=== PATIENT | male | born 1980 | race Caucasian/White ===

== ENCOUNTER 2016-03-21 15:28 | Observation (INO) | payer MEDICAID ==
[~2016-03-21] VITALS: Ht 182.9 cm; Wt 106.0 kg
[2016-03-21 15:28] VITALS: BP 119/70; PULSE 96; RESP 18; TEMP 98; O2SAT 97
--- NOTE | 2016-03-21 15:49 | PD ---
HPI Chief Complaint: Psychiatric Symptoms Time Seen by Provider: 15:30 Travel History International Travel<30 days: No Contact w/Intl Traveler<30days: No Traveled to known affect area: No History of Present Illness HPI 36-year-old male brought in by ambulance after being brought first to [facility] under Diaz act by PD for intentional overdose, here for medical clearance. The patient admits to taking ten 300 mg Seroquel, one 25 mg Vistaril, one 40 mg Prozac, and two 100 mg gabapentin earlier today. The patient admits to doing this in an attempt to kill himself. He drank alcohol yesterday, but denies alcohol or illicit drugs today. He states he feels a little bit dizzy. No other physical complaints. [facility] Social History Tobacco Use: Yes Allergies-Medications (Allergen,Severity, Reaction): Coded Allergies: No Known Allergies (Unverified , 03/21/16) Reported Meds & Prescriptions Reported Meds & Active Scripts Active Reported Seroquel (Quetiapine Fumarate) 100 Mg Tab 100 Mg PO TID Gabapentin 600 Mg Tab 600 Mg PO BID Xanax (Alprazolam) 2 Mg Tab 2 Mg PO DAILY PRN Prozac (Fluoxetine HCl) 40 Mg Cap 40 Mg PO DAILY Vistaril (Hydroxyzine Pamoate) 50 Mg Cap 50 Mg PO DAILY Gabapentin 300 Mg Cap 300 Mg PO BID Review of Systems Except as stated in HPI: all other systems reviewed are Neg Physical Exam Narrative GENERAL: Well-developed, well-nourished, awake, alert, no acute distress. SKIN: Warm and dry. HEAD: Atraumatic. Normocephalic. EYES: Pupils equal and round. No scleral icterus. No injection or drainage. ENT: No nasal bleeding or discharge. Mucous membranes pink and moist. NECK: Trachea midline. No JVD. CARDIOVASCULAR: Regular rate and rhythm. No murmur appreciated. RESPIRATORY: No accessory muscle use. Clear to auscultation. Breath sounds equal bilaterally. GASTROINTESTINAL: Abdomen soft, non-tender, nondistended. MUSCULOSKELETAL: No obvious deformities. No clubbing. No cyanosis. No edema. NEUROLOGICAL: Awake and alert. No obvious cranial nerve deficits. Motor grossly within normal limits. Normal speech. PSYCHIATRIC: Flat affect. Poor eye contact. Data Data Last Documented VS Vital Signs Date Time Temp Pulse Resp B/P Pulse Ox O2 Delivery O2 Flow Rate FiO2 03/21/16 17:10 82 18 115/79 100 Nasal Cannula 2 03/21/16 15:28 98.0 Orders Electrocardiogram (03/21/16 ) Complete Blood Count With Diff (03/21/16 15:30) Comprehensive Metabolic Panel (03/21/16 15:30) Drug Screen, Random Urine (03/21/16 15:30) Alcohol (Ethanol) (03/21/16 15:30) Salicylates (Aspirin) (03/21/16 15:30) Tylenol (Acetaminophen) (03/21/16 15:30) Psych Screen (03/21/16 15:30) Arterial Blood Gas (Abg) (03/21/16 ) Sodium Chlor 0.9% 1000 Ml Inj (Ns 1000 M (03/21/16 16:30) Admit Order (Ed Use Only) (03/21/16 17:24) Place In Observation (03/21/16 ) Labs Laboratory Tests Test 03/21/16 03/21/16 15:40 16:25 White Blood Count 9.1 TH/MM3 Red Blood Count 3.84 MIL/MM3 Hemoglobin 11.5 GM/DL Hematocrit 34.2 % Mean Corpuscular Volume 89.1 FL Mean Corpuscular Hemoglobin 30.0 PG Mean Corpuscular Hemoglobin 33.7 % Concent Red Cell Distribution Width 14.4 % Platelet Count 260 TH/MM3 Mean Platelet Volume 7.6 FL Neutrophils (%) (Auto) 65.2 % Lymphocytes (%) (Auto) 25.0 % Monocytes (%) (Auto) 6.1 % Eosinophils (%) (Auto) 3.5 % Basophils (%) (Auto) 0.2 % Neutrophils # (Auto) 5.9 TH/MM3 Lymphocytes # (Auto) 2.3 TH/MM3 Monocytes # (Auto) 0.6 TH/MM3 Eosinophils # (Auto) 0.3 TH/MM3 Basophils # (Auto) 0.0 TH/MM3 CBC Comment DIFF FINAL Differential Comment Blood Gas Puncture Site RT RADIAL Blood Gas Patient Temperature 98.6 Blood Gas HCO3 28 mmol/L Blood Gas Base Excess 3.6 mmol/L Blood Gas Oxygen Saturation 88 % Arterial Blood pH 7.42 Arterial Blood Partial 44 mmHg Pressure CO2 Arterial Blood Partial 68 mmHG Pressure O2 Arterial Blood Oxygen Content 15.0 Vol % Arterial Blood 3.3 % Carboxyhemoglobin Arterial Blood Methemoglobin 2.1 % Blood Gas Hemoglobin 12.1 G/DL Blood Gas Inspired Oxygen 21 % Sodium Level 142 MEQ/L Potassium Level 4.2 MEQ/L Chloride Level 106 MEQ/L Carbon Dioxide Level 31.7 MEQ/L Anion Gap 4 MEQ/L Blood Urea Nitrogen 8 MG/DL Creatinine 0.95 MG/DL Estimat Glomerular Filtration 89 ML/MIN Rate Random Glucose 115 MG/DL Calcium Level 8.2 MG/DL Total Bilirubin 0.3 MG/DL Aspartate Amino Transf 38 U/L (AST/SGOT) Alanine Aminotransferase 24 U/L (ALT/SGPT) Alkaline Phosphatase 70 U/L Total Protein 6.4 GM/DL Albumin 3.2 GM/DL Salicylates Level LESS THAN 1.7 MG/DL Acetaminophen Level LESS THAN 2.0 MCG/ML Ethyl Alcohol Level LESS THAN 3 MG/DL Urine Opiates Screen NEG Urine Barbiturates Screen NEG Urine Amphetamines Screen NEG Urine Benzodiazepines Screen POS Urine Cocaine Screen NEG Urine Cannabinoids Screen NEG MDM Medical Decision Making Medical Screen Exam Complete: Yes Emergency Medical Condition: Yes Differential Diagnosis Antipsychotic overdose, coingestion, depression, suicidal ideation Narrative Course Poison control contacted shortly after the patient arrived to the emergency department and they recommend supportive care along with basic overdose workup. Vital signs reviewed. CBC shows WBCs 9.1, hemoglobin 11.5, hematocrit 34.2, platelets 260. CMP is unremarkable. Tylenol, salicylate, and alcohol levels are negative. Patient remains drowsy but easily arousable. His QRS is slightly prolonged at 118. His QTc interval was 423. I again discussed the case with poison control who states that the patient should be admitted for telemetry monitoring and can be cleared for psychiatric evaluation tomorrow morning. Case discussed with hospitalist Dr. Fernandez who will admit the patient to her service. Diagnosis Primary Impression: Antipsychotic overdose Qualified Code: T43.502A - Antipsychotic overdose, intentional self-harm, initial encounter Additional Impression: Suicidal ideation Admitting Information Admitting Physician Requests: Observation Richar Sanchez MD Mar 21, 2016 15:49
[2016-03-21 15:51] LABS: BLOOD GAS BASE EXCESS 3.6 mmol/L (-2-2); BLOOD GAS CARBOXYHEMOGLOBIN 3.3 % (0-4); BLOOD GAS HCO3 28 mmol/L (22-26); BLOOD GAS METHEMOGLOBIN 2.1 % (0-2); BLOOD GAS O2 HGB SATURATION 88 % (90-100); BLOOD GAS PCO2 44 mmHg (38-42); BLOOD GAS PO2 68 mmHG (61-120); BLOOD GAS TOTAL HGB 12.1 G/DL (12.0-16.0); CRITICAL VALUE YES; DRAW SITE RT RADIAL; FIO2 21 %; NUMBER OF ARTERIAL PUNCTURES 1; STAT YES; TEMP CORR TO 98.6; ULNAR PULSE PRESENT
[2016-03-21 16:26] VITALS: BP 110/69; PULSE 88; RESP 18; O2SAT 100
[2016-03-21 16:29] LABS: AUTOMATED NEUTROPHIL # 5.9 TH/MM3 (1.8-7.7); BASOPHIL % 0.2 % (0.0-2.0); EOSINOPHIL # 0.3 TH/MM3 (0-0.4); EOSINOPHIL % 3.5 % (0.0-4.0); HEMATOCRIT 34.2 % (39.0-51.0); HEMO FLAGS DIFF FINAL; LYMPHOCYTE # 2.3 TH/MM3 (1.0-4.8); MEAN CELL VOLUME 89.1 FL (80.0-100.0); MEAN CORPUSCULAR HGB CONC 33.7 % (32.0-36.0); MONO % 6.1 % (0.0-8.0); NEUT % 65.2 % (16.0-70.0); PLATELET COUNT 260 TH/MM3 (150-450); RED BLOOD COUNT 3.84 MIL/MM3 (4.50-5.90); RED CELL DISTRIBUTION WIDTH 14.4 % (11.6-17.2); WHITE BLOOD COUNT 9.1 TH/MM3 (4.0-11.0)
[2016-03-21] MEDS ORDERED: SODIUM CHLOR 0.9% 1000 ML INJ 1,000 ML IV ONE (16:30)
[2016-03-21 16:50] LABS: ACETAMINOPHEN LESS THAN 2.0 MCG/ML (10.0-30.0); ALKALINE PHOSPHATASE 70 U/L (45-117); TOTAL BILIRUBIN ADULT 0.3 MG/DL (0.2-1.0)
[2016-03-21 16:58] LABS: ALT (GPT) 24 U/L (12-78); ANION GAP 4 MEQ/L (5-15); AST (GOT) 38 U/L (15-37); BICARBONATE 31.7 MEQ/L (21.0-32.0); BLOOD UREA NITROGEN 8 MG/DL (7-18); CHLORIDE 106 MEQ/L (98-107); GLOMERULAR FILTRATION RATE 89 ML/MIN (>89); POTASSIUM 4.2 MEQ/L (3.5-5.1); SODIUM (NA) 142 MEQ/L (136-145)
[2016-03-21 17:10] VITALS: BP 115/79; PULSE 82; RESP 18; O2SAT 100
[2016-03-21] MEDS: DEXT 5%-NACL 0.9% 1000 ML INJ 1,000 ML IV SCH (17:38)
[2016-03-21] MEDS ORDERED: XANA2TAB2 PO (17:41)
[2016-03-21] MEDS ORDERED: GABA600T PO (17:41)
[2016-03-21] MEDS ORDERED: GABA300C5 PO (17:41)
[2016-03-21] MEDS ORDERED: AMIT100T2 PO (17:41)
[2016-03-21] MEDS ORDERED: PROZ40CA PO (17:41)
[2016-03-21] MEDS ORDERED: VIST50CA PO (17:41)
[2016-03-21] MEDS ORDERED: SERO100T PO (17:42)
--- NOTE | 2016-03-21 18:03 | HHI.HP ---
[facility] Unknown Admission Diagnosis Seroquel overdose, suicidal ideation Diagnoses: Chief Complaint: " I don't want to live anymore" Travel History International Travel<30 Days: No Contact w/Intl Traveler <30 Da: No Traveled to Known Affected Are: No History of Present Illness There 36-year-old male who was sent here from [facility] [place] for out medical clearance. Patient apparently tried to came to kill himself by taking 10 tablets of Seroquel 300 mg. He states that this is the fifth time he tried to kill himself within the past 6 months. Just about 2 weeks ago he/his wrist. And about 2 months ago he took 100 tablets of Benadryl per patient. Patient now complains of pain chronic pain, and asking for pain medications. He denies any headache fever chills chest pain or shortness of breath. With history of hypertension and takes lisinopril. And for pain he takes tramadol 100 mg 4 times a day, Imuran Neurontin 1200 mg 3 times a day. Review of Systems Constitutional: DENIES: Diaphoretic episodes, Fatigue, Fever, Weight gain, Weight loss, Chills, Dizziness, Change in appetite, Night Sweats Endocrine: DENIES: Heat/cold intolerance, Polydipsia, Polyuria, Polyphagia Eyes: DENIES: Blurred vision, Diplopia, Eye inflammation, Eye pain, Vision loss , Photosensitivity, Double Vision Ears, nose, mouth, throat: DENIES: Tinnitus, Hearing loss, Vertigo, Nasal discharge, Oral lesions, Throat pain, Hoarseness, Ear Pain, Running Nose, Epistaxis, Sinus Pain, Toothache, Odynophagia Respiratory: DENIES: Apneas, Cough, Snoring, Wheezing, Hemoptysis, Sputum production, Shortness of breath Cardiovascular: DENIES: Chest pain, Palpitations, Syncope, Dyspnea on Exertion , PND, Lower Extremity Edema, Orthopnea, Claudication Gastrointestinal: DENIES: Abdominal pain, Black stools, Bloody stools, Constipation, Diarrhea, Nausea, Vomiting, Difficulty Swallowing, Anorexia Genitourinary: DENIES: Sexual dysfunction, Urinary frequency, Urinary incontinence, Urgency, Hematuria, Dysuria, Nocturia, Penile Discharge, Testicular Pain, Testicular Swelling Musculoskeletal: DENIES: Joint pain, Muscle aches, Stiffness, Joint Swelling, Back pain, Neck pain Integumentary: DENIES: Abnormal pigmentation, Nail changes, Pruritus, Rash Hematologic/lymphatic: DENIES: Bruising, Lymphadenopathy Immunologic/allergic: DENIES: Eczema, Urticaria Neurologic: DENIES: Abnormal gait, Headache, Localized weakness, Paresthesias, Seizures, Speech Problems, Tremor, Poor Balance Psychiatric: COMPLAINS OF: Depression Past Family Social History Past Medical History Depression Hypertension Neuropathy/chronic pain Past Surgical History States he had right leg surgery skin graft secondary to beltran Reported Medications Reportedly lisinopril 5 mg daily, tramadol 50 mg 4 times a day, Seroquel, Prozac , Vistaril, Advil Allergies: Coded Allergies: No Known Allergies (Unverified , 03/21/16) Family History Noncontributory Social History Smokes occasionally in History of alcoholism and has been sober for 2-1/2 years but started drinking again 2-3 weeks ago Denies substance abuse Physical Exam Vital Signs Vital Signs Date Time Temp Pulse Resp B/P Pulse Ox O2 Delivery O2 Flow Rate FiO2 03/21/16 17:10 82 18 115/79 100 Nasal Cannula 2 03/21/16 16:26 88 18 110/69 100 Nasal Cannula 2 03/21/16 15:30 98 18 03/21/16 15:28 98.0 96 18 119/70 97 Physical Exam GENERAL: Appears depressed, angry SKIN: No rashes, ecchymoses or lesions. Cool and dry. HEAD: Atraumatic. Normocephalic. No temporal or scalp tenderness. EYES: Pupils equal round and reactive. Extraocular motions intact. No scleral icterus. No injection or drainage. ENT: Nose without bleeding, purulent drainage or septal hematoma. Throat without erythema, tonsillar hypertrophy or exudate. Uvula midline. Airway patent. NECK: Trachea midline. No JVD or lymphadenopathy. Supple, nontender, no meningeal signs. CARDIOVASCULAR: Regular rate and rhythm without murmurs, gallops, or rubs. RESPIRATORY: Clear to auscultation. Breath sounds equal bilaterally. No wheezes , rales, or rhonchi. GASTROINTESTINAL: Abdomen soft, non-tender, nondistended. No hepato-splenomegaly , or palpable masses. No guarding. MUSCULOSKELETAL: Extremities without clubbing, cyanosis, or edema. No joint tenderness, effusion, or edema noted. No calf tenderness. Negative Homans sign bilaterally. NEUROLOGICAL: Awake and alert. Cranial nerves II through XII intact. Motor and sensory grossly within normal limits. Five out of 5 muscle strength in all muscle groups. Normal speech. Laboratory Laboratory Tests Test 03/21/16 15:40 White Blood Count 9.1 Red Blood Count 3.84 Hemoglobin 11.5 Hematocrit 34.2 Mean Corpuscular Volume 89.1 Mean Corpuscular Hemoglobin 30.0 Mean Corpuscular Hemoglobin 33.7 Concent Red Cell Distribution Width 14.4 Platelet Count 260 Mean Platelet Volume 7.6 Neutrophils (%) (Auto) 65.2 Lymphocytes (%) (Auto) 25.0 Monocytes (%) (Auto) 6.1 Eosinophils (%) (Auto) 3.5 Basophils (%) (Auto) 0.2 Neutrophils # (Auto) 5.9 Lymphocytes # (Auto) 2.3 Monocytes # (Auto) 0.6 Eosinophils # (Auto) 0.3 Basophils # (Auto) 0.0 CBC Comment DIFF FINAL Differential Comment Blood Gas Puncture Site RT RADIAL Blood Gas Patient Temperature 98.6 Blood Gas HCO3 28 Blood Gas Base Excess 3.6 Blood Gas Oxygen Saturation 88 Arterial Blood pH 7.42 Arterial Blood Partial 44 Pressure CO2 Arterial Blood Partial 68 Pressure O2 Arterial Blood Oxygen Content 15.0 Arterial Blood 3.3 Carboxyhemoglobin Arterial Blood Methemoglobin 2.1 Blood Gas Hemoglobin 12.1 Blood Gas Inspired Oxygen 21 Sodium Level 142 Potassium Level 4.2 Chloride Level 106 Carbon Dioxide Level 31.7 Anion Gap 4 Blood Urea Nitrogen 8 Creatinine 0.95 Estimat Glomerular Filtration 89 Rate Random Glucose 115 Calcium Level 8.2 Total Bilirubin 0.3 Aspartate Amino Transf 38 (AST/SGOT) Alanine Aminotransferase 24 (ALT/SGPT) Alkaline Phosphatase 70 Total Protein 6.4 Albumin 3.2 Salicylates Level LESS THAN 1.7 Acetaminophen Level LESS THAN 2.0 Ethyl Alcohol Level LESS THAN 3 Result Diagram: 03/21/16 1540 03/21/16 1540 Assessment and Plan Assessment and Plan 36-year-old male with Depression with suicidal ideations.. History of multiple attempts in the past Consult psychiatry service definitely will need inpatient psychiatry for further management. Acute Respiratory failure with hypoxemia 02 NC . should improve when Seroquel effect wears off History of chronic pain/neuropathy Continue on Neurontin. We'll start patient on Tylenol with codeine every 6 hours when necessary for pain History of Hypertension - on Lisinopril as OP MOnitor and restart in am HIstory of Alcohol Abuse sober but started drinking 2-3 weeks ago Libirum low dose. Monitor for DTs Increase activity- encourage ambulation Discussed Condition With patient Brii Fernandez MD Mar 21, 2016 18:03
[2016-03-21 18:09] LABS: AMPHETAMINE, URINE NEG (NEG); BARBITURATES, URINE NEG (NEG); COCAINE, URINE NEG (NEG)
[2016-03-21 18:32] VITALS: BP 143/81; PULSE 89; RESP 17; TEMP 97.8; O2SAT 100
[2016-03-21 19:01] VITALS: BP 118/82; PULSE 83; RESP 18; TEMP 98; O2SAT 99
[2016-03-21] MEDS: ACETAMINOPHEN/CODEINE 300 MG/30 MG TAB PO PRN (19:07)
[2016-03-21] MEDS: GABAPENTIN 300 MG CAP PO SCH ×3 (21:00→21:12)
[2016-03-21] MEDS: AMITRIPTYLINE HCL 100 MG TAB PO SCH (21:12)
[2016-03-21] MEDS ORDERED: ALPRAZolam 0.25 MG TAB PO ONE (23:30)
[2016-03-22] VITALS (8 sets, daily range): BP systolic 116–134; BP diastolic 75–90; PULSE 66–97; RESP 18–20; TEMP 97–98.6; O2SAT 94–100
[2016-03-22] MEDS: DEXT 5%-NACL 0.9% 1000 ML INJ 1,000 ML IV SCH (05:48)
--- NOTE | 2016-03-22 08:00 | HHI.PR ---
Subjective Remarks affect blunt- denies any pain still having suicidal ideations but no specific plans appears depressed voiding well, no headache, nausea or vomiting now states he is on several medications- dosages varying and inconsistent when I ask him and when staff tries to confirm it Objective Vitals Vital Signs Date Time Temp Pulse Resp B/P Pulse Ox O2 Delivery O2 Flow Rate FiO2 03/22/16 07:46 97.0 82 18 134/80 96 03/22/16 00:00 98.1 74 18 116/84 100 03/21/16 20:07 16 03/21/16 19:01 98.0 83 18 118/82 99 Nasal Cannula 2 03/21/16 19:01 83 18 03/21/16 18:32 97.8 89 17 143/81 100 Nasal Cannula 2 03/21/16 17:10 82 18 115/79 100 Nasal Cannula 2 03/21/16 16:26 88 18 110/69 100 Nasal Cannula 2 03/21/16 15:30 98 18 03/21/16 15:28 98.0 96 18 119/70 97 I/O 03/21/16 03/21/16 03/21/16 03/22/16 03/22/16 03/22/16 07:00 15:00 23:00 07:00 15:00 23:00 Intake Total 200 ml Output Total 500 ml Balance -300 ml Intake Oral 200 ml Output Urine Total 500 ml # Voids 1 # Bowel Movements 0 Result Diagram: 03/21/16 1540 03/21/16 1540 Objective Remarks blunt affect anicteric neck supple lungs no rales or wheezes regular rhythm abdomen soft, nontender extremities no edema neuro exam unremarkable, A/P Assessment and Plan 36-year-old male with Depression with suicidal ideations.. History of multiple attempts in the past Psychiatry service consulted-- candidate for inpatient admission- she will benefit from our inpatient unit continue current regimen- he is giving us different dosages- we will try to call Brittany in [place] to confirm continue Diaz act/sitter Acute Respiratory failure with hypoxemia- resolved get Sats at room air- 96% - awake and alert History of chronic pain/neuropathy Continue on Neurontin- will confirm dose We'll start patient on Tylenol with codeine every 6 hours when necessary for pain History of Hypertension - on Lisinopril as OP restart this am History of alcohol abuse no DTs. monitor Increase activity- encourage ambulation Transfer to Psychiatry unit if accepted by service after evaluation Brii Fernandez MD Mar 22, 2016 08:00
[2016-03-22] MEDS ORDERED: LISI-519 PO (08:45)
[2016-03-22] MEDS: GABAPENTIN 300 MG CAP PO SCH ×4 (08:54→20:32)
[2016-03-22] MEDS: FLUoxetine HCL 20 MG CAP PO SCH (08:55)
[2016-03-22] MEDS ORDERED: ALPR1TAB3 PO (09:22)
[2016-03-22] MEDS ORDERED: QUET1TAB10 PO (09:22)
[2016-03-22] MEDS ORDERED: AMIT100T2 PO (09:22)
[2016-03-22] MEDS ORDERED: QUET1TAB9 PO (09:22)
[2016-03-22] MEDS ORDERED: GABA600T PO (09:22)
[2016-03-22] MEDS ORDERED: PILL SPLITTER OTHER PRN (09:30)
[2016-03-22] MEDS: LISINOPRIL 5 MG TAB PO SCH (09:51)
[2016-03-22] MEDS: ACETAMINOPHEN/CODEINE 300 MG/30 MG TAB PO PRN ×2 (11:47→18:04)
[2016-03-22] MEDS: ALPRAZolam 1 MG TAB PO SCH ×2 (11:47→20:32)
--- NOTE | 2016-03-22 13:10 | PD.CONS ---
Provisional Diagnosis Admission Date Mar 21, 2016 at 17:25 Portal I. Major depressive disorder, recurrent, severe, without psychosis Portal II. Deferred Portal III. HTN Portal IV. Poor social and family support Portal V. 45 History of Present Illness Service Psychiatry Consult Requested By Primary Care Physician Unknown HPI The patient is a 36-year-old man, domicile with his mother, unemployed , on SSI process, with psychiatric history of depression and anxiety, about 4 previous psychiatric hospitalizations, last one was 3 weeks ago in [place], previous suicidal attempts, history of self cutting behavior, he is in outpatient psychiatric care in [facility], he is on Xanax 2 mg twice a day, amitriptyline 50 mg, Seroquel 300 mg, gabapentin 200 mg 3 times a day, medical history of hypertension, who was sent here from [facility] for out medical clearance. Patient apparently tried to kill himself by taking 10 tablets of Seroquel 300 mg. He states that this is the fifth time he tried to kill himself within the past 6 months. Just about 2 weeks ago he/his wrist. And about 2 months ago he took 100 tablets of Benadryl per patient. On psychiatric evaluation today patient was at the beginning guarded, a little bit oppositional, but later on with redirection he opened up. Patient states that at this moment he feels extremely depressed and also anxious, he says that since he is in the ER he hasn't have his Ativan, benzodiazepines or medications for pain. Patient says that for the last 3 months he has been very depressed, he has attempted to commit suicide about 5 or 6 times unsuccessfully. Last night, without any reason, he doesn't identify any acute stressor, he felt very depressed and tried to commit suicide by overdosing with 10 pills of Seroquel 300 mg. Patient says that he is in the process of divorce, is unemployed, awaiting for SSI, with a lot of economical stressors, and he feels that he doesn 't have any reason to live. The last 3 weeks he has been feeling hopeless, helpless, worthless, he hasn't been sleeping well, he has been having intrusive thoughts of committing suicide, she says that he was to commit suicide by overdose. He denies visual and auditory hallucinations. Patient is oriented 3 , confusion, no attention deficit, no fluctuation of consciousness observed. As the patient was talking about his depression he broke into tears. Also during the evaluation patient asked for Ativan, xanax and opiates were present in several occasions. He denies the use of illicit drugs, he denies the use of alcohol. Review of Systems Constitutional: DENIES: Diaphoretic episodes, Fatigue, Fever, Weight gain, Weight loss, Chills, Dizziness, Change in appetite, Night Sweats Endocrine: DENIES: Heat/cold intolerance, Polydipsia, Polyuria, Polyphagia Eyes: DENIES: Blurred vision, Diplopia, Eye inflammation, Eye pain, Vision loss , Photosensitivity, Double Vision Ears, nose, mouth, throat: DENIES: Tinnitus, Hearing loss, Vertigo, Nasal discharge, Oral lesions, Throat pain, Hoarseness, Ear Pain, Running Nose, Epistaxis, Sinus Pain, Toothache, Odynophagia Cardiovascular: DENIES: Chest pain, Palpitations, Syncope, Dyspnea on Exertion , PND, Lower Extremity Edema, Orthopnea, Claudication Gastrointestinal: DENIES: Abdominal pain, Black stools, Bloody stools, Constipation, Diarrhea, Nausea, Vomiting, Difficulty Swallowing, Anorexia Genitourinary: DENIES: Sexual dysfunction, Urinary frequency, Urinary incontinence, Urgency, Hematuria, Dysuria, Nocturia, Penile Discharge, Testicular Pain, Testicular Swelling Musculoskeletal: DENIES: Joint pain, Muscle aches, Stiffness, Joint Swelling, Back pain, Neck pain Integumentary: DENIES: Abnormal pigmentation, Nail changes, Pruritus, Rash Hematologic/lymphatic: DENIES: Bruising, Lymphadenopathy Immunologic/allergic: DENIES: Eczema, Urticaria Psychiatric: COMPLAINS OF: Anxiety, Depression, Suicidal Ideation Past Family Social History Coded Allergies: No Known Allergies (Unverified , 03/21/16) Reported Medications Quetiapine 300 Mg [id number] Mg PO HS #30 TAB Ref 0 03/22/16 Quetiapine 200 Mg [id number] Mg PO BID #60 TAB Ref 0 03/22/16 Amitriptyline 100 Mg [id number] Mg PO DAILY 03/22/16 Gabapentin 600 Mg [id number] Mg PO TID #90 TAB Ref 0 03/22/16 Alprazolam 1 Mg Tab1 Mg PO Q6H PRN (ANXIETY) Ref 0 03/22/16 Lisinopril 5 Mg Tab5 Mg PO DAILY Ref 0 03/22/16 Fluoxetine (Prozac)40 Mg Cap40 Mg PO DAILY #30 CAP Ref 0 03/21/16 Hydroxyzine Pamoate (Vistaril)50 Mg Cap50 Mg PO DAILY Ref 0 03/21/16 Discontinued Reported Medications Amitriptyline 100 Mg [id number] Mg PO HS #30 TAB Ref 0 03/21/16 Current Medications Medications (Trade) Dose Ordered Sig/Brenda Route Start Time Stop Time Status Last Admin (Elavil) 100 mg HS PO 03/21/16 21:00 03/21/16 21:12 (PROzac) 40 mg DAILY PO 03/22/16 09:00 03/22/16 08:55 (Neurontin) 300 mg BID PO 03/21/16 21:00 03/22/16 08:54 (Neurontin) 600 mg BID PO 03/21/16 21:00 03/22/16 08:54 (Vistaril) 50 mg DAILY PO 03/22/16 09:00 03/22/16 08:55 (Tylenol-Codeine #3) 1 tab Q6H PRN PO 03/21/16 18:15 03/22/16 11:47 (Prinivil) 2.5 mg DAILY PO 03/22/16 09:15 03/22/16 09:51 (Pill Splitter) 1 ea UNSCH PRN OTHER 03/22/16 09:30 (Xanax) 1 mg Q8H PO 03/22/16 12:00 03/22/16 11:47 Family History He denies Social History He was born and raised in [place], he lives with his mother, he is but , now in the process of , he has 2 kids, is unemployed, in the process of SSI, his highest level of education is high school. Physical Exam Vital Signs Vital Signs Date Time Temp Pulse Resp B/P Pulse Ox O2 Delivery O2 Flow Rate FiO2 03/22/16 11:57 18 128/90 94 03/22/16 09:34 97 03/22/16 07:46 97.0 03/21/16 19:01 Nasal Cannula 2 I/O 03/21/16 03/21/16 03/22/16 08:00 16:00 00:00 Intake Total 200 ml Output Total 500 ml Balance -300 ml Mental Status Examination Appearance man, age appearing, good hygiene, [facility], cooperative, but irritable and tearful Speech: Unremarkable Orientation: x3 Memory: Unremarkable Thought Process: Logical Thought Content: Unremarkable Hallucination Type: None Attention and Concentration: Good Suicidal Ideation: Yes Previous Suicide Attempts: Yes Homicidal Ideation: No Previous Homicide Attempts: No Insight: Poor Judgement: Poor Affect: Irritable Mood: Sad Motor Activity: Normal gait Assessment & Plan Problem List: (1) Major depression, recurrent Assessment & Plan: The patient is a 36-year-old man, domicile with his mother, unemployed, on SSI process, with psychiatric history of depression and anxiety, about 4 previous psychiatric hospitalizations, last one was 3 weeks ago in [place], previous suicidal attempts, history of self cutting behavior, he is in outpatient psychiatric care in [facility], he is on Xanax 2 mg twice a day, amitriptyline 50 mg, Seroquel 300 mg, gabapentin 300 mg 3 times a day, medical history of hypertension, who was sent here from [facility] for out medical clearance after he tried to kill himself by taking 10 tablets of Seroquel 300 mg. Psychiatric evaluation the patient reports about 3 months of active depression In the context of identified acute stressor, depression has exacerbated in the last 3 weeks, patient cannot identify a reason. He reports trying to commit suicide about 5 times in the last 3 weeks. He reports hopelessness, helplessness, continuous sadness, anhedonia, low energy, poor sleep, suicidal ideation with a plan of overdosing, he denies homicidal ideation, he denies perceptual disturbances.. Due to the severity of the depression and suicidal ideation with a recent suicidal attempt patient represents at elevated risk for suicidality and needs psychiatric admission for hospitalization. Please transfer to psychiatric [facility] once patient is medically clear. [facility] drug-seeking behavior, potential benzodiazepines withdrawal. Restart Xanax 1 mg 3 times a day, amitriptyline 50 mg, Seroquel 200 mg at bedtime, gabapentin 300 mg 3 times a day, Support, motivation, psycho education provided ICD Code: F33.9 Assessment & Plan Estimated LOS: days Problem Qualifiers (1) Major depression, recurrent: Jorge Terry MD Mar 22, 2016 13:10
--- NOTE | 2016-03-22 13:34 | EKG ---
Date Performed: 03/21/2016 Time Performed: 15:35:05 PTAGE: 36 years EKG: Sinus rhythm MODERATE INTRAVENTRICULAR CONDUCTION DELAY BORDERLINE ECG NO PREVIOUS TRACING DOCTOR: Hilda Hanna Interpretating Date/Time 03/22/2016 13:30:40
[2016-03-22] MEDS: AMITRIPTYLINE HCL 100 MG TAB PO SCH (20:32)
[2016-03-23 03:48] VITALS: BP 117/76; PULSE 71; RESP 18; TEMP 98.6; O2SAT 95
[2016-03-23] MEDS: ALPRAZolam 1 MG TAB PO SCH ×2 (04:14→12:06)
--- NOTE | 2016-03-23 07:29 | HHI.PR ---
Subjective Remarks patient overnight states slept well, says "I don't want to live" no complains of dizziness of chest pain complains of leg pain- chronic Objective Vitals Vital Signs Date Time Temp Pulse Resp B/P Pulse Ox O2 Delivery O2 Flow Rate FiO2 03/23/16 03:48 98.6 71 18 117/76 95 03/22/16 23:35 98.6 72 18 124/75 96 03/22/16 20:03 84 03/22/16 18:22 77 20 129/80 95 03/22/16 16:18 66 18 118/83 95 03/22/16 11:57 18 128/90 94 03/22/16 09:34 97 03/22/16 07:46 97.0 82 18 134/80 96 I/O 03/22/16 03/22/16 03/22/16 03/23/16 03/23/16 03/23/16 06:59 14:59 22:59 06:59 14:59 22:59 Intake Total 700 ml Balance 700 ml Intake Oral 600 ml IV Total 100 ml # Voids 3 Result Diagram: 03/21/16 1540 03/21/16 1540 Objective Remarks blunt affect but more interactive anicteric neck supple lungs no rales or wheezes regular rhythm abdomen soft, nontender extremities no edema, good peripheral pulses neuro exam unremarkable, A/P Assessment and Plan 36-year-old male with Depression with suicidal ideations.. History of multiple attempts in the past Psychiatry service consulted-- candidate for inpatient admission- he will benefit from our inpatient unit continue Diaz act/sitter seen by Dr. Terry- transfer to psychiatry inpatient unit Acute Respiratory failure with hypoxemia- resolved History of chronic pain/neuropathy Continue on Neurontin- increase dose to 900 mg po tid Restart his Tramadol 50 mg po tid DC tylenol #3 History of Hypertension - on Lisinopril History of alcohol abuse no DTs. monitor Increase activity- encourage ambulation Medically stable for DC today Transfer to Psychiatry unit Diet- heart healthy Activity- as tolerated Meds as above Transfer to psychiatry unit for further management Brii Fernandez MD Mar 23, 2016 07:29
[2016-03-23] MEDS ORDERED: LISI-519 PO (07:42)
[2016-03-23] MEDS ORDERED: ULTR50TA5 PO (07:42)
[2016-03-23] MEDS ORDERED: NEUR300C PO (07:42)
[2016-03-23] MEDS ORDERED: FLUO20CA4 PO (07:44)
[2016-03-23] MEDS ORDERED: XANA1TAB2 PO (07:44)
[2016-03-23] MEDS ORDERED: traMADol HCL 50 MG TAB PO PRN (07:45)
[2016-03-23] MEDS: FLUoxetine HCL 20 MG CAP PO SCH (08:17)
[2016-03-23] MEDS: LISINOPRIL 5 MG TAB PO SCH (08:17)
[2016-03-23] MEDS: GABAPENTIN 300 MG CAP PO SCH ×2 (08:19→12:06)
[2016-03-23 08:39] VITALS: BP 160/96; PULSE 81; RESP 18; TEMP 98.3; O2SAT 96
[2016-03-23 09:42] VITALS: RESP 18
== END 2016-03-23 15:07 ==
LOC: NEPC 15:28 → NEDA 17:25 → NEPHCDU 21:23
PROVIDERS: ADMIT Internal Medicine; ATTEND Internal Medicine
DX: T43.592A Poisoning by other antipsychotics and neuroleptics, intentional self-harm, initial encounter (principal); T43.222A Poisoning by selective serotonin reuptake inhibitors, intentional self-harm, initial encounter; Z79.899 Other long term (current) drug therapy; I10 Essential (primary) hypertension; G89.29 Other chronic pain; F33.9 Major depressive disorder, recurrent, unspecified; J96.01 Acute respiratory failure with hypoxia; F10.10 Alcohol abuse, uncomplicated
CPT/HCPCS: 36600; 80053; 80307; 80320; 80329; 82805; 85025; 93005; 96360; G0378; G0480; J7030; J7042

== ENCOUNTER 2016-03-23 11:00 | Inpatient (IN) | payer MEDICAID ==
[~2016-03-23 11:00] MED LIST: ALPR1TAB3 PO; AMIT100T2 PO; FLUO20CA4 PO; GABA600T PO; LISI-519 PO; NEUR300C PO; PROZ40CA PO; QUET1TAB10 PO; QUET1TAB9 PO; ULTR50TA5 PO; VIST50CA PO; XANA1TAB2 PO
[2016-03-23 15:26] VITALS: BP 134/87; PULSE 99; RESP 20; TEMP 98.7; O2SAT 95
[2016-03-23] MEDS ORDERED: LORazepam 1 MG TAB PO PRN (15:45)
[2016-03-23] MEDS ORDERED: ALUMINUM/MAGNESIUM/SIMETH 30 ML CUP PO PRN (15:45)
[2016-03-23] MEDS ORDERED: MAGNESIUM HYDROXIDE SUSP 30 ML CUP PO PRN (15:45)
[2016-03-23] MEDS ORDERED: LORazepam 2 MG/ML VIAL IM PRN (15:45)
[2016-03-23] MEDS ORDERED: PILL SPLITTER OTHER PRN (16:45)
[2016-03-23] MEDS: GABAPENTIN 300 MG CAP PO SCH (17:51)
[2016-03-23] MEDS: REMOVE OLD NICOTINE PATCH T-DERMAL SCH (21:00)
[2016-03-23] MEDS: ALPRAZolam 1 MG TAB PO SCH (21:24)
[2016-03-23] MEDS: AMITRIPTYLINE HCL 100 MG TAB PO SCH (21:24)
[2016-03-23 21:49] VITALS: BP 127/68; PULSE 90; RESP 18; TEMP 97.1; O2SAT 96
[2016-03-23] MEDS: traMADol HCL 50 MG TAB PO PRN (22:42)
[2016-03-24] MEDS: ALPRAZolam 1 MG TAB PO SCH ×2 (04:00→12:25)
[2016-03-24 05:47] VITALS: BP 149/81; PULSE 104; RESP 18; TEMP 98.4; O2SAT 96
[2016-03-24] MEDS: traMADol HCL 50 MG TAB PO PRN ×2 (06:49→20:07)
[2016-03-24] MEDS: ACETAMINOPHEN 325 MG TAB PO PRN (06:50)
[2016-03-24 08:00] LABS: ANION GAP 5 MEQ/L (5-15); BLOOD UREA NITROGEN 17 MG/DL (7-18); CHLORIDE 102 MEQ/L (98-107); GLOMERULAR FILTRATION RATE 89 ML/MIN (>89); POTASSIUM 4.2 MEQ/L (3.5-5.1); SODIUM (NA) 137 MEQ/L (136-145)
[2016-03-24] MEDS ORDERED: cloNIDine HCL 0.1 MG TAB PO PRN (08:00)
[2016-03-24 08:03] LABS: HDL CHOLESTEROL 63.9 MG/DL (40.0-60.0); LDL CHOLESTEROL 70 MG/DL (0-99)
[2016-03-24 08:50] LABS: FERRITIN 21 NG/ML (26-388); TRANSFERRIN IRON PROFILE 235 MG/DL (200-360)
[2016-03-24] MEDS: FLUoxetine HCL 20 MG CAP PO SCH (08:57)
[2016-03-24] MEDS: NICOTINE 21 MG/24 HR PATCH T-DERMAL SCH (08:57)
[2016-03-24] MEDS: GABAPENTIN 300 MG CAP PO SCH ×3 (08:57→18:13)
[2016-03-24] MEDS: LISINOPRIL 5 MG TAB PO SCH (08:58)
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
[2016-03-24] MEDS ORDERED: LORazepam 2 MG/ML VIAL IM PRN ×4 (14:00)
[2016-03-24] MEDS ORDERED: LORazepam 2 MG TAB PO PRN (14:00)
[2016-03-24] MEDS ORDERED: FLUMAZENIL 0.5 MG/5 ML VIAL IV PUSH PRN (14:00)
[2016-03-24] MEDS ORDERED: LORazepam 1 MG TAB PO PRN (14:00)
[2016-03-24] MEDS ORDERED: HALOPERIDOL LACTATE 5 MG/ML AMP IM ONE (14:30)
[2016-03-24] MEDS ORDERED: diphenhydrAMINE HCL 50 MG/ML VIAL IM ONE (14:30)
[2016-03-24 15:58] LABS: HEMOGLOBIN A1a 1.1 %; HEMOGLOBIN A1b 0.7 %; HEMOGLOBIN Ao 85.1 %; HEMOGLOBIN F 1.5 %; HEMOGLOBIN LA1C 1.9 %; HEMOGLOBIN P3 3.6 %
[2016-03-24] MEDS: QUEtiapine FUMARATE 100 MG TAB PO SCH (16:35)
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
[2016-03-24] MEDS ORDERED: DOCUSATE SODIUM 50 MG/SENNA 8.6 MG TAB PO PRN (17:00)
[2016-03-24 18:20] VITALS: BP 101/57; PULSE 70; RESP 16; TEMP 98.7; O2SAT 97
[2016-03-24] MEDS: DOCUSATE SODIUM 100 MG CAP PO SCH (20:07)
[2016-03-24] MEDS: QUEtiapine FUMARATE 300 MG TAB PO SCH (20:07)
[2016-03-24] MEDS: AMITRIPTYLINE HCL 100 MG TAB PO SCH (20:07)
[2016-03-24] MEDS: REMOVE OLD NICOTINE PATCH T-DERMAL SCH (21:00)
[2016-03-24] MEDS: hydrOXYzine PAMOATE 25 MG CAP PO PRN (22:14)
[2016-03-25 06:14] VITALS: BP 114/77; PULSE 99; RESP 18; TEMP 98.4
[2016-03-25] MEDS: NICOTINE 21 MG/24 HR PATCH T-DERMAL SCH (09:00)
[2016-03-25] MEDS: POLYETHYLENE GLYCOL 17 GM PKG PO SCH (09:00)
[2016-03-25] MEDS: DOCUSATE SODIUM 100 MG CAP PO SCH ×2 (09:29→20:06)
[2016-03-25] MEDS: FLUoxetine HCL 20 MG CAP PO SCH (09:29)
[2016-03-25] MEDS: GABAPENTIN 300 MG CAP PO SCH ×3 (09:29→17:40)
[2016-03-25] MEDS: LISINOPRIL 5 MG TAB PO SCH (09:30)
[2016-03-25] MEDS: QUEtiapine FUMARATE 100 MG TAB PO SCH ×3 (09:30→17:39)
[2016-03-25] MEDS: hydrOXYzine PAMOATE 25 MG CAP PO PRN ×2 (09:33→12:59)
[2016-03-25] MEDS: traMADol HCL 50 MG TAB PO PRN ×2 (09:34→20:07)
--- NOTE | 2016-03-25 11:59 | HHI.PYPN ---
Subjective Remarks Patient seen and examined with nursing staff. Chart reviewed. No records from outside hospitalizations on paper chart. Case discussed with nursing staff who reports patient apologized for his behavior yesterday remains fairly needy and dramatic. On my examination today, the patient reports that his leg pain is somewhat improved now that he is back on his reported full dose of gabapentin. His mood remains fairly depressed and he says that he is still having thoughts of self-harm although he does not report any desire to hurt himself on the inpatient psychiatric unit. We discuss risk for serotonin syndrome given that he is on multiple agents affecting the serotonin system, but the patient feels that he is in need of additional antidepressant effect, and we discussed the risks and benefits of a titration of his amitriptyline to target mood and also chronic pain symptoms. Patient denies side effects from current medications. Requests Lidoderm patch for his leg. Review of Systems Other Pain in leg is improved somewhat today. No other somatic complaints. Objective Alert: Yes [place]: Person (O x 3) Mood: Depressed Affect: Restricted (dysphoric) Memory Intact: Comment (Intact on clinical exam) Hallucinations: Other (no AVH) Delusions: No Delusion Type: Other (no delusions) Suicidal: Ideation (ongoing suicidal ideation) Homicidal: Ideation (No HI) Insight/Judgement Fair Remarks No motoric abnormalities noted. Thought process linear. Speech within normal limits for rate, tone and volume. There does appear to be some skin on the leg that is not scarred to which we might affix a Lidoderm patch. Labs Labs reviewed. No new labs. Vitals/IOs Vital Signs Date Time Temp Pulse Resp B/P Pulse Ox O2 Delivery O2 Flow Rate FiO2 03/25/16 06:14 98.4 99 18 114/77 03/24/16 18:20 97 Assessment & Plan Problem List: (1) Major depressive disorder, recurrent severe without psychotic features Assessment & Plan: Rule out component of medication seeking and personality disorder. ICD Code: F33.2 (2) Chronic pain disorder ICD Code: G89.4 Assessment & Plan Patient's medication seeking behavior and antisocial personality traits seem somewhat reduced today. Depressive symptoms do persist, and I will adjust the diagnosis accordingly. Titrate amitriptyline over the weekend to target mood and chronic neuropathic pain. I have discussed the risks and benefits of this change with the patient in detail. Lidoderm patch to the leg. Continue other psychotropics as ordered. Continue other medications and care as ordered. Appreciate hospitalist category consultant input. Justification for Cont. Inpt. Ongoing impairments in safety. Complicating conditions (chronic pain). High risk for decompensation. Discharge Planning Pending psychiatric stabilization Request HC Surrog/Guard Advoc?: No Bj Romero MD Mar 25, 2016 11:59
[2016-03-25] MEDS: LIDOCAINE HCL 5% PATCH TD SCH (15:00)
[2016-03-25] MEDS ORDERED: diphenhydrAMINE HCL 50 MG/ML VIAL IM STA (15:36)
[2016-03-25] MEDS ORDERED: HALOPERIDOL LACTATE 5 MG/ML AMP IM STA (15:36)
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
[2016-03-25 19:40] VITALS: BP 150/75; PULSE 83; RESP 18; TEMP 98.5; O2SAT 97
[2016-03-25] MEDS: QUEtiapine FUMARATE 300 MG TAB PO SCH (20:06)
[2016-03-25] MEDS: AMITRIPTYLINE HCL 50 MG TAB PO SCH (20:07)
[2016-03-25] MEDS: REMOVE OLD PATCH T-DERMAL SCH (21:00)
[2016-03-25] MEDS: REMOVE OLD NICOTINE PATCH T-DERMAL SCH (21:00)
[2016-03-25 22:46] LABS: BLOOD, URINE NEG (NEG); COMMENT (UR) CULT NOT INDICATED; CULTURE IF INDICATED CULT NOT INDICATED; GLUCOSE,URINE NEG (NEG); KETONE, URINE NEG (NEG); NITRITE,URINE NEG (NEG); PH, URINE 6.5 (5.0-8.5); SQUAMOUS EPITHELIAL CELL URINE <1 /hpf (0-5); URINE COLOR LIGHT-YELLOW (YELLW/STRAW)
[2016-03-26] MEDS: hydrOXYzine PAMOATE 25 MG CAP PO PRN ×4 (05:01→21:16)
[2016-03-26 05:25] VITALS: BP 130/82; PULSE 79; RESP 18; TEMP 98; O2SAT 97
[2016-03-26] MEDS: NICOTINE 21 MG/24 HR PATCH T-DERMAL SCH (09:00)
[2016-03-26] MEDS: QUEtiapine FUMARATE 100 MG TAB PO SCH ×3 (09:00→16:40)
[2016-03-26] MEDS: LIDOCAINE HCL 5% PATCH TD SCH (09:00)
[2016-03-26] MEDS: POLYETHYLENE GLYCOL 17 GM PKG PO SCH (09:00)
[2016-03-26] MEDS: FLUoxetine HCL 20 MG CAP PO SCH (09:22)
[2016-03-26] MEDS: GABAPENTIN 300 MG CAP PO SCH ×4 (09:23→18:04)
[2016-03-26] MEDS: LISINOPRIL 5 MG TAB PO SCH (09:23)
[2016-03-26] MEDS: traMADol HCL 50 MG TAB PO PRN (09:23)
[2016-03-26] MEDS: DOCUSATE SODIUM 100 MG CAP PO SCH ×2 (09:25→21:15)
[2016-03-26 09:26] LABS: BASOPHIL % 0.4 % (0.0-2.0); EOSINOPHIL # 0.3 TH/MM3 (0-0.4); EOSINOPHIL % 4.2 % (0.0-4.0); HEMATOCRIT 38.2 % (39.0-51.0); HEMO FLAGS DIFF FINAL; LYMPH % 29.3 % (9.0-44.0); LYMPHOCYTE # 2.1 TH/MM3 (1.0-4.8); MEAN CORPUSCULAR HEMOGLOBIN 31.1 PG (27.0-34.0); MEAN CORPUSCULAR HGB CONC 35.3 % (32.0-36.0); MONO % 8.5 % (0.0-8.0); NEUT % 57.6 % (16.0-70.0); PLATELET COUNT 220 TH/MM3 (150-450); RED BLOOD COUNT 4.34 MIL/MM3 (4.50-5.90); RED CELL DISTRIBUTION WIDTH 14.2 % (11.6-17.2)
[2016-03-26 09:38] LABS: ALKALINE PHOSPHATASE 67 U/L (45-117); ALT (GPT) 31 U/L (12-78); ANION GAP 8 MEQ/L (5-15); BICARBONATE 23.1 MEQ/L (21.0-32.0); CHLORIDE 103 MEQ/L (98-107); GLOMERULAR FILTRATION RATE 88 ML/MIN (>89); SODIUM (NA) 134 MEQ/L (136-145); TOTAL BILIRUBIN ADULT 0.4 MG/DL (0.2-1.0)
[2016-03-26 09:40] LABS: AST (GOT) 51 U/L (15-37); BLOOD UREA NITROGEN 14 MG/DL (7-18); POTASSIUM 5.7 MEQ/L (3.5-5.1)
--- NOTE | 2016-03-26 12:24 | HHI.PYPN ---
Subjective Remarks Pt seen and discussed with staff. Pt reports that he remains depressed but mood is improving. He ranks mood 5/10. He denies SI/HI. Staff report that pt has been isolative with poor motivation. Review of Systems [facility]iatric: COMPLAINS OF: Depression Objective Alert: Yes [place]: Person, Place, Date, Situation Mood: Depressed Affect: Restricted (dysphoric) Memory Intact: Comment (Intact on clinical exam) Hallucinations: Other (no AVH) Delusions: No Delusion Type: Other (no delusions) Suicidal: Ideation (denies today) Homicidal: Ideation (No HI) Insight/Judgement poor Labs Test 03/25/16 03/26/16 21:50 08:47 Urine Color LIGHT-YELLOW Urine Turbidity CLEAR Urine pH 6.5 Urine Specific [place] 1.011 Urine Protein NEG mg/dL Urine Glucose (UA) NEG mg/dL Urine Ketones NEG mg/dL Urine Occult Blood NEG Urine Nitrite NEG Urine Bilirubin NEG Urine Urobilinogen LESS THAN 2.0 MG/DL Urine Leukocyte Esterase NEG Urine WBC 1 /hpf Urine Squamous Epithelial <1 /hpf Cells Urine Amorphous Sediment RARE Microscopic Urinalysis Comment CULT NOT INDICATED White Blood Count 7.0 TH/MM3 Red Blood Count 4.34 MIL/MM3 Hemoglobin 13.5 GM/DL Hematocrit 38.2 % Mean Corpuscular Volume 88.0 FL Mean Corpuscular Hemoglobin 31.1 PG Mean Corpuscular Hemoglobin 35.3 % Concent Red Cell Distribution Width 14.2 % Platelet Count 220 TH/MM3 Mean Platelet Volume 8.3 FL Neutrophils (%) (Auto) 57.6 % Lymphocytes (%) (Auto) 29.3 % Monocytes (%) (Auto) 8.5 % Eosinophils (%) (Auto) 4.2 % Basophils (%) (Auto) 0.4 % Neutrophils # (Auto) 4.0 TH/MM3 Lymphocytes # (Auto) 2.1 TH/MM3 Monocytes # (Auto) 0.6 TH/MM3 Eosinophils # (Auto) 0.3 TH/MM3 Basophils # (Auto) 0.0 TH/MM3 CBC Comment DIFF FINAL Differential Comment Sodium Level 134 MEQ/L Potassium Level 5.7 MEQ/L Chloride Level 103 MEQ/L Carbon Dioxide Level 23.1 MEQ/L Anion Gap 8 MEQ/L Blood Urea Nitrogen 14 MG/DL Creatinine 0.96 MG/DL Estimat Glomerular Filtration 88 ML/MIN Rate Random Glucose 102 MG/DL Calcium Level 8.5 MG/DL Total Bilirubin 0.4 MG/DL Aspartate Amino Transf 51 U/L (AST/SGOT) Alanine Aminotransferase 31 U/L (ALT/SGPT) Alkaline Phosphatase 67 U/L Total Protein 7.5 GM/DL Albumin 3.3 GM/DL Vitals/IOs Vital Signs Date Time Temp Pulse Resp B/P Pulse Ox O2 Delivery O2 Flow Rate FiO2 03/26/16 05:25 98.0 79 18 130/82 97 Assessment & Plan Problem List: (1) Major depressive disorder, recurrent severe without psychotic features ICD Code: F33.2 (2) Chronic pain disorder ICD Code: G89.4 Assessment & Plan Continue current tx plan. Estimated LOS: days Justification for Cont. Inpt. impairments in safety Request HC Surrog/Guard Advoc?: Diane Cortez MD Mar 26, 2016 12:23
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
[2016-03-26] MEDS ORDERED: SODIUM POLYSTYRENE SULFONATE SUSP 15 GM/60 ML CUP PO ONE ×2 (16:00→18:00)
[2016-03-26 19:42] VITALS: BP 135/84; PULSE 92; RESP 18; TEMP 96.8; O2SAT 98
[2016-03-26] MEDS: REMOVE OLD NICOTINE PATCH T-DERMAL SCH (21:00)
[2016-03-26] MEDS: REMOVE OLD PATCH T-DERMAL SCH (21:00)
[2016-03-26] MEDS: AMITRIPTYLINE HCL 50 MG TAB PO SCH (21:16)
[2016-03-26] MEDS: QUEtiapine FUMARATE 300 MG TAB PO SCH (21:16)
[2016-03-27 05:20] VITALS: BP 138/81; PULSE 82; RESP 18; TEMP 96.9
[2016-03-27] MEDS: QUEtiapine FUMARATE 100 MG TAB PO SCH ×3 (09:00→17:08)
[2016-03-27] MEDS: FLUoxetine HCL 20 MG CAP PO SCH (09:00)
[2016-03-27] MEDS: POLYETHYLENE GLYCOL 17 GM PKG PO SCH (09:00)
[2016-03-27] MEDS: NICOTINE 21 MG/24 HR PATCH T-DERMAL SCH (09:00)
[2016-03-27] MEDS: LIDOCAINE HCL 5% PATCH TD SCH (09:00)
[2016-03-27] MEDS: LISINOPRIL 5 MG TAB PO SCH (09:00)
[2016-03-27] MEDS: DOCUSATE SODIUM 100 MG CAP PO SCH ×2 (09:00→21:24)
[2016-03-27] MEDS: hydrOXYzine PAMOATE 25 MG CAP PO PRN ×4 (09:15→20:05)
[2016-03-27] MEDS: traMADol HCL 50 MG TAB PO PRN (09:30)
[2016-03-27 09:43] VITALS: BP 138/81; PULSE 82; RESP 18; TEMP 96.9; O2SAT 98
[2016-03-27] MEDS: GABAPENTIN 300 MG CAP PO SCH ×2 (13:14→16:50)
--- NOTE | 2016-03-27 14:18 | HHI.PYPN ---
Subjective Remarks Pt seen and discussed with staff. He c/o of irritability today related to chronic pain and lack of getting opiate medication. No SI/HI. He is compliant with medication. No side effects. Objective Alert: Yes [place]: Person, Place, Date, Situation Mood: Depressed Affect: Restricted (dysphoric) Memory Intact: Comment (Intact on clinical exam) Hallucinations: Other (no AVH) Delusions: No Delusion Type: Other (no delusions) Suicidal: Ideation (denies today) Homicidal: Ideation (No HI) Insight/Judgement poor Vitals/IOs Vital Signs Date Time Temp Pulse Resp B/P Pulse Ox O2 Delivery O2 Flow Rate FiO2 03/27/16 09:43 96.9 82 18 138/81 98 Assessment & Plan Problem List: (1) Major depressive disorder, recurrent severe without psychotic features ICD Code: F33.2 (2) Chronic pain disorder ICD Code: G89.4 Assessment & Plan Continue current tx plan. Estimated LOS: days Justification for Cont. Inpt. safety Request HC Surrog/Guard Advoc?: No Diane Cade MD Mar 27, 2016 14:18
[2016-03-27] MEDS: ACETAMINOPHEN 325 MG TAB PO PRN (14:36)
[2016-03-27 15:45] LABS: BICARBONATE 31.5 MEQ/L (21.0-32.0); POTASSIUM 4.4 MEQ/L (3.5-5.1)
[2016-03-27 19:20] VITALS: BP 115/71; PULSE 99; RESP 18; TEMP 98.2; O2SAT 97
[2016-03-27] MEDS: REMOVE OLD PATCH T-DERMAL SCH (21:00)
[2016-03-27] MEDS: REMOVE OLD NICOTINE PATCH T-DERMAL SCH (21:00)
[2016-03-27] MEDS: AMITRIPTYLINE HCL 50 MG TAB PO SCH (21:23)
[2016-03-27] MEDS: QUEtiapine FUMARATE 300 MG TAB PO SCH (21:24)
[2016-03-28 06:02] VITALS: BP 125/69; PULSE 103; RESP 18; TEMP 98.3; O2SAT 99
[2016-03-28] MEDS: LISINOPRIL 5 MG TAB PO SCH (08:45)
[2016-03-28] MEDS: hydrOXYzine PAMOATE 25 MG CAP PO PRN ×3 (08:45→22:00)
[2016-03-28] MEDS: GABAPENTIN 300 MG CAP PO SCH ×3 (08:45→17:24)
[2016-03-28] MEDS: traMADol HCL 50 MG TAB PO PRN ×2 (08:46→20:05)
[2016-03-28] MEDS: FLUoxetine HCL 20 MG CAP PO SCH (08:46)
[2016-03-28] MEDS: DOCUSATE SODIUM 100 MG CAP PO SCH ×2 (08:46→20:04)
[2016-03-28] MEDS: LIDOCAINE HCL 5% PATCH TD SCH (09:00)
[2016-03-28] MEDS: NICOTINE 21 MG/24 HR PATCH T-DERMAL SCH (09:00)
[2016-03-28] MEDS: POLYETHYLENE GLYCOL 17 GM PKG PO SCH (09:00)
[2016-03-28] MEDS: QUEtiapine FUMARATE 100 MG TAB PO SCH ×2 (09:32→13:56)
--- NOTE | 2016-03-28 12:05 | HHI.PYPN ---
Subjective Remarks Patient seen and examined with counselor. Chart reviewed. Case discussed with nursing staff who reports patient is medication compliant but is still pain medication seeking. He has not had any temper tantrums over the weekend. On my examination today, patient complains of feeling "depressed. I just don't want to be here on earth. I'm constantly depressed. All I think about is wanting to kill myself." He does not describe any active urge to kill himself on the unit. 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 It's also worth noting that he does not appear particularly depressed when surreptitiously observed prior to interview. He also spends some time fixating on [id number] issues, hoping to prolong his stay. Denies side effects from medications. Reports he has a good prior response to Zyprexa. Review of Systems Other Chronic pain issues continue, although the patient does not spontaneously complain of these. No other physical complaints. Objective Alert: Yes [place]: Person, Place, Date Mood: Other (dysphoric) Affect: Restricted Memory Intact: Comment (intact) Hallucinations: Other (none) Delusions: No Delusion Type: Other (no delusions) Suicidal: Ideation (reports suicidal ideation without specific plan) Homicidal: Ideation (No HI) Insight/Judgement Fair at best Remarks Thought process linear. Speech within normal limits for rate, tone and volume. No motoric abnormalities noted. No signs of Serotonin syndrome. Labs Test 03/27/16 14:59 Sodium Level 137 MEQ/L Potassium Level 4.4 MEQ/L Chloride Level 101 MEQ/L Carbon Dioxide Level 31.5 MEQ/L Anion Gap 5 MEQ/L Blood Urea Nitrogen 15 MG/DL Creatinine 1.01 MG/DL Estimat Glomerular Filtration 83 ML/MIN Rate Random Glucose 115 MG/DL Calcium Level 9.2 MG/DL Labs reviewed. Vitals/IOs Vital Signs Date Time Temp Pulse Resp B/P Pulse Ox O2 Delivery O2 Flow Rate FiO2 03/28/16 06:02 98.3 103 18 125/69 99 Assessment & Plan Problem List: (1) Major depressive disorder, recurrent severe without psychotic features ICD Code: F33.2 (2) Chronic pain disorder ICD Code: G89.4 Assessment & Plan Continue to suspect degree of symptom exaggeration as patient's reported ongoing depressive symptoms seem intimately linked to his desire for disability. Zyprexa likely not the best option at this point despite reported good response as hospitalist notes mild transaminitis and recommends avoiding hepatotoxins and Zyprexa has been associated with hepatic dysfunction in cases. Also loath to titrate serotonergic antidepressant given risk for SS. I will gently titrate his Seroquel instead. Continue other medications and care as ordered. Justification for Cont. Inpt. Monitor for impairments in safety. Discharge Planning Pending psychiatric stabilization Request HC Surrog/Guard Advoc?: No Bj Romero MD Mar 28, 2016 12:05
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
[2016-03-28] MEDS: QUEtiapine FUMARATE 25 MG TAB PO SCH (17:24)
[2016-03-28] MEDS: QUEtiapine FUMARATE 300 MG TAB PO SCH (20:04)
[2016-03-28] MEDS: AMITRIPTYLINE HCL 50 MG TAB PO SCH (20:05)
[2016-03-28] MEDS: REMOVE OLD PATCH T-DERMAL SCH (20:05)
[2016-03-28] MEDS: REMOVE OLD NICOTINE PATCH T-DERMAL SCH (20:06)
[2016-03-28 21:55] VITALS: BP 130/76; PULSE 105; RESP 18; TEMP 98.5; O2SAT 96
[2016-03-29 05:11] VITALS: BP 106/55; PULSE 75; RESP 18; TEMP 97.5; O2SAT 96
[2016-03-29] MEDS: hydrOXYzine PAMOATE 25 MG CAP PO PRN ×3 (07:44→16:45)
[2016-03-29] MEDS: NICOTINE 21 MG/24 HR PATCH T-DERMAL SCH (09:00)
[2016-03-29] MEDS: POLYETHYLENE GLYCOL 17 GM PKG PO SCH (09:00)
[2016-03-29] MEDS: QUEtiapine FUMARATE 25 MG TAB PO SCH ×3 (09:00→16:45)
[2016-03-29] MEDS: LISINOPRIL 5 MG TAB PO SCH (09:43)
[2016-03-29] MEDS: GABAPENTIN 300 MG CAP PO SCH ×3 (09:44→18:00)
[2016-03-29] MEDS: FLUoxetine HCL 20 MG CAP PO SCH (09:44)
[2016-03-29] MEDS: DOCUSATE SODIUM 100 MG CAP PO SCH (09:44)
[2016-03-29] MEDS: LIDOCAINE HCL 5% PATCH TD SCH (09:45)
[2016-03-29] MEDS: traMADol HCL 50 MG TAB PO PRN (12:01)
[2016-03-29] MEDS ORDERED: Amitriptyline PO (12:17)
[2016-03-29] MEDS ORDERED: HYDR50CA PO (12:17)
[2016-03-29] MEDS ORDERED: QUET1TAB7 PO (12:17)
[2016-03-29] MEDS ORDERED: HYDR1CAP30 PO (12:17)
[2016-03-29] MEDS ORDERED: QUET1TAB10 PO (12:17)
[2016-03-29] MEDS ORDERED: DOCU1CAP39 PO (12:17)
[2016-03-29] MEDS ORDERED: LIDO5DIS35 TD (12:17)
[2016-03-29] MEDS ORDERED: NEUR300C PO (12:17)
[2016-03-29] MEDS ORDERED: FLUO20CA4 PO (12:17)
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
[2016-03-29] MEDS ORDERED: LISI-519 PO (15:35)
== END 2016-03-29 18:30 | disposition home or self-care (01) | DRG 885 ==
LOC: H260 11:00 → H270 16:53
PROVIDERS: ADMIT Psychiatry & Neurology Psychiatry; ATTEND Psychiatry & Neurology Psychiatry
DX: F33.2 Major depressive disorder, recurrent severe without psychotic features (principal); K50.90 Crohn's disease, unspecified, without complications; R45.851 Suicidal ideations; I10 Essential (primary) hypertension; G62.9 Polyneuropathy, unspecified; E87.5 Hyperkalemia; F60.2 Antisocial personality disorder; Z76.5 Malingerer [conscious simulation]; L90.5 Scar conditions and fibrosis of skin; G89.4 Chronic pain syndrome; R10.30 Lower abdominal pain, unspecified; K59.00 Constipation, unspecified; F41.9 Anxiety disorder, unspecified; F60.89 Other specific personality disorders; T43.591A Poisoning by other antipsychotics and neuroleptics, accidental (unintentional), initial encounter
CPT/HCPCS: 36600; 80048; 80053; 80061; 80307; 80320; 80329; 81001; 82728; 82805; 83036; 83540; 83550; 85025; 93005; 96360; G0378; G0480; J1200; J1630; J7030; J7042; Q0177

== ENCOUNTER 2016-05-07 00:27 | Inpatient (IN) | payer MEDICAID ==
[2016-05-07] VITALS (15 sets, daily range): BP systolic 77–153; BP diastolic 44–94; PULSE 79–104; RESP 14–25; TEMP 97.6–98.7; O2SAT 96–100
[~2016-05-07] VITALS: Ht 177.8 cm; Wt 108.3 kg
[~2016-05-07 00:27] MED LIST changes: -ALPR1TAB3 PO; -AMIT100T2 PO; +Amitriptyline PO; +DOCU1CAP39 PO; -GABA600T PO; +HYDR1CAP30 PO; +HYDR50CA PO; +LIDO5DIS35 TD; -PROZ40CA PO; +QUET1TAB7 PO; -QUET1TAB9 PO; -ULTR50TA5 PO; -VIST50CA PO; -XANA1TAB2 PO
[2016-05-07] MEDS ORDERED: SODIUM CHLOR 0.9% 1000 ML INJ 1,000 ML IV ONE ×2 (00:34)
[2016-05-07] MEDS ORDERED: SERO100T PO (00:44)
[2016-05-07] MEDS ORDERED: ACTIVATED CHARCOAL LIQUID 25 GM/120 ML BTL PO/NG ONE (01:00)
[2016-05-07 01:14] LABS: AUTOMATED NEUTROPHIL # 5.8 TH/MM3 (1.8-7.7); BASOPHIL % 0.4 % (0.0-2.0); EOSINOPHIL # 0.1 TH/MM3 (0-0.4); EOSINOPHIL % 0.6 % (0.0-4.0); HEMATOCRIT 35.9 % (39.0-51.0); HEMO FLAGS DIFF FINAL; LYMPH % 24.3 % (9.0-44.0); LYMPHOCYTE # 2.2 TH/MM3 (1.0-4.8); MEAN CELL VOLUME 89.3 FL (80.0-100.0); MEAN CORPUSCULAR HEMOGLOBIN 29.6 PG (27.0-34.0); MEAN CORPUSCULAR HGB CONC 33.2 % (32.0-36.0); MONO % 9.7 % (0.0-8.0); PLATELET COUNT 254 TH/MM3 (150-450); RED BLOOD COUNT 4.02 MIL/MM3 (4.50-5.90); RED CELL DISTRIBUTION WIDTH 14.8 % (11.6-17.2); WHITE BLOOD COUNT 8.9 TH/MM3 (4.0-11.0)
[2016-05-07] MEDS ORDERED: SODIUM BICARBONATE 8.4% INJ 50 MEQ/50 ML SYR IV PUSH ONE (01:15)
[2016-05-07 01:27] LABS: APTT (PATIENT) 24.5 SEC (24.3-30.1); PROTHROMBIN TIME - PATIENT 10.9 SEC (9.8-11.6)
[2016-05-07] MEDS: SODIUM BICARBONATE 8.4% INJ 150 MEQ in DEXTROSE 5% IN WATE 1000ML INJ 1,000 ML IV SCH ×4 (01:40→10:47)
[2016-05-07 01:44] LABS: ALKALINE PHOSPHATASE 68 U/L (45-117); ALT (GPT) 26 U/L (12-78); ANION GAP 11 MEQ/L (5-15); AST (GOT) 43 U/L (15-37); BICARBONATE 27.1 MEQ/L (21.0-32.0); BLOOD UREA NITROGEN 15 MG/DL (7-18); CHLORIDE 99 MEQ/L (98-107); CREATINE KINASE 270 U/L (39-308); GLOMERULAR FILTRATION RATE 37 ML/MIN (>89); MAGNESIUM 2.1 MG/DL (1.5-2.5); SODIUM (NA) 137 MEQ/L (136-145); TOTAL BILIRUBIN ADULT 0.4 MG/DL (0.2-1.0)
[2016-05-07 01:57] LABS: BLOOD GAS BASE EXCESS -1.2 mmol/L (-2-2); BLOOD GAS CARBOXYHEMOGLOBIN 1.9 % (0-4); BLOOD GAS HCO3 23 mmol/L (22-26); BLOOD GAS METHEMOGLOBIN 0.5 % (0-2); BLOOD GAS O2 HGB SATURATION 78 % (90-100); BLOOD GAS OXYGEN CONTENT 10.6 Vol % (12.0-20.0); BLOOD GAS PCO2 39 mmHg (38-42); BLOOD GAS TOTAL HGB 9.6 G/DL (12.0-16.0); CRITICAL VALUE YES; DRAW SITE RT RADIAL; FIO2 21 %; NUMBER OF ARTERIAL PUNCTURES 2; OXYGEN DEVICE RA; TEMP CORR TO 98.6
[2016-05-07 01:58] LABS: ULNAR PULSE PRESENT
[2016-05-07 01:59] LABS: BLOOD GAS PO2 47 mmHG (61-120)
[2016-05-07 02:00] LABS: STAT YES
--- NOTE | 2016-05-07 02:10 | RADRPT ---
EXAM DATE/TIME: 05/07/2016 00:50 [facility] COMPARISON: No previous studies available for comparison. INDICATIONS : Fever. MEDICAL HISTORY : None. SURGICAL HISTORY : None. ENCOUNTER: Initial ACUITY: 1 day PAIN SCORE: 0/10 LOCATION: Bilateral chest FINDINGS: A single view of the chest demonstrates the lungs to be symmetrically aerated without evidence of mas s, infiltrate or effusion. Minimal basilar atelectasis. The cardiomediastinal contours are unremarka ble. Osseous structures are intact. CONCLUSION: 1. Minimal basilar atelectasis. No focal consolidation or effusion. Agusto Cox MD on May 07, 2016 at 2:07 Board Certified Radiologist. This report was verified electronically.
[2016-05-07 02:28] LABS: POTASSIUM 4.9 MEQ/L (3.5-5.1)
[2016-05-07 02:51] LABS: LACTIC ACID GHOST NOT REPORTABLE
[2016-05-07 03:05] LABS: CKMB 1.1 NG/ML (0.5-3.6)
[2016-05-07 03:07] LABS: ACETAMINOPHEN LESS THAN 2.0 MCG/ML (10.0-30.0)
[2016-05-07 03:19] LABS: BLOOD, URINE NEG (NEG); COMMENT (UR) CATH-CULT NOT IND; CULTURE IF INDICATED CATH CULTURE NOT IND; GLUCOSE,URINE NEG (NEG); HYALINE CAST, URINE 4 /lpf (RARE); KETONE, URINE NEG (NEG); MUCUS URINE FEW /lpf (OCC); NITRITE,URINE NEG (NEG); PH, URINE 6.5 (5.0-8.5); URINE COLOR LIGHT-YELLOW (YELLW/STRAW)
[2016-05-07 03:24] LABS: AMPHETAMINE, URINE NEG (NEG); BARBITURATES, URINE NEG (NEG); COCAINE, URINE NEG (NEG)
[2016-05-07 03:43] LABS: BLOOD GAS CARBOXYHEMOGLOBIN 1.6 % (0-4); BLOOD GAS HCO3 28 mmol/L (22-26); BLOOD GAS METHEMOGLOBIN 0.8 % (0-2); BLOOD GAS O2 HGB SATURATION 97 % (90-100); BLOOD GAS OXYGEN CONTENT 14.5 Vol % (12.0-20.0); BLOOD GAS PCO2 46 mmHg (38-42); BLOOD GAS PO2 137 mmHG (61-120); BLOOD GAS TOTAL HGB 10.5 G/DL (12.0-16.0); TEMP CORR TO 98.6
[2016-05-07 03:44] LABS: CRITICAL VALUE NO; DRAW SITE RT RADIAL; LITER FLOW 3 L/M; NUMBER OF ARTERIAL PUNCTURES 1; OXYGEN DEVICE NASAL CANNULA; STAT NO; ULNAR PULSE PRESENT
--- NOTE | 2016-05-07 04:28 | PD ---
HPI Chief Complaint: Suicide Ideation/Attempt Time Seen by Provider: 00:34 Travel History International Travel<30 days: No Contact w/Intl Traveler<30days: No Traveled to known affect area: No History of Present Illness HPI 36-year-old male arrives from [facility] where was going to be admitted for suicidal statements. There he was hypotensive and therefore brought here. Here he denies intentional overdose however reports taking 600 mg Seroquel. EMS administered 1 L normal saline and the blood pressure improved to about 100 systolic and then decreased to the 70s again. The patient was DC'd from [facility] earlier today following admission for SI. No fever. No vomiting. No diarrhea. No chest pain shortness of breath. Pt arrives as BA 2/2 suicidal ideations d/w PD. PFSH Past Medical History Asthma: No Bipolar Disorder: Yes Anxiety: Yes Depression: Yes COPD: No Diminished Hearing: No Genitourinary: No Hypertension: Yes Musculoskeletal: Yes Psychiatric: Yes Reproductive: No Immunizations Current: Yes Past Surgical History Appendectomy: Yes Other Surgery: Yes (R LEG SX, APPY,) Social History Alcohol Use: Yes (OCASIONALLY) Tobacco Use: Yes Substance Use: No (denies) Allergies-Medications (Allergen,Severity, Reaction): Coded Allergies: No Known Allergies (Unverified , 03/21/16) Reported Meds & Prescriptions Reported Meds & Active Scripts Active Quetiapine (Quetiapine Fumarate) 25 Mg Tab 125 Mg PO DAILY@09,13,17 15 Days Quetiapine (Quetiapine Fumarate) 300 Mg Tab 600 Mg PO HS 15 Days Hydroxyzine Pamoate 25 Mg Cap 25 Mg PO Q4H PRN 15 Days Hydroxyzine Pamoate 50 Mg Cap 50 Mg PO HS 15 Days Neurontin (Gabapentin) 300 Mg Cap 1,200 Mg PO TID 15 Days [Amitriptyline] 50 MG Tab 150 Mg PO HS 15 Days Fluoxetine (Fluoxetine HCl) 20 Mg Cap 40 Mg PO DAILY 15 Days Lisinopril 5 Mg Tab 2.5 Mg PO DAILY 30 Days Reported Seroquel (Quetiapine Fumarate) 100 Mg Tab 100 Mg PO DAILY Review of Systems Except as stated in HPI: all other systems reviewed are Neg General / Constitutional: No: Fever, Chills Gastrointestinal: Positive: Abdominal Pain Psychiatric: Positive: Suicidal Ideations Physical Exam Narrative GENERAL: 36-year-old male mild distress secondary to pain and/or anxiety SKIN: Warm and dry. HEAD: Atraumatic. Normocephalic. EYES: Pupils equal and round. No scleral icterus. No injection or drainage. ENT: No nasal bleeding or discharge. Mucous membranes pink and moist. NECK: Trachea midline. No JVD. CARDIOVASCULAR: Regular rate and rhythm. No murmur appreciated. RESPIRATORY: No accessory muscle use. Clear to auscultation. Breath sounds equal bilaterally. GASTROINTESTINAL: Soft. Minimal generalized tenderness. MUSCULOSKELETAL: No obvious deformities. No clubbing. No cyanosis. No edema. NEUROLOGICAL: Awake and alert. No obvious cranial nerve deficits. Motor grossly within normal limits. Normal speech. PSYCHIATRIC: Appropriate mood and affect; insight and judgment normal. Data Data Last Documented VS Vital Signs Date Time Temp Pulse Resp B/P Pulse Ox O2 Delivery O2 Flow Rate FiO2 05/07/16 04:00 98 16 123/73 99 Nasal Cannula 2 05/07/16 00:32 98.7 Orders Electrocardiogram (05/07/16 00:34) Complete Blood Count With Diff (05/07/16 00:34) Comprehensive Metabolic Panel (05/07/16 00:34) Prothrombin Time / Inr (Pt) (05/07/16 00:34) Act Partial Throm Time (Ptt) (05/07/16 00:34) Lactic Acid Sepsis Protocol (05/07/16 00:34) Magnesium (Mg) (05/07/16 00:34) Lipase (05/07/16 00:34) Ckmb (Isoenzyme) Profile (05/07/16 00:34) Troponin I (05/07/16 00:34) Urinalysis - C+S If Indicated (05/07/16 00:34) Ua Includes Microscopic (05/07/16 00:34) Blood Culture (05/07/16 00:34) Chest, Single Ap (05/07/16 00:34) Arterial Blood Gas (Abg) (05/07/16 00:34) Blood Glucose (05/07/16 00:34) Ecg Monitoring (05/07/16 00:34) Iv Access Insert/Monitor (05/07/16 00:34) Oximetry (05/07/16 00:34) Oxygen Administration (05/07/16 00:34) Sodium Chlor 0.9% 1000 Ml Inj (Ns 1000 M (05/07/16 00:34) Sodium Chlor 0.9% 1000 Ml Inj (Ns 1000 M (05/07/16 00:34) Charcoal Activated Liq (Actidose-Aqua Li (05/07/16 01:00) Sodium Bicarbonate 8.4% Inj (Sodium Bica (05/07/16 01:15) Dextrose 5% In Wate... W/Sodium Bicarbon (05/07/16 01:15) Drug Screen, Random Urine (05/07/16 01:43) Alcohol (Ethanol) (05/07/16 01:43) Salicylates (Aspirin) (05/07/16 01:43) Tylenol (Acetaminophen) (05/07/16 01:43) CKMB (05/07/16 00:43) CKMB% (05/07/16 00:43) Ct Abd/Pel W/O Iv Contrast (05/07/16 00:34) Arterial Blood Gas (Abg) (05/07/16 ) Electrocardiogram (05/07/16 ) Ceftriaxone Inj (Rocephin Inj) (05/07/16 04:45) Azithromycin Inj (Zithromax Inj) (05/07/16 04:45) Admit Order (Ed Use Only) (05/07/16 05:34) Ceftriaxone Inj (Rocephin Inj) (05/08/16 06:00) Azithromycin Inj (Zithromax Inj) (05/08/16 06:00) Albuterol-Ipratropium Neb (Duoneb Neb) (05/07/16 05:45) Consult Psychiatry (05/07/16 ) Lactic Acid (05/07/16 09:00) ^ Initiate Protocol (05/07/16 05:34) ^ Instruction (05/07/16 05:34) [facility] Nursing Information (05/07/16 05:45) Chlorhexidine 2% Cloth (Chlorhexidine 2% (05/08/16 04:00) Chlorhexidine 2% Cloth (Chlorhexidine 2% (05/07/16 05:45) Mrsa Pcr Surveillance (05/07/16 05:34) Admit To Inpatient (05/07/16 ) Vital Signs (Adult) Q4H (05/07/16 05:34) Activity Oob With Assistance (05/07/16 05:34) Home Hospice Rn / Telemetry .CONTINUOUS (05/07/16 05:34) Intake + Output MARGAUX.QSHIFT (05/07/16 05:34) Diet Regular Basic (05/07/16 Breakfast) Sodium Chlor 0.9% 1000 Ml Inj (Ns 1000 M (05/07/16 05:34) Sodium Chloride 0.9% Flush (Ns Flush) (05/07/16 05:45) Sodium Chloride 0.9% Flush (Ns Flush) (05/07/16 09:00) Bisacodyl Supp (Dulcolax Supp) (05/07/16 05:45) Comprehensive Metabolic Panel (05/08/16 06:00) Complete Blood Count With Diff (05/08/16 06:00) Scd Bilateral/Knee High MARGAUX.BID (05/07/16 05:34) Don Bilateral/Knee High MARGAUX.QSHIFT (05/07/16 05:34) Inpatient Certification (05/07/16 ) Labs Laboratory Tests Test 05/07/16 05/07/16 05/07/16 05/07/16 00:43 01:14 01:45 02:55 White Blood Count 8.9 TH/MM3 Red Blood Count 4.02 MIL/MM3 Hemoglobin 11.9 GM/DL Hematocrit 35.9 % Mean Corpuscular Volume 89.3 FL Mean Corpuscular Hemoglobin 29.6 PG Mean Corpuscular Hemoglobin 33.2 % Concent Red Cell Distribution Width 14.8 % Platelet Count 254 TH/MM3 Mean Platelet Volume 7.6 FL Neutrophils (%) (Auto) 65.0 % Lymphocytes (%) (Auto) 24.3 % Monocytes (%) (Auto) 9.7 % Eosinophils (%) (Auto) 0.6 % Basophils (%) (Auto) 0.4 % Neutrophils # (Auto) 5.8 TH/MM3 Lymphocytes # (Auto) 2.2 TH/MM3 Monocytes # (Auto) 0.9 TH/MM3 Eosinophils # (Auto) 0.1 TH/MM3 Basophils # (Auto) 0.0 TH/MM3 CBC Comment DIFF FINAL Differential Comment Prothrombin Time 10.9 SEC Prothromb Time International 1.0 RATIO Ratio Activated Partial 24.5 SEC Thromboplast Time Sodium Level 137 MEQ/L Potassium Level 4.9 MEQ/L Chloride Level 99 MEQ/L Carbon Dioxide Level 27.1 MEQ/L Anion Gap 11 MEQ/L Blood Urea Nitrogen 15 MG/DL Creatinine 2.03 MG/DL Estimat Glomerular Filtration 37 ML/MIN Rate Random Glucose 104 MG/DL Lactic Acid Level 2.5 mmol/L Calcium Level 8.0 MG/DL Magnesium Level 2.1 MG/DL Total Bilirubin 0.4 MG/DL Aspartate Amino Transf 43 U/L (AST/SGOT) Alanine Aminotransferase 26 U/L (ALT/SGPT) Alkaline Phosphatase 68 U/L Total Creatine Kinase 270 U/L Creatine Kinase MB 1.1 NG/ML Troponin I LESS THAN 0.02 NG/ML Total Protein 7.3 GM/DL Albumin 3.5 GM/DL Lipase 82 U/L Acetaminophen Level LESS THAN 2.0 MCG/ML Ethyl Alcohol Level 94 MG/DL Blood Gas Puncture Site RT RADIAL Blood Gas Patient Temperature 98.6 Blood Gas HCO3 23 mmol/L Blood Gas Base Excess -1.2 mmol/L Blood Gas Oxygen Saturation 78 % Arterial Blood pH 7.39 Arterial Blood Partial 39 mmHg Pressure CO2 Arterial Blood Partial 47 mmHG Pressure O2 Arterial Blood Oxygen Content 10.6 Vol % Arterial Blood 1.9 % Carboxyhemoglobin Arterial Blood Methemoglobin 0.5 % Blood Gas Hemoglobin 9.6 G/DL Oxygen Delivery Device RA Blood Gas Inspired Oxygen 21 % Salicylates Level LESS THAN 1.7 MG/DL Urine Color LIGHT-YELLOW Urine Turbidity CLEAR Urine pH 6.5 Urine Specific [place] 1.010 Urine Protein TRACE mg/dL Urine Glucose (UA) NEG mg/dL Urine Ketones NEG mg/dL Urine Occult Blood NEG Urine Nitrite NEG Urine Bilirubin NEG Urine Urobilinogen LESS THAN 2.0 MG/DL Urine Leukocyte Esterase NEG Urine RBC LESS THAN 1 /hpf Urine WBC 2 /hpf Urine Hyaline Casts 4 /lpf Urine Mucus FEW /lpf Microscopic Urinalysis Comment CATH-CULT NOT IND Urine Opiates Screen NEG Urine Barbiturates Screen NEG Urine Amphetamines Screen NEG Urine Benzodiazepines Screen NEG Urine Cocaine Screen NEG Urine Cannabinoids Screen NEG Test 05/07/16 05/07/16 03:11 03:32 Lactic Acid Level 2.1 mmol/L Blood Gas Puncture Site RT RADIAL Blood Gas Patient Temperature 98.6 Blood Gas HCO3 28 mmol/L Blood Gas Base Excess 4.0 mmol/L Blood Gas Oxygen Saturation 97 % Arterial Blood pH 7.41 Arterial Blood Partial 46 mmHg Pressure CO2 Arterial Blood Partial 137 mmHG Pressure O2 Arterial Blood Oxygen Content 14.5 Vol % Arterial Blood 1.6 % Carboxyhemoglobin Arterial Blood Methemoglobin 0.8 % Blood Gas Hemoglobin 10.5 G/DL Oxygen Delivery Device NASAL CANNULA Blood Gas Liter Flow 3 L/M MDM Medical Decision Making Medical Screen Exam Complete: Yes Emergency Medical Condition: Yes Medical Record Reviewed: Yes Differential Diagnosis Constipation, Gastritis, Acute Cholecystitis, Biliary Colic, Pancreatitis, RAMOS , Hepatitis, Bowel Obstruction, Cystitis, Mesenteric Ischemia, AAA, Appendicitis , Renal Stone/Hydronephrosis, GERD, perforated viscous Narrative Course CBC & BMP Diagram 05/07/16 00:43 Renal function from about 6 weeks ago reveals a creatinine of 1.0. GFR of 83 with a BUN of 15 LFTs normal Lipase 82 Tn < 0.02 EKG: rate 99, QRS 126, normal axis/intervals Lactic acid 2.5 repeat 2.1 Last Impressions Chest X-Ray 05/07/1633 Signed Impressions: Service Date/Time: Saturday, May 07, 2016 00:50 - CONCLUSION: 1. Minimal basilar atelectasis. No focal consolidation or effusion. Agusto Cox MD Abdomen/Pelvis CT 05/07/1633 Signed Impressions: Service Date/Time: Saturday, May 07, 2016 03:53 - CONCLUSION: 1. No acute findings identified within the abdomen and pelvis. Mild right-sided constipation. Basilar and dependent airspace disease in the lungs. Agusto Cox MD Patient will be admitted to the hospitalist service. He is currently on a bicarbonate drip and will require ICU admission. Discussed with the thoracic medicine specialist service as well. His blood pressure has improved gradually and at time of admission is 125/80. Heart rate has been about 90-100 bpm. He has been sleeping throughout much of his ER course. Zosyn started. Blood cultures drawn. Critical Care Narrative Aggregate critical care time was 35 minutes. Time to perform other separately billable procedures was not included in the critical care time. My time did not include minutes spent treating any other patients simultaneously or on activities that did not directly contribute to the patient's treatment. The services I provided to this patient were to treat and/or prevent clinically significant deterioration that could result in: Cardiopulmonary arrest, dysrhythmia I provided critical care services requiring my management, as noted below: Chart data review, documentation time, medication orders and management, vital sign assessments/reviewing monitor data, ordering and reviewing lab tests, ordering and interpreting/reviewing x-rays and diagnostic studies, care of the patient and discussion of the patient with the admitting physicians. Diagnosis Primary Impression: Overdose Qualified Code: T50.904A - Overdose, undetermined intent, initial encounter Additional Impressions: Hypotension Qualified Code: I95.9 - Hypotension, unspecified hypotension type BROOKS (acute kidney injury) Alcohol intoxication Qualified Code: F10.129 - Alcohol intoxication, with unspecified complication Admitting Information Admitting Physician Requests: Admit Finn Monterroso MD May 07, 2016 04:28
--- NOTE | 2016-05-07 04:35 | RADRPT ---
EXAM DATE/TIME: 05/07/2016 03:53 [facility] COMPARISON: No previous studies available for comparison. INDICATIONS : Abdominal pain. ORAL CONTRAST: No oral contrast ingested. RADIATION DOSE: 10.83 CTDIvol (mGy) MEDICAL HISTORY : Hypertension. SURGICAL HISTORY : Appendectomy. ENCOUNTER: Initial ACUITY: 1 day PAIN SCALE: 5/10 LOCATION: abdomen TECHNIQUE: Volumetric scanning of the abdomen and pelvis was performed. Using automated exposure control and ad justment of the mA and/or kV according to patient size, radiation dose was kept as low as reasonably achievable to obtain optimal diagnostic quality images. FINDINGS: There is basilar and dependent atelectasis in the lungs. No acute findings in the liver, spleen, adrenals, kidneys or pancreas. No calcified gallstones or [place] ductal dilatation. No free fluid. No bowel obstruction. No adenopathy. There is some herniation of fat into the inguinal canals bilaterally. CONCLUSION: 1. No acute findings identified within the abdomen and pelvis. Mild right-sided constipation. Basilar and dependent airspace disease in the lungs. Agusto Cox MD on May 07, 2016 at 4:30 Board Certified Radiologist. This report was verified electronically.
[2016-05-07] MEDS ORDERED: cefTRIAXone INJ 1,000 MG in SODIUM CHLORIDE 0.9% INJ 100 ML IV ONE (04:45)
[2016-05-07] MEDS ORDERED: AZITHROMYCIN INJ 500 MG in SODIUM CHLOR 0.9% 250 ML INJ 250 ML IV ONE (04:45)
[2016-05-07] MEDS ORDERED: MISCELLANEOUS NURSING INFORMATION XX SCH (05:45)
[2016-05-07] MEDS ORDERED: RESP: ALBUTEROL 2.5 MG/IPRATROPIUM 0.5 MG NEB (PRN) NEB (05:45)
[2016-05-07] MEDS ORDERED: CHLORHEXIDINE GLUCONATE 2 % 1 PACK (2 CLOTHS) TOP PRN (05:45)
[2016-05-07] MEDS ORDERED: BISACODYL 10 MG SUPP PR PRN (05:45)
[2016-05-07] MEDS ORDERED: SODIUM CHLORIDE 0.9% FLUSH 5 ML FLUSH FLUSH PRN (05:45)
[2016-05-07] MEDS: SODIUM CHLOR 0.9% 1000 ML INJ 1,000 ML IV SCH ×3 (06:51→19:29)
--- NOTE | 2016-05-07 09:26 | EKG ---
Date Performed: 05/07/2016 Time Performed: 01:48:34 PTAGE: 36 years EKG: Sinus rhythm . MODERATE INTRAVENTRICULAR CONDUCTION DELAY NONSPECIFIC T-WAVE ABNORMALITY BORDERLINE ECG Compared to prior electrocardiogram,Limb lead voltage has mildly decreased. PREVIOUS TRACING : 05/06/2016 22.35 DOCTOR: Mychal Mcneill Interpretating Date/Time 05/07/2016 09:26:19
--- NOTE | 2016-05-07 09:31 | EKG ---
Date Performed: 05/06/2016 Time Performed: 22:35:21 PTAGE: 36 years EKG: Sinus rhythm MODERATE INTRAVENTRICULAR CONDUCTION DELAY BORDERLINE ECG No significant change from prior electroca rdiogram. PREVIOUS TRACING : 03/21/2016 15.35 DOCTOR: Mychal Mcneill Interpretating Date/Time 05/07/2016 09:30:34
[2016-05-07] MEDS: SODIUM CHLORIDE 0.9% FLUSH 5 ML FLUSH FLUSH SCH ×2 (10:47→19:29)
[2016-05-07] MEDS ORDERED: LORazepam 2 MG TAB PO PRN (14:00)
[2016-05-07] MEDS ORDERED: LORazepam 1 MG TAB PO PRN (14:00)
[2016-05-07] MEDS: THIAMINE HCL 100 MG TAB PO SCH (14:00)
[2016-05-07] MEDS ORDERED: FLUMAZENIL 0.5 MG/5 ML VIAL IV PUSH PRN (14:00)
[2016-05-07] MEDS ORDERED: LORazepam 2 MG/ML VIAL IV PUSH PRN ×3 (14:00)
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
[2016-05-07] MEDS ORDERED: ACETAMINOPHEN 325 MG TAB PO PRN (14:15)
[2016-05-07] MEDS ORDERED: ENALAPRILAT 1.25 MG/ML VIAL IV PUSH PRN (14:15)
[2016-05-07] MEDS: MULTIVITAMIN TAB PO SCH (15:00)
[2016-05-07] MEDS: SENNOSIDES 8.6 MG TAB PO SCH (15:00)
[2016-05-07] MEDS: FOLIC ACID 1 MG TAB PO SCH (15:01)
--- NOTE | 2016-05-07 15:07 | PD.CONS ---
Provisional Diagnosis Admission Date May 07, 2016 at 05:37 [place]. Adjustment disorder with mixed disturbance of emotion and conduct History of Present Illness Service Psychiatry Consult Requested By Primary Care Physician No Primary Care Physician HPI Released from [facility] [employer] [facility] yesterday. Overdosed on Elavil. Continues to be suicidal. Review of Systems ROS Limitations: Clinical Condition Except as stated in HPI: all other systems reviewed are Neg Past Family Social History Coded Allergies: No Known Allergies (Unverified , 03/21/16) Active Scripts Quetiapine 25 Mg [id number] Mg PO DAILY@,,17 15 Days Ref 1 Prov:Bj Rmoero MD 03/29/16 Quetiapine 300 Mg [id number] Mg PO HS 15 Days Ref 1 Prov:Bj Romero MD 03/29/16 Hydroxyzine Pamoate 25 Mg Cap25 Mg PO Q4H PRN (ANXIETY) 15 Days Ref 1 Prov:Bj Romero MD 03/29/16 Hydroxyzine Pamoate 50 Mg Cap50 Mg PO HS 15 Days Ref 1 Prov:Bj Romero MD 03/29/16 Gabapentin (Neurontin)300 Mg Cap1,200 Mg PO TID 15 Days Ref 1 Prov:Bj Romero MD 03/29/16 [Amitriptyline Hcl] (Elavil)50 MG TAB No Conflict [id number] Mg PO HS 15 Days Ref 1 Prov:Bj Romero MD 03/29/16 Fluoxetine 20 Mg Cap40 Mg PO DAILY 15 Days Ref 1 Prov:Bj Romero MD 03/29/16 Lisinopril 5 Mg Tab2.5 Mg PO DAILY 30 Days Prov:Brii Fernandez MD 03/23/16 Reported Medications Quetiapine (Seroquel)100 Mg [id number] Mg PO DAILY #30 TAB Ref 0 05/07/16 Discontinued Scripts Lisinopril 5 Mg Tab2.5 Mg PO DAILY 30 Days Ref 0 Prov:Gloria Rocha 03/29/16 Lidocaine Patch 12 HR (Lidoderm Patch 12 HR)5% Patch1 Patch TD DAILY 15 Days Ref 1 Apply to intact skin on right leg. Remove daily and do not apply more than 1 patch at a time. Remove and contact your doctor if you have any skin irritation or other side effects. Prov:Bj Romero MD 03/29/16 Docusate Sodium (Dok)100 Mg [id number] Mg PO BID 15 Days Ref 1 Prov:Bj Romero MD 03/29/16 Current Medications Medications (Trade) Dose Ordered Sig/Brenda Route Start Time Stop Time Status Last Admin Miscellaneous Information 1 Q361D XX 05/07/16 05:45 05/07/16 07:30 (Chlorhexidine 2% Cloth) 3 pack Taper DAILY@04 TOP 05/08/16 04:00 05/04/17 03:59 Chlorhexidine Gluconate 3 pack 3 pack UNSCH PRN TOP 05/07/16 05:45 (NS 1000 ml Inj) 1,000 ml @ 100 mls/hr Q10H IV 05/07/16 05:34 05/07/16 06:51 (NS Flush) 2 ml UNSCH PRN FLUSH 05/07/16 05:45 (NS Flush) 2 ml BID FLUSH 05/07/16 09:00 05/07/16 10:47 (Dulcolax Supp) 10 mg DAILY PRN MT 05/07/16 05:45 (Romazicon Inj) 0.2 mg Q1M PRN IV PUSH 05/07/16 14:00 (Ativan) 1 mg Q4H PRN PO 05/07/16 14:00 (Ativan Inj) 1 mg Q4H PRN IV PUSH 05/07/16 14:00 (Ativan) 2 mg Q2H PRN PO 05/07/16 14:00 (Ativan Inj) 2 mg Q2H PRN IV PUSH 05/07/16 14:00 (Ativan Inj) 2 mg Q1H PRN IV PUSH 05/07/16 14:00 (Ativan Inj) 2 mg Q15M PRN IV PUSH 05/07/16 14:00 (Vitamin B1) 100 mg DAILY PO 05/07/16 14:00 05/07/16 14:00 (Theragran) 1 tab DAILY PO 05/07/16 14:00 05/07/16 15:00 (Folate) 1 mg DAILY PO 05/07/16 14:00 05/07/16 15:01 (Vasotec Inj) 1.25 mg Q6H PRN IV PUSH 05/07/16 14:15 (Tylenol) 650 mg Q4H PRN PO 05/07/16 14:15 05/07/16 15:00 (Colace) 100 mg BID PO 05/07/16 21:00 (Senokot) 17.2 mg DAILY PO 05/07/16 14:45 05/07/16 15:00 Family History Denied Social History Alcoholic. Unemployed. Limited support system. Patient's Strengths (min. 2) Verbal and resilient. Physical Exam Deferred to physical medicine. Vital Signs Vital Signs Date Time Temp Pulse Resp B/P Pulse Ox O2 Delivery O2 Flow Rate FiO2 05/07/16 12:00 98.3 79 19 139/87 100 05/07/16 04:00 Nasal Cannula 2 Mental Status Examination Speech: Unremarkable Orientation: x3 Memory: Unremarkable Thought Process: Organized, Goal Directed Thought Content: Unremarkable Hallucination Type: None Attention and Concentration: Good Suicidal Ideation: Yes Previous Suicide Attempts: No Suicidal Plan Remarks Continues to be actively suicidal. Homicidal Ideation: No Previous Homicide Attempts: No Insight: Fair, Poor Judgement: Unrealistic Affect: Sad Mood: Appropriate Motor Activity: Normal gait Assessment & Plan Problem List: (1) Adjustment disorder with mixed disturbance of emotions and conduct ICD Code: F43.25 Assessment & Plan Estimated LOS: days plan to admit to psychiatry. Vasu Dee MD May 07, 2016 15:07
[2016-05-07 17:13] LABS: BICARBONATE 27.4 MEQ/L (21.0-32.0); POTASSIUM 4.1 MEQ/L (3.5-5.1)
[2016-05-07] MEDS: DOCUSATE SODIUM 100 MG CAP PO SCH (19:29)
[2016-05-07] MEDS: LORazepam 2 MG/ML VIAL IV PUSH PRN (19:30)
[2016-05-07] MEDS ORDERED: ACETAMINOPHEN/HYDROcodone 325 MG/5 MG TAB PO ONE (22:15)
[2016-05-08] VITALS (9 sets, daily range): BP systolic 110–134; BP diastolic 73–92; PULSE 74–89; RESP 12–19; TEMP 98.3–98.7; O2SAT 95–97
[2016-05-08] MEDS ORDERED: CHLORHEXIDINE GLUCONATE 2 % 1 PACK (2 CLOTHS) TOP SCH (04:00)
[2016-05-08 05:59] LABS: AUTOMATED NEUTROPHIL # 2.1 TH/MM3 (1.8-7.7); BASOPHIL % 0.5 % (0.0-2.0); EOSINOPHIL # 0.2 TH/MM3 (0-0.4); EOSINOPHIL % 4.8 % (0.0-4.0); HEMATOCRIT 34.4 % (39.0-51.0); HEMO FLAGS DIFF FINAL; LYMPH % 39.9 % (9.0-44.0); LYMPHOCYTE # 1.9 TH/MM3 (1.0-4.8); MEAN CELL VOLUME 89.5 FL (80.0-100.0); MEAN CORPUSCULAR HEMOGLOBIN 29.8 PG (27.0-34.0); MEAN CORPUSCULAR HGB CONC 33.4 % (32.0-36.0); MONO % 11.2 % (0.0-8.0); NEUT % 43.6 % (16.0-70.0); PLATELET COUNT 205 TH/MM3 (150-450); RED BLOOD COUNT 3.85 MIL/MM3 (4.50-5.90); RED CELL DISTRIBUTION WIDTH 14.4 % (11.6-17.2); WHITE BLOOD COUNT 4.7 TH/MM3 (4.0-11.0)
[2016-05-08] MEDS ORDERED: cefTRIAXone INJ 1,000 MG in SODIUM CHLORIDE 0.9% INJ 100 ML IV SCH (06:00)
[2016-05-08] MEDS ORDERED: AZITHROMYCIN INJ 500 MG in SODIUM CHLOR 0.9% 250 ML INJ 250 ML IV SCH (06:00)
[2016-05-08 07:03] LABS: ALKALINE PHOSPHATASE 65 U/L (45-117); ALT (GPT) 17 U/L (12-78); ANION GAP 8 MEQ/L (5-15); AST (GOT) 12 U/L (15-37); BICARBONATE 24.5 MEQ/L (21.0-32.0); BLOOD UREA NITROGEN 6 MG/DL (7-18); CHLORIDE 106 MEQ/L (98-107); GLOMERULAR FILTRATION RATE 115 ML/MIN (>89); POTASSIUM 4.4 MEQ/L (3.5-5.1); SODIUM (NA) 138 MEQ/L (136-145); TOTAL BILIRUBIN ADULT 0.5 MG/DL (0.2-1.0)
[2016-05-08] MEDS: SODIUM CHLORIDE 0.9% FLUSH 5 ML FLUSH FLUSH SCH (09:00)
--- NOTE | 2016-05-08 09:58 | HHI.DCPOC ---
Discharge Care Plan Diagnosis: (1) Adjustment disorder with mixed disturbance of emotions and conduct (2) BROOKS (acute kidney injury) (3) Major depression, recurrent (4) Suicidal ideation (5) Hypotension (6) Alcohol intoxication Goals to Promote Your Health * To prevent worsening of your condition and complications * To maintain your health at the optimal level Directions to Meet Your Goals Take your medications as prescribed Follow your dietary instruction Follow activity as directed Keep your appointments as scheduled Take your immunizations and boosters as scheduled If your symptoms worsen call your PCP, if no PCP go to Urgent Care Center or Emergency Room Smoking is Dangerous to Your Health. Avoid second hand smoke Call the 24-hour hour crisis hotline for domestic abuse at Javier Bustillos DO May 08, 2016 09:58
--- NOTE | 2016-05-08 10:06 | HHI.PR ---
Subjective Remarks The pt was resting in bed comfortably. No acute complaints other than chronic pain. Discussed with nursing. Objective Vitals Vital Signs Date Time Temp Pulse Resp B/P Pulse Ox O2 Delivery O2 Flow Rate FiO2 05/08/16 06:00 76 05/08/16 04:00 98.7 89 19 134/92 96 05/08/16 04:00 89 05/08/16 02:00 83 05/08/16 00:00 84 05/08/16 00:00 98.6 84 16 131/78 97 05/07/16 22:00 97 05/07/16 20:00 84 05/07/16 20:00 98.6 84 23 153/94 100 05/07/16 18:00 84 05/07/16 16:00 85 05/07/16 16:00 98.0 85 25 129/73 100 05/07/16 14:00 95 05/07/16 12:00 98.3 79 19 139/87 100 05/07/16 12:00 79 I/O 05/07/16 05/07/16 05/07/16 05/08/16 05/08/16 05/08/16 07:00 15:00 23:00 07:00 15:00 23:00 Intake Total 2641 ml 780 ml Output Total 1475 ml 2450 ml 2150 ml Balance 1166 ml -1670 ml -2150 ml Intake Oral 180 ml 240 ml IV Total 2461 ml 540 ml Output Urine Total 1475 ml 2450 ml 2150 ml # Voids 2 3 # Bowel Movements 0 0 Result Diagram: 05/08/16 0527 05/08/16526 Imaging Last Impressions Chest X-Ray 05/07/1633 Signed Impressions: Service Date/Time: Saturday, May 07, 2016 00:50 - CONCLUSION: 1. Minimal basilar atelectasis. No focal consolidation or effusion. Agusto Cox MD Abdomen/Pelvis CT 05/07/1633 Signed Impressions: Service Date/Time: Saturday, May 07, 2016 03:53 - CONCLUSION: 1. No acute findings identified within the abdomen and pelvis. Mild right-sided constipation. Basilar and dependent airspace disease in the lungs. Agusto Cox MD Objective Remarks GENERAL: Resting comfortably in bed. SKIN: Warm and dry. HEAD: Atraumatic. Normocephalic. EYES: Pupils equal and round. No scleral icterus. No injection or drainage. ENT: No nasal bleeding or discharge. Mucous membranes pink and moist. NECK: Trachea midline. No JVD. CARDIOVASCULAR: Regular rate and rhythm. No murmur appreciated. RESPIRATORY: No accessory muscle use. Clear to auscultation. Breath sounds equal bilaterally. GASTROINTESTINAL: Soft. Mild generalized tenderness. MUSCULOSKELETAL: No obvious deformities. No clubbing. No cyanosis. Trace edema in the left lower extremity, 1+ edema in the right lower extremity. NEUROLOGICAL: Awake and alert. No obvious cranial nerve deficits. Motor grossly within normal limits. Normal speech. PSYCHIATRIC: Flattened affect. Medications and IVs Current Medications Medications (Trade) Dose Ordered Sig/Brenda Route Start Time Stop Time Status Last Admin Miscellaneous Information 1 Q361D XX 05/07/16 05:45 05/07/16 07:30 (Chlorhexidine 2% Cloth) 3 pack Taper DAILY@04 TOP 05/08/16 04:00 05/04/17 03:59 Chlorhexidine Gluconate 3 pack 3 pack UNSCH PRN TOP 05/07/16 05:45 (NS 1000 ml Inj) 1,000 ml @ 100 mls/hr Q10H IV 05/07/16 05:34 05/07/16 19:29 (NS Flush) 2 ml UNSCH PRN FLUSH 05/07/16 05:45 (NS Flush) 2 ml BID FLUSH 05/07/16 09:00 05/07/16 19:29 (Dulcolax Supp) 10 mg DAILY PRN MT 05/07/16 05:45 (Romazicon Inj) 0.2 mg Q1M PRN IV PUSH 05/07/16 14:00 (Ativan) 1 mg Q4H PRN PO 05/07/16 14:00 (Ativan Inj) 1 mg Q4H PRN IV PUSH 05/07/16 14:00 (Ativan) 2 mg Q2H PRN PO 05/07/16 14:00 05/07/16 23:30 (Ativan Inj) 2 mg Q2H PRN IV PUSH 05/07/16 14:00 05/07/16 19:30 (Ativan Inj) 2 mg Q1H PRN IV PUSH 05/07/16 14:00 (Ativan Inj) 2 mg Q15M PRN IV PUSH 05/07/16 14:00 (Vitamin B1) 100 mg DAILY PO 05/07/16 14:00 05/07/16 14:00 (Theragran) 1 tab DAILY PO 05/07/16 14:00 05/07/16 15:00 (Folate) 1 mg DAILY PO 05/07/16 14:00 05/07/16 15:01 (Vasotec Inj) 1.25 mg Q6H PRN IV PUSH 05/07/16 14:15 (Tylenol) 650 mg Q4H PRN PO 05/07/16 14:15 05/07/16 15:00 (Colace) 100 mg BID PO 05/07/16 21:00 (Senokot) 17.2 mg DAILY PO 05/07/16 14:45 05/07/16 15:00 A/P Problem List: (1) BROOKS (acute kidney injury) ICD Code: N17.9 Status: Acute (2) Hypotension ICD Code: I95.9 Status: Acute (3) Overdose ICD Code: T50.901A Status: Acute (4) Alcohol intoxication ICD Code: F10.129 Status: Acute (5) Abdominal pain ICD Code: R10.9 Status: Chronic (6) Major depression, recurrent ICD Code: F33.9 Status: Acute (7) Suicidal ideation ICD Code: R45.851 Status: Acute Assessment and Plan Hypotension The pt was transferred from [facility] s/t low blood pressure. He has a history of Seroquel overdose and there is concern he did overdose again. Blood pressure improved with fluids. He initially had a lactic acidosis but that resolved. EKG with mild intraventricular conduction delay, which is old. - continue to monitor on telemetry. - continue normal saline. - hold home medications including ACEi and psych meds. - follow blood cultures. NGTD. Suicidal ideation The pt says he has a history of severe depression. He said he tried to throw himself in front of traffic a few days before. He was recently admitted to the psych unit here. Concern for overdose as above. - Transfer to psychiatry. - hold home psych meds for now. Acute renal failure Unsure of etiology, may be s/t hypotension or from overdose. Resolved with fluids. - continue IVFs. - hold home meds including ACEi and Neurontin. Alcohol abuse The pt's alcohol level was elevated. He says he gets drunk whenever he can afford it. - neuro checks, seizure precautions. - CICA protocol. - cessation instruction. Abdominal pain Generalized on exam. LFTs and CT abdomen unremarkable. - bowel regimen. - serial abdominal exams. PPx: SCDs. Discharge Planning Transfer to psychiatry. Problem Qualifiers (1) Hypotension: Qualified Code: I95.9 - Hypotension, unspecified hypotension type (2) Overdose: Qualified Code: T50.904A - Overdose, undetermined intent, initial encounter (3) Alcohol intoxication: Qualified Code: F10.129 - Alcohol intoxication, with unspecified complication Javier Bustillos DO May 08, 2016 10:06
[2016-05-08] MEDS: MULTIVITAMIN TAB PO SCH (10:40)
[2016-05-08] MEDS: DOCUSATE SODIUM 100 MG CAP PO SCH (10:40)
[2016-05-08] MEDS: FOLIC ACID 1 MG TAB PO SCH (10:40)
[2016-05-08] MEDS: THIAMINE HCL 100 MG TAB PO SCH (10:40)
[2016-05-08] MEDS: SENNOSIDES 8.6 MG TAB PO SCH (10:40)
[2016-05-08] MEDS: LORazepam 2 MG/ML VIAL IV PUSH PRN ×2 (10:46→16:18)
[2016-05-08] MEDS: SODIUM CHLOR 0.9% 1000 ML INJ 1,000 ML IV SCH (11:34)
--- NOTE | 2016-05-09 15:03 | EKG ---
Date Performed: 05/08/2016 Time Performed: 13:12:32 PTAGE: 36 years EKG: Sinus rhythm MODERATE INTRAVENTRICULAR CONDUCTION DELAY BORDERLINE ECG PREVIOUS TRACING : 05/07/2016 01.48 Compared to prior tracing no significant change DOCTOR: John Ghosh Interpretating Date/Time 05/09/2016 15:01:11
== END 2016-05-08 17:00 | DRG 918 ==
LOC: NEPC 00:27 → NEDA 05:37 → HIMW 07:25
PROVIDERS: ADMIT Hospitalist; ATTEND Hospitalist
DX: T43.012A Poisoning by tricyclic antidepressants, intentional self-harm, initial encounter (principal); N17.9 Acute kidney failure, unspecified; E87.2 Acidosis; I95.9 Hypotension, unspecified; F31.9 Bipolar disorder, unspecified; F43.25 Adjustment disorder with mixed disturbance of emotions and conduct; R41.82 Altered mental status, unspecified; Y92.9 Unspecified place or not applicable; F41.9 Anxiety disorder, unspecified; I10 Essential (primary) hypertension; F17.210 Nicotine dependence, cigarettes, uncomplicated; F10.129 Alcohol abuse with intoxication, unspecified; Z91.5 Personal history of self-harm; G89.21 Chronic pain due to trauma; M79.604 Pain in right leg; I45.9 Conduction disorder, unspecified; R10.84 Generalized abdominal pain
CPT/HCPCS: 36600; 71010; 74176; 80048; 80053; 80307; 81001; 82550; 82552; 82570; 82805; 83605; 83690; 83735; 84300; 84443; 84484; 85025; 85610; 85730; 87040; 87205; 87641; 93005; 96365; 96376; J0456; J0696; J2060; J7030; J7050; J7070

== ENCOUNTER 2016-05-08 15:40 | Inpatient (IN) | payer MEDICAID ==
[~2016-05-08] VITALS: Ht 188 cm; Wt 108.0 kg
[~2016-05-08 15:40] MED LIST changes: -DOCU1CAP39 PO; -LIDO5DIS35 TD; +SERO100T PO
[2016-05-08 17:15] VITALS: BP 147/99; PULSE 99; RESP 20; TEMP 98.8; O2SAT 99
[2016-05-08] MEDS ORDERED: ACETAMINOPHEN 325 MG TAB PO PRN (18:30)
[2016-05-08] MEDS ORDERED: MAGNESIUM HYDROXIDE SUSP 30 ML CUP PO PRN (18:30)
[2016-05-08] MEDS ORDERED: ALUMINUM/MAGNESIUM/SIMETH 30 ML CUP PO PRN (18:30)
[2016-05-08] MEDS: REMOVE OLD NICOTINE PATCH T-DERMAL SCH (20:20)
[2016-05-09 05:48] VITALS: BP 127/68; PULSE 78; RESP 18; TEMP 98.2; O2SAT 97
[2016-05-09] MEDS: NICOTINE 21 MG/24 HR PATCH T-DERMAL SCH (08:43)
--- NOTE | 2016-05-09 12:12 | HHI.HP ---
Provisional Diagnosis Admission Date May 08, 2016 at 15:40 [place] I. 1. Adjustment disorder with mixed disturbance of emotions and conduct 2. Rule out alcohol use disorder 3. Suspect some degree of symptom exaggeration or perhaps malingering for senior living or to bolster a disability application or for controlled substances such as narcotics. [place] II. 1. Mixed cluster B/C personality disorder, chiefly antisocial/avoidant- dependent [place] V. GAF is unclear at present Certification of Person's Competence To Provide Express and Informed Consent I have personally examined José Manuel Tijerina, III , a person being served at [facility] on, May 09, 2016 12:12. Express and informed consent means consent voluntarily given in writing, by a competent person, after sufficient explanation and disclosure of the subject matter involved to enable the person to make a knowing and willful decision without any element of force, fraud, deceit, duress, or other form of constraint or coercion. This person is 18 years of age or older, is not now known to be incompetent to consent to treatment with a guardian advocate, and does not have a health care surrogate or proxy currently making medical treatment decisions. I have found this person to be one of the following: [x] Competent to provide express and informed consent, as defined above, for voluntary admission to this facility and is competent to provide express and informed consent for treatment. He/she has the consistent capacity to make well reasoned, willful, and knowing decisions concerning his or her medical or mental health treatment. The person fully and consistently understands the purpose of the admission for examination/placement and is fully capable of personally exercising all rights assured [place] Incompetent to provide express and informed consent to voluntary admission, and this is incompetent to provide express and informed consent to treatment. The person must be transferred to involuntary status and a petition for a guardian advocate filed with the Circuit Court. [] Refusing to provide express and informed consent to voluntary admission but is competent to provide express and informed consent for treatment. The person must be discharged or transferred to involuntary status. Form shall be completed within 24 hours of a person's arrival at the receiving facility and filed in the clinical record of each person: 1. Admitted on a voluntary basis 2. Permitted to provide express and informed consent to his/her own treatment 3. Allowed to transfer from involuntary to voluntary status 4. Prior to permitting a person to consent to his or her own treatment after having been previously found incompetent to consent to treatment. History of Present Illness Capacity: Has Capacity HPI Mr. Tijerina is a 36-year-old male with a history of mixed personality disorder and reported history of depression who is presently admitted to the inpatient psychiatric unit after having been transferred from [facility] for hypotension. Patient's blood pressure was 77/44 on arrival here and there was some concern for possible covert overdose, perhaps on tricyclics. Patient was briefly medically admitted, and his blood pressures rapidly rebounded. Once medically cleared, he was transferred to inpatient psychiatry. Reviewing the electronic medical record, I note that the patient was admitted here under my care at the beginning of March of this year. Patient seen and examined with nurse. Chart reviewed. Case discussed with nursing staff. On my examination today, the patient denies making any overdose prior to admission here. He says "I'm just still highly depressed." He does present as extremely antisocial and manipulative. He is fairly sarcastic and abrasive. He admits to ongoing vague suicidal ideation at this time and describes CAH that he purports are telling him to cut himself. He does have some superficial scratches on his R hand. He describes a fair degree of concern about why he was hypotensive at admission, and this seems incongruous with his report of being suicidal and self-injurious. He does not describe any other hallucinatory material. There are no evident delusions. No hypomanic or manic symptoms. Patient is generally a vague and fairly unengaged historian. He is somewhat medication focused, particularly with regards to his narcotics. Interval psychiatric history: Patient reports that he has been following up at [facility]. He maintains that he has been taking his medications as prescribed. He denies any interval psychiatric admissions or suicide attempts since he was last seen here in March. Family history: Unchanged from previous assessment. Chemical dependency history: Patient denies any recent use of drugs or alcohol although I do note that his alcohol level was elevated on presentation here. Social history: Unchanged from previous assessment except that the patient reports that he is now homeless. He apparently voluntarily left his mother's house because "she was accusing me of drinking." The patient denies drinking, although his alcohol level was elevated on presentation here as I said. He continues to try to obtain disability. E-FORCSE report reviewed: Multisourcing noted. Fill Date Qkgonnx-Atu-Jqpi Qty Days Written Prescriber Name 04/22/2016 TRAMADOL HCL 50 MG TABLET 60 30 03/30/2016 JAMES FLOYD C DO 04/18/2016 HYDROCODON-ACETAMINOPHEN 5-325 3 3 04/18/2016 CHANSTEPHGAM MARIEL C DO 04/07/2016 ACETAMINOPHEN-COD #3 TABLET 20 4 04/06/2016 BALLET YASH Richard DDS 04/07/2016 HYDROCODON-ACETAMINOPHEN 5-325 7 7 04/07/2016 JAMES REYESY C DO 03/31/2016 HYDROCODON-ACETAMINOPHEN 5-325 20 5 03/31/2016 SUGEY CAMARENA DMD 03/30/2016 TRAMADOL HCL 50 MG TABLET 30 15 01/06/2016 JAMES FLOYD C DO 03/17/2016 ALPRAZOLAM 1 MG TABLET 30 30 03/17/2016 JAMES FLOYD C DO 03/14/2016 LORAZEPAM 1 MG TABLET 7 7 03/14/2016 JOELLE SUE MD 03/14/2016 HYDROCODON-ACETAMINOPHEN 5-325 10 5 03/09/2016 JEROME Garza MD 02/05/2016 TRAMADOL HCL 50 MG TABLET 120 30 01/27/2016 MARGE DODD MD 01/18/2016 TRAMADOL HCL 50 MG TABLET 60 30 01/06/2016 JAMES FLOYD C DO 12/20/2015 TRAMADOL HCL 50 MG TABLET 60 30 11/19/2015 JAMES FLOYD C DO 11/19/2015 TRAMADOL HCL 50 MG TABLET 60 30 11/19/2015 JAMES FLOYD C DO 11/13/2015 DIAZEPAM 10 MG TABLET 2 2 11/13/2015 ESCOBAR BREWER) 11/12/2015 HYDROCODON-ACETAMINOPHEN 5-325 40 10 11/12/2015 JAMES FLOYD C DO 10/22/2015 HYDROCODON-ACETAMINOPHEN 5-325 40 10 10/22/2015 JAMES Fernández DO Review of Systems ROS Limitations: Poor Historian Other No reported physical complaints today. No reported headache, vision/hearing changes, chest pain, shortness of breath, bowel or bladder issues. Past Psych History Psychological trauma history No reported trauma history to me. Violence risk - others (6 mos) Lower imminent risk. No HI. No evidence of psychosis (besides reported CAH, which are allegedly to hurt self) that might predispose to violence. Alcohol use and antisocial personality style are chronic risk factors. Violence risk - self (6 mos) Chronic risk. Antisocial personality style and substance use represent chronic risk factors for harm. Neither are likely to improve on the general inpatient psychiatric unit. Patient does report to hear voices telling him to hurt himself, although these are quite vague in their description, and the patient does not appear internally stimulated. I will plan to observe the patient briefly for safety, although I fear overall his prognosis is fairly poor unless he attends to the substance use and [place] II issues. Substance Abuse History Drugs/Alcohol past 12 months See above Past Family Social History Coded Allergies: No Known Allergies (Unverified , 03/21/16) Past Medical History See electronic medical record Discontinued Reported Medications Quetiapine (Seroquel)100 Mg Pgp190 Mg PO DAILY #30 TAB Ref 0 05/07/16 Discontinued Scripts Quetiapine 25 Mg [id number] Mg PO DAILY@09,13,17 15 Days Ref 1 Prov:Bj Romero MD 03/29/16 Quetiapine 300 Mg [id number] Mg PO HS 15 Days Ref 1 Prov:Bj Romero MD 03/29/16 Hydroxyzine Pamoate 25 Mg Cap25 Mg PO Q4H PRN (ANXIETY) 15 Days Ref 1 Prov:Bj Romero MD 03/29/16 Hydroxyzine Pamoate 50 Mg Cap50 Mg PO HS 15 Days Ref 1 Prov:Bj Romero MD 03/29/16 Gabapentin (Neurontin)300 Mg Cap1,200 Mg PO TID 15 Days Ref 1 Prov:Bj Romero MD 03/29/16 [Amitriptyline Hcl] (Elavil)50 MG TAB No Conflict [id number] Mg PO HS 15 Days Ref 1 Prov:Bj Romero MD 03/29/16 Fluoxetine 20 Mg Cap40 Mg PO DAILY 15 Days Ref 1 Prov:Bj Romero MD 03/29/16 Lisinopril 5 Mg Tab2.5 Mg PO DAILY 30 Days Prov:Brii Fernandez MD 03/23/16 Lisinopril 5 Mg Tab2.5 Mg PO DAILY 30 Days Ref 0 Prov:Gloria Rocha 03/29/16 Lidocaine Patch 12 HR (Lidoderm Patch 12 HR)5% Patch1 Patch TD DAILY 15 Days Ref 1 Apply to intact skin on right leg. Remove daily and do not apply more than 1 patch at a time. Remove and contact your doctor if you have any skin irritation or other side effects. Prov:Bj Romero MD 03/29/16 Docusate Sodium (Dok)100 Mg Nkr054 Mg PO BID 15 Days Ref 1 Prov:Bj Romero MD 03/29/16 Current Medications Medications (Trade) Dose Ordered Sig/Brenda Route Start Time Stop Time Status Last Admin (Tylenol) 650 mg Q4H PRN PO 05/08/16 18:30 (Milk Of Magnesia Liq) 30 ml DAILY PRN PO 05/08/16 18:30 (Mag-Al Plus Susp Liq) 30 ml Q6H PRN PO 05/08/16 18:30 (Habitrol 21 Mg Patch.24 Hr) 1 patch DAILY T-DERMAL 05/09/16 09:00 Miscellaneous Information 1 HS T-DERMAL 05/08/16 21:00 Family History See above Social History See above Patient's Strengths (min. 2) In a monitored setting. Verbally fluent. Physical Exam Physical examination completed by medical team prior to transfer. On my examination today, patient appears to be in no acute physical distress. I do note some small lacerations, scratches really, on his right hand. No other signs of trauma. No abnormal motor movements noted. Labs and vital signs reviewed: Vital Signs Vital Signs Date Time Temp Pulse Resp B/P Pulse Ox O2 Delivery O2 Flow Rate FiO2 05/09/16 05:48 98.2 78 18 127/68 97 Lab Results Item Value Date Time White Blood Count 4.7 TH/MM3 05/08/16526 Hemoglobin 11.5 GM/DL L 05/08/16526 Platelet Count 205 TH/MM3 05/08/16526 Sodium Level 138 MEQ/L 05/08/16526 Potassium Level 4.4 MEQ/L 05/08/16526 Chloride Level 106 MEQ/L 05/08/16526 Carbon Dioxide Level 24.5 MEQ/L 3/19/17 0527 Blood Urea Nitrogen 6 MG/DL L 05/08/16 0527 Creatinine 0.76 MG/DL 05/08/16 0527 Aspartate Amino Transf (AST/SGOT) 12 U/L L 05/08/16 0527 Alanine Aminotransferase (ALT/SGPT) 17 U/L 05/08/16 05 Alkaline Phosphatase 65 U/L 05/08/16 0527 Thyroid Stimulating Hormone 3rd Gen 0.464 uIU/ML 05/07/16 1613 Ethyl Alcohol Level 94 MG/DL H 05/07/16 0043 Toxicology reviewed. Cultures reviewed. I do note blood culture with one positive bottle for gram-positive cocci. Abdomen/pelvis CT and chest x-ray findings reviewed. Mental Status Examination Patient is casually dressed. He is somewhat disheveled but maintaining basic hygiene. He is awake and alert and oriented to person and hospital at least. No abnormal motor movements noted. Speech is within normal limits for rate, tone and volume. Language and fund of knowledge seem average. Mood is dysphoric and affect is restricted and somewhat sullen. Thought process linear. No loosening of associations. No evident delusions. Articulates command auditory hallucinations to hurt himself only. No other hallucinatory material. Patient does not appear internally stimulated. Vague suicidal ideation. No reported urge to hurt himself on the inpatient psychiatric unit. Homicidal ideation. Insight and judgment are fair to poor, likely chronically so. Previous Suicide Attempts: No Previous Homicide Attempts: No Assessment & Plan Problem List: (1) Adjustment disorder with mixed disturbance of emotions and conduct ICD Code: F43.25 (2) Mixed personality disorder ICD Code: F60.89 Assessment & Plan This is a 36-year-old male with psychiatric history as detailed above who presents under a Diaz act. The patient was initially medically admitted for hypotension and now stabilized has been transferred to the inpatient psychiatric unit. Patient continues to exhibit antisocial and cluster C personality traits. He articulates command auditory hallucinations to self injure, but these seem likely to be malingered and the patient does not appear at all internally stimulated. I do think that the patient is a chronic risk for self-harm related to his personality issues and possibly also to his alcohol use issues, and I fear his overall prognosis is poor. I will admit the patient to the inpatient psychiatric unit to observe for safety and to see if there are any modifiable acute risk factors that we could improve on the unit. Admit inpatient. Voluntary status. Consult of the hospitalist in light of positive blood cultures. I will resume patient's Prozac 40mg/d, gabapentin 1200mg/day and Vistaril 25mg q6h PRN and 50mg scheduled qHS. I will additionally resume patient's Seroquel 100mg TID as patient is now normotensive but will hold off on his 600mg qHS dose of Seroquel. Defer resuming narcotics to the hospitalist. Vitals every shift. Counselor to see. Disposition planning. Estimated length of stay: 5-7 days. Discharge Planning Pending outcome of observation Request HC Surrog/Guard Advoc?: No Bj Romero MD May 09, 2016 12:12
[2016-05-09] MEDS: hydrOXYzine PAMOATE 25 MG CAP PO PRN ×2 (14:27→21:48)
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
[2016-05-09] MEDS ORDERED: LORazepam 2 MG TAB PO PRN (15:00)
[2016-05-09] MEDS ORDERED: HALOPERIDOL LACTATE 5 MG/ML AMP IM PRN (15:00)
[2016-05-09] MEDS ORDERED: LORazepam 1 MG TAB PO PRN (15:00)
[2016-05-09] MEDS ORDERED: LORazepam 2 MG/ML VIAL IV PUSH PRN ×4 (15:00)
[2016-05-09] MEDS ORDERED: FLUMAZENIL 0.5 MG/5 ML VIAL IV PUSH PRN (15:00)
[2016-05-09] MEDS: QUEtiapine FUMARATE 100 MG TAB PO SCH (16:00)
[2016-05-09] MEDS: GABAPENTIN 400 MG CAP PO SCH (16:00)
[2016-05-09 17:46] VITALS: BP 122/87; PULSE 90; RESP 18; TEMP 97.9; O2SAT 98
[2016-05-09] MEDS: REMOVE OLD NICOTINE PATCH T-DERMAL SCH (20:17)
[2016-05-10 05:31] VITALS: BP 114/71; PULSE 75; RESP 17; TEMP 97.9; O2SAT 95
--- NOTE | 2016-05-10 08:21 | HHI.PR ---
Subjective Remarks F/u bacteremia. No new complaints denies fever dw RN Objective Vitals Vital Signs Date Time Temp Pulse Resp B/P Pulse Ox O2 Delivery O2 Flow Rate FiO2 05/10/16 05:31 97.9 75 17 114/71 95 05/09/16 17:46 97.9 90 18 122/87 98 Objective Remarks GENERAL: This is a well-nourished, well-developed patient, in no apparent distress. SKIN: No rashes, ecchymoses or lesions. Cool and dry. HEAD: Atraumatic. Normocephalic. No temporal or scalp tenderness. EYES: Pupils equal round and reactive. Extraocular motions intact. No scleral icterus. No injection or drainage. ENT: Nose without bleeding, purulent drainage or septal hematoma. Throat without erythema, tonsillar hypertrophy or exudate. Uvula midline. Airway patent. NECK: Trachea midline. No JVD or lymphadenopathy. Supple, nontender, no meningeal signs. CARDIOVASCULAR: Regular rate and rhythm without murmurs, gallops, or rubs. RESPIRATORY: Clear to auscultation. Breath sounds equal bilaterally. No wheezes , rales, or rhonchi. GASTROINTESTINAL: Abdomen soft, non-tender, nondistended. Bowel sounds active 4. No guarding MUSCULOSKELETAL: Extremities without clubbing, cyanosis, or edema. Right lower extremity with scarring from previous beltran. NEUROLOGICAL: Awake and alert. Non focal. Motor and sensory grossly within normal limits. Normal speech. A/P Problem List: (1) BROOKS (acute kidney injury) ICD Code: N17.9 Status: Resolved (2) Major depression, recurrent ICD Code: F33.9 Status: Acute (3) Suicidal ideation ICD Code: R45.851 Status: Acute (4) Hypotension ICD Code: I95.9 Status: Resolved (5) Abdominal pain ICD Code: R10.9 Status: Chronic (6) Adjustment disorder with mixed disturbance of emotions and conduct ICD Code: F43.25 Status: Acute Assessment and Plan Patient is a 36-year-old white male with primary medical history of depression, multiple hospitalization for suicide attempts who came into the hospital from [facility] noted to be hypotensive. Questionable overdose of medication Seroquel. Patient has previous history of attempted suicide by overdosing on Seroquel. As per review of record, this is the 6-7 time he tried to kill himself within the past 6 months. GPC in one out of 4 bottles likely pseudobacteremia. Clinically stable. F/u cx will continue to monitor Hypotension The pt was transferred from [facility] s/t low blood pressure. He has a history of Seroquel overdose and there is concern he did overdose again. Blood pressure improved with fluids. He initially had an elevated lactic acid but that resolved. EKG with mild intraventricular conduction delay. - IV fluid hydration was done. BP improved. - Continue to hold lisinopril for now until BP trend continues to be better. Acute renal failure Unsure of etiology, may be s/t hypotension or from overdose. - Improved with IV hydration. Creatinine 0.76 Alcohol abuse The pt's alcohol level was elevated. He says he gets drunk whenever he can afford it. - seizure precautions. Withdrawal precautions - CIWA protocol. - Counseled - Folic acid/Thiamine - improved Abdominal pain - LFTs and CT abdomen unremarkable. - bowel regimen continue - Prior admission showed history of chronic abdominal pain. Patient is due for colonoscopy as an outpatient. Chronic pain syndrome, neuropathic pain - Avoid using opioid narcotic's as patient has history of abuse and overdose - Continue gabapentin 1200 mg 3 times a day. - Patient states he is seeing pain management. Unable to provide name of Pain Management MD. He will notify nurses if he remembers. Depression, suicidal ideation, suicidal attempts- managed by psychiatry team - Right wrist notable superficial wounds from slashing DVT prop patient ambulatory Shakeel Keene MD May 10, 2016 08:21
[2016-05-10] MEDS ORDERED: FLUoxetine HCL 20 MG CAP PO SCH (09:00)
[2016-05-10] MEDS: NICOTINE 21 MG/24 HR PATCH T-DERMAL SCH (09:00)
[2016-05-10] MEDS: THIAMINE HCL 100 MG TAB PO SCH (09:23)
[2016-05-10] MEDS: QUEtiapine FUMARATE 100 MG TAB PO SCH ×3 (09:23→17:26)
[2016-05-10] MEDS: hydrOXYzine PAMOATE 25 MG CAP PO PRN ×3 (09:24→21:34)
[2016-05-10] MEDS: FOLIC ACID 1 MG TAB PO SCH (09:24)
[2016-05-10] MEDS: MULTIVITAMINS/MINERALS THERAPEUTIC TAB PO SCH (09:24)
[2016-05-10] MEDS: GABAPENTIN 400 MG CAP PO SCH ×3 (09:24→17:26)
--- NOTE | 2016-05-10 10:16 | HHI.PYPN ---
Subjective Remarks Patient seen and examined with nurse. Chart reviewed. Case discussed with nursing staff who reports patient described his mood as good today and said that his command auditory hallucinations were decreasing. On my examination today, the patient does seem less acutely dysphoric. He denies any SI or HI. He does report that his command auditory hallucinations are decreasing. Mood is improving. He requests a referral for counseling but notes that he has an existing psychotherapist through his outpatient mental health provider that he has only seen once, although she did reportedly offer weekly sessions. He requests that his nighttime Seroquel be added back. We discuss other medication changes as noted below. Denies side effects from medications. Review of Systems Other No physical complaints today Objective Alert: Yes [place]: Person, Place, Date, Situation Mood: Depressed (improving) Affect: Blunted Memory Intact: Comment (intact) Hallucinations: Auditory (lessening) Delusions: No Delusion Type: Other (no delusions) Suicidal: Ideation (denies SI) Homicidal: Ideation (denies HI) Insight/Judgement Fair Remarks Thought process linear. No abnormal motor movements noted. Speech within normal limits for rate, tone and volume. Grooming and hygiene are at least fair. Labs Date/Time Procedure Status Source Growth 05/10/16 08:53 Aerobic Blood Culture Received Blood Peripheral Pending 05/10/16 08:53 Anaerobic Blood Culture Received Blood Peripheral Pending Labs reviewed. 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 I will add back patient's nighttime dose of Seroquel, 600 mg at bedtime. For the first dose, I will administer this in 2 divided doses of 300 mg each, checking blood pressure before administering second dose to ensure that the patient does not become too hypotensive. Appreciate hospitalist strategic planning consultant input. I will follow repeat blood cultures. Continue to monitor on the inpatient unit. Continue other medications and care as ordered. Justification for Cont. Inpt. Medication changes in process. Complicating conditions, ruling out bacteremia. Monitoring for impairments in safety, so far none noted. Discharge Planning Pending psychiatric stabilization. Request HC Surrog/Guard Advoc?: No Bj Romero MD May 10, 2016 10:16
[2016-05-10 17:44] VITALS: BP 130/80; PULSE 80; RESP 18; TEMP 97.4; O2SAT 98
[2016-05-10] MEDS: REMOVE OLD NICOTINE PATCH T-DERMAL SCH (21:00)
[2016-05-10 21:34] VITALS: BP 123/83; PULSE 97
[2016-05-10] MEDS: QUEtiapine FUMARATE 300 MG TAB PO SCH (21:34)
[2016-05-11 06:07] VITALS: BP 126/75; PULSE 89; RESP 18; TEMP 97.6; O2SAT 98
[2016-05-11 06:17] VITALS: BP 126/75; PULSE 89; RESP 18; TEMP 97.6; O2SAT 98
[2016-05-11] MEDS: FOLIC ACID 1 MG TAB PO SCH (08:44)
[2016-05-11] MEDS: GABAPENTIN 400 MG CAP PO SCH ×3 (08:44→17:07)
[2016-05-11] MEDS: FLUoxetine HCL 10 MG CAP PO SCH (08:44)
[2016-05-11] MEDS: MULTIVITAMINS/MINERALS THERAPEUTIC TAB PO SCH (08:44)
[2016-05-11] MEDS: QUEtiapine FUMARATE 100 MG TAB PO SCH ×3 (08:44→17:07)
[2016-05-11] MEDS: THIAMINE HCL 100 MG TAB PO SCH (08:44)
[2016-05-11] MEDS: FLUoxetine HCL 20 MG CAP PO SCH (08:44)
[2016-05-11] MEDS: NICOTINE 21 MG/24 HR PATCH T-DERMAL SCH (08:46)
--- NOTE | 2016-05-11 09:07 | HHI.PYPN ---
Subjective Remarks Patient seen and examined with counselor. Chart reviewed. Case discussed with nursing staff. It is the sense of the staff that the patient is exaggerating or malingering his symptoms. He is reportedly not attending any groups. On my examination today, social issues seem to predominate. He wonders if we can arrange housing for him, although he has no funds or other means to facilitate this, and counselor explains that his options therefore are quite limited. Mood is reportedly improved. He denies suicidal or homicidal ideation. No AVH. Denies side effects from medications and slept well with resumption of home dose of Seroquel. Review of Systems Other No physical complaints today. Objective Alert: Yes [place]: Person, Place, Date, Situation Mood: Calm Affect: Blunted Memory Intact: Comment (Remains intact) Hallucinations: Other (No AVH) Delusions: No Delusion Type: Other (No delusional material) Suicidal: Ideation (Denies suicidal ideation) Homicidal: Ideation (Denies homicidal ideation) Insight/Judgement Fair. Remarks Thought processes linear. Speech within normal limits for rate, tone and volume. No motor abnormalities noted. Grooming and hygiene at least fair. Labs Date/Time Procedure Status Source Growth 05/10/16 08:53 Aerobic Blood Culture Received Blood Peripheral Pending 05/10/16 08:53 Anaerobic Blood Culture Received Blood Peripheral Pending Labs reviewed. 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 Continue Seroquel and gabapentin as ordered. Patient declines medication adjustment today. Continue to monitor on the inpatient unit. Continue other medications and care as ordered. Justification for Cont. Inpt. Monitoring for impairments in safety, so far none noted. Discharge Planning Anticipate discharge within the next 1-2 days barring some clinical deterioration. Case discussed with counselor. Request HC Surrog/Guard Advoc?: No Bj Romero MD May 11, 2016 09:07
--- NOTE | 2016-05-11 10:01 | HHI.PR ---
Subjective Remarks Follow-up GPC bacteremia. He has no new complaints. No fever or chills. Discussed with RN Objective Vitals Vital Signs Date Time Temp Pulse Resp B/P Pulse Ox O2 Delivery O2 Flow Rate FiO2 05/11/16 06:17 97.6 89 18 126/75 98 05/10/16 21:34 97 123/83 05/10/16 17:44 97.4 80 18 130/80 98 Objective Remarks GENERAL: This is a well-nourished, well-developed patient, in no apparent distress. SKIN: No rashes, ecchymoses or lesions. Cool and dry. HEAD: Atraumatic. Normocephalic. No temporal or scalp tenderness. EYES: Pupils equal round and reactive. Extraocular motions intact. No scleral icterus. No injection or drainage. ENT: Nose without bleeding, purulent drainage or septal hematoma. Throat without erythema, tonsillar hypertrophy or exudate. Uvula midline. Airway patent. NECK: Trachea midline. No JVD or lymphadenopathy. Supple, nontender, no meningeal signs. CARDIOVASCULAR: Regular rate and rhythm without murmurs, gallops, or rubs. RESPIRATORY: Clear to auscultation. Breath sounds equal bilaterally. No wheezes , rales, or rhonchi. GASTROINTESTINAL: Abdomen soft, non-tender, nondistended. Bowel sounds active 4. No guarding MUSCULOSKELETAL: Extremities without clubbing, cyanosis, or edema. Right lower extremity with scarring from previous beltran. NEUROLOGICAL: Awake and alert. Non focal. Motor and sensory grossly within normal limits. Normal speech. Nonfocal A/P Problem List: (1) BROOKS (acute kidney injury) ICD Code: N17.9 Status: Resolved (2) Major depression, recurrent ICD Code: F33.9 Status: Acute (3) Suicidal ideation ICD Code: R45.851 Status: Acute (4) Hypotension ICD Code: I95.9 Status: Resolved (5) Abdominal pain ICD Code: R10.9 Status: Chronic (6) Adjustment disorder with mixed disturbance of emotions and conduct ICD Code: F43.25 Status: Acute Assessment and Plan Patient is a 36-year-old white male with primary medical history of depression, multiple hospitalization for suicide attempts who came into the hospital from [facility] noted to be hypotensive. Questionable overdose of medication Seroquel. Patient has previous history of attempted suicide by overdosing on Seroquel. As per review of record, this is the 6-7 time he tried to kill himself within the past 6 months. GPC in one out of 4 bottles likely pseudobacteremia. Clinically stable. F/u repeat cx negative to date will continue to monitor Hypotension The pt was transferred from [facility] s/t low blood pressure. He has a history of Seroquel overdose and there is concern he did overdose again. Blood pressure improved with fluids. He initially had an elevated lactic acid but that resolved. EKG with mild intraventricular conduction delay. - IV fluid hydration was done. BP improved. - Continue to hold lisinopril for now until BP trend continues to be better. Acute renal failure Unsure of etiology, may be s/t hypotension or from overdose. - Improved with IV hydration. Creatinine 0.76 Alcohol abuse The pt's alcohol level was elevated. He says he gets drunk whenever he can afford it. - seizure precautions. Withdrawal precautions - stable dc CIWA protocol. - Counseled - Folic acid/Thiamine Abdominal pain - LFTs and CT abdomen unremarkable. - bowel regimen continue - Prior admission showed history of chronic abdominal pain. Patient is due for colonoscopy as an outpatient. Chronic pain syndrome, neuropathic pain - Avoid using opioid narcotic's as patient has history of abuse and overdose - Continue gabapentin 1200 mg 3 times a day. - Patient states he is seeing pain management. Unable to provide name of Pain Management MD. He will notify nurses if he remembers. Depression, suicidal ideation, suicidal attempts- managed by psychiatry team - Right wrist notable superficial wounds from slashing DVT prop patient ambulatory Shakeel Keene MD May 11, 2016 10:01
[2016-05-11] MEDS: hydrOXYzine PAMOATE 25 MG CAP PO PRN (11:25)
[2016-05-11 18:12] VITALS: BP 128/81; PULSE 95; RESP 18; TEMP 98.7; O2SAT 92
[2016-05-11] MEDS: QUEtiapine FUMARATE 300 MG TAB PO SCH (20:02)
[2016-05-11] MEDS: REMOVE OLD NICOTINE PATCH T-DERMAL SCH (20:03)
[2016-05-12 06:03] VITALS: BP 135/79; PULSE 77; RESP 17; TEMP 97.2; O2SAT 98
[2016-05-12] MEDS: NICOTINE 21 MG/24 HR PATCH T-DERMAL SCH (09:00)
[2016-05-12] MEDS: FLUoxetine HCL 10 MG CAP PO SCH (09:11)
[2016-05-12] MEDS: FLUoxetine HCL 20 MG CAP PO SCH (09:11)
[2016-05-12] MEDS: GABAPENTIN 400 MG CAP PO SCH ×3 (09:11→18:08)
[2016-05-12] MEDS: THIAMINE HCL 100 MG TAB PO SCH (09:11)
[2016-05-12] MEDS: FOLIC ACID 1 MG TAB PO SCH (09:11)
[2016-05-12] MEDS: MULTIVITAMINS/MINERALS THERAPEUTIC TAB PO SCH (09:11)
[2016-05-12] MEDS: QUEtiapine FUMARATE 100 MG TAB PO SCH ×3 (09:11→18:07)
--- NOTE | 2016-05-12 10:11 | HHI.PR ---
Addendum to Inpatient Note Additional Information Consulted for GPC bacteremia in 1 out of 8 bottles consistent with Pseudobacteremia. He is medically stable. We'll sign off. Reconsult as needed Shakeel Keene MD May 12, 2016 10:11
[2016-05-12] MEDS: hydrOXYzine PAMOATE 25 MG CAP PO PRN ×2 (15:10→22:02)
[2016-05-12] MEDS ORDERED: PILL SPLITTER OTHER PRN (15:15)
--- NOTE | 2016-05-12 15:16 | HHI.PYPN ---
Subjective Remarks Patient seen and examined. Chart reviewed. Case discussed with nursing staff. Patient was able to be transferred to the lower acuity inpatient psychiatric unit without incident. On my examination today, patient presents as fairly manipulative. He says that he has been feeling edgy and irritable and, although he verbalizes no current suicidal or homicidal ideation, he "[doesn't] know what [he] might do" if I were to discharge him without addressing this. He also maintains that he has been sad and tearful, although this has not been noted by staff, and patient has been out in the day area in no apparent distress. He says that he has been on Xanax in the past, and this has helped for this sensation. Denies side effects from medications. Review of Systems Other No physical complaints today. Objective Alert: Yes [place]: Person, Place, Date, Situation Mood: Depressed Affect: Other (Inconsistent with stated mood. Does not appear particularly depressed.) Memory Intact: Comment (Remains intact) Hallucinations: Other (None) Delusions: No Delusion Type: Other (No delusions) Suicidal: Ideation (Reports chronic SI but no acute SI, intent, plan) Homicidal: Ideation (No HI but see above) Insight/Judgement Fair Remarks TP linear. No abnormal motor movements noted. Grooming and hygiene good. Labs Date/Time Procedure Status Source Growth 05/10/16 08:53 Aerobic Blood Culture - Preliminary Resulted Blood Peripheral NO GROWTH IN 2 DAYS 05/10/16 08:53 Anaerobic Blood Culture - Preliminary Resulted Blood Peripheral NO GROWTH IN 2 DAYS Labs reviewed. 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 I have explained that these agents are habit-forming, particularly in patients with a substance use history, and can be difficult to obtain in the community, especially at community mental health agencies. I have instructed him not to combine these agents with alcohol. I have further explained that I will give him no more than 7 days worth of benzo on discharge. He understands and agrees to these conditions. Start Klonopin 0.25mg BID. Continue other psychotropics as ordered. Continue other medications and care as ordered. Justification for Cont. Inpt. Medication changes. We have monitored for safety and there has been no evidence of any suicidality or violence on the unit despite about 5 days of observation. Discharge Planning Monitor overnight. Possible discharge tomorrow or at the latest after the weekend. Request HC Surrog/Guard Advoc?: No Bj Romero MD May 12, 2016 15:16
[2016-05-12 18:59] VITALS: BP 121/79; PULSE 78; RESP 16; TEMP 97.5; O2SAT 97
[2016-05-12] MEDS: clonazePAM 0.5 MG TAB PO SCH (20:24)
[2016-05-12] MEDS: QUEtiapine FUMARATE 300 MG TAB PO SCH (20:24)
[2016-05-13 06:02] VITALS: BP 110/65; PULSE 72; RESP 18; TEMP 97.5; O2SAT 97
[2016-05-13] MEDS: FLUoxetine HCL 10 MG CAP PO SCH (09:20)
[2016-05-13] MEDS: FLUoxetine HCL 20 MG CAP PO SCH (09:20)
[2016-05-13] MEDS: MULTIVITAMINS/MINERALS THERAPEUTIC TAB PO SCH (09:20)
[2016-05-13] MEDS: QUEtiapine FUMARATE 100 MG TAB PO SCH ×3 (09:21→17:49)
[2016-05-13] MEDS: GABAPENTIN 400 MG CAP PO SCH ×3 (09:21→17:49)
[2016-05-13] MEDS: clonazePAM 0.5 MG TAB PO SCH ×2 (09:21→20:47)
[2016-05-13] MEDS: FOLIC ACID 1 MG TAB PO SCH (09:21)
[2016-05-13] MEDS: THIAMINE HCL 100 MG TAB PO SCH (09:21)
--- NOTE | 2016-05-13 13:09 | HHI.PYPN ---
Subjective Remarks Remains edgy and is asking for an increase in his clonazepam. This physician also feels the patient is very manipulative and declines to increase his benzodiazepine. Patient wants to stay over the weekend because his benzodiazepine was started yesterday. Review of Systems ROS Limitations: Clinical Condition Except as stated in HPI: all other systems reviewed are Neg Objective Alert: Yes [place]: Person, Place, Date, Situation Mood: Depressed Affect: Other (Inconsistent with stated mood. Does not appear particularly depressed.) Memory Intact: Comment (Remains intact) Hallucinations: Other (None) Delusions: No Delusion Type: Other (No delusions) Suicidal: Ideation (Reports chronic SI but no acute SI, intent, plan) Homicidal: Ideation (No HI but see above) Insight/Judgement Impaired but most likely baseline. 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 Justification for Cont. Inpt. Continues to make suicidal threats. Request HC Surrog/Guard Advoc?: No Vasu Dee MD May 13, 2016 13:09
[2016-05-13] MEDS: hydrOXYzine PAMOATE 25 MG CAP PO PRN ×2 (13:22→22:44)
[2016-05-13 19:53] VITALS: BP 121/80; PULSE 81; RESP 16; TEMP 96.2; O2SAT 96
[2016-05-13] MEDS: QUEtiapine FUMARATE 300 MG TAB PO SCH (20:47)
[2016-05-14] MEDS: THIAMINE HCL 100 MG TAB PO SCH (08:25)
[2016-05-14] MEDS: MULTIVITAMINS/MINERALS THERAPEUTIC TAB PO SCH (08:25)
[2016-05-14] MEDS: FLUoxetine HCL 20 MG CAP PO SCH (08:25)
[2016-05-14] MEDS: FLUoxetine HCL 10 MG CAP PO SCH (08:26)
[2016-05-14] MEDS: QUEtiapine FUMARATE 100 MG TAB PO SCH ×3 (08:27→17:33)
[2016-05-14] MEDS: GABAPENTIN 400 MG CAP PO SCH ×3 (08:27→17:33)
[2016-05-14] MEDS: FOLIC ACID 1 MG TAB PO SCH (08:28)
[2016-05-14] MEDS: clonazePAM 0.5 MG TAB PO SCH ×2 (08:28→21:54)
[2016-05-14 17:45] VITALS: BP 125/90; PULSE 89; RESP 18; TEMP 97.9; O2SAT 99
[2016-05-14] MEDS: QUEtiapine FUMARATE 300 MG TAB PO SCH (21:54)
[2016-05-14] MEDS: hydrOXYzine PAMOATE 25 MG CAP PO PRN (22:53)
[2016-05-15 06:22] VITALS: BP 100/59; PULSE 67; RESP 16; TEMP 97.6; O2SAT 96
[2016-05-15] MEDS: GABAPENTIN 400 MG CAP PO SCH ×3 (08:58→17:00)
[2016-05-15] MEDS: FLUoxetine HCL 10 MG CAP PO SCH (08:58)
[2016-05-15] MEDS: clonazePAM 0.5 MG TAB PO SCH ×2 (08:59→21:00)
[2016-05-15] MEDS: FLUoxetine HCL 20 MG CAP PO SCH (08:59)
[2016-05-15] MEDS: THIAMINE HCL 100 MG TAB PO SCH (09:00)
[2016-05-15] MEDS: QUEtiapine FUMARATE 100 MG TAB PO SCH ×3 (09:00→17:00)
[2016-05-15] MEDS: hydrOXYzine PAMOATE 25 MG CAP PO PRN ×3 (10:56→22:32)
--- NOTE | 2016-05-15 13:43 | HHI.PYPN ---
Subjective Remarks Patient was seen and case discussed with nursing. Patient is irritable and apathetic. Initially refuses the interview. Was complaining of pain yesterday and attempt to get opiates. Until no does not complain of pain since. " Feeling fine." Blunted affect, denies suicidal ideation intent or plan. 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 Inpt. Patient will decompensate in a less restrictive setting Request HC Surrog/Guard Advoc?: No Thuan Lloyd DO May 15, 2016 13:43
[2016-05-15 17:31] VITALS: BP 153/96; PULSE 84; RESP 16; TEMP 98.5; O2SAT 98
[2016-05-15] MEDS: QUEtiapine FUMARATE 300 MG TAB PO SCH (21:00)
[2016-05-16 05:27] VITALS: BP 111/71; PULSE 72; RESP 16; TEMP 96.9; O2SAT 97
[2016-05-16] MEDS: THIAMINE HCL 100 MG TAB PO SCH (09:00)
[2016-05-16] MEDS: QUEtiapine FUMARATE 100 MG TAB PO SCH (09:00)
[2016-05-16] MEDS: FLUoxetine HCL 10 MG CAP PO SCH (09:00)
[2016-05-16] MEDS: clonazePAM 0.5 MG TAB PO SCH (09:00)
[2016-05-16] MEDS: FLUoxetine HCL 20 MG CAP PO SCH (09:00)
[2016-05-16] MEDS: GABAPENTIN 400 MG CAP PO SCH (09:00)
[2016-05-16] MEDS ORDERED: FLUO20CA4 PO (09:37)
[2016-05-16] MEDS ORDERED: CLON.5 PO (09:37)
[2016-05-16] MEDS ORDERED: FLUO-1 PO (09:37)
--- NOTE | 2016-05-16 09:37 | HHI.DS ---
Psychiatry Discharge Summary Inpatient Psychiatric care?: Yes Advance Directive: No Reason Not Provided: DOES NOT HAVE Mental Health AdvanceDirective: No Health Care Proxy: No Admission Admission Date May 08, 2016 at 15:40 Admission Diagnosis: (1) Adjustment disorder ICD Code: F43.20 (2) Mixed personality disorder ICD Code: F60.89 Brief History Mr. Tijerina is a 36-year-old male with a history of mixed personality disorder and reported history of depression who is presently admitted to the inpatient psychiatric unit after having been transferred from [facility] for hypotension. Patient's blood pressure was 77/44 on arrival here and there was some concern for possible covert overdose, perhaps on tricyclics. Patient was briefly medically admitted, and his blood pressures rapidly rebounded. Once medically cleared, he was transferred to inpatient psychiatry. Reviewing the electronic medical record, I note that the patient was admitted here under my care at the beginning of March of this year. Patient seen and examined with nurse. Chart reviewed. Case discussed with nursing staff. On my examination today, the patient denies making any overdose prior to admission here. He says "I'm just still highly depressed." He does present as extremely antisocial and manipulative. He is fairly sarcastic and abrasive. He admits to ongoing vague suicidal ideation at this time and describes CAH that he purports are telling him to cut himself. He does have some superficial scratches on his R hand. He describes a fair degree of concern about why he was hypotensive at admission, and this seems incongruous with his report of being suicidal and self-injurious. He does not describe any other hallucinatory material. There are no evident delusions. No hypomanic or manic symptoms. Patient is generally a vague and fairly unengaged historian. He is somewhat medication focused, particularly with regards to his narcotics. Interval psychiatric history: Patient reports that he has been following up at [facility]. He maintains that he has been taking his medications as prescribed. He denies any interval psychiatric admissions or suicide attempts since he was last seen here in March. Family history: Unchanged from previous assessment. Chemical dependency history: Patient denies any recent use of drugs or alcohol although I do note that his alcohol level was elevated on presentation here. Social history: Unchanged from previous assessment except that the patient reports that he is now homeless. He apparently voluntarily left his mother's house because "she was accusing me of drinking." The patient denies drinking, although his alcohol level was elevated on presentation here as I said. He continues to try to obtain disability. E-FORCSE report reviewed: Multisourcing noted. Fill Date Tmjoyey-Xoy-Pago Qty Days Written Prescriber Name 04/22/2016 TRAMADOL HCL 50 MG TABLET 60 30 03/30/2016 ZIYADM MARIEL C DO 04/18/2016 HYDROCODON-ACETAMINOPHEN 5-325 3 3 04/18/2016 ZIYADM MARIEL C DO 04/07/2016 ACETAMINOPHEN-COD #3 TABLET 20 4 04/06/2016 DAKOTAET YASH V DDS 04/07/2016 HYDROCODON-ACETAMINOPHEN 5-325 7 7 04/07/2016 JAMES REYESY C DO 03/31/2016 HYDROCODON-ACETAMINOPHEN 5-325 20 5 03/31/2016 VU MIGUE DMD 03/30/2016 TRAMADOL HCL 50 MG TABLET 30 15 01/06/2016 JAMES FLOYD C DO 03/17/2016 ALPRAZOLAM 1 MG TABLET 30 30 03/17/2016 ZIYADM MARIEL C DO 03/14/2016 LORAZEPAM 1 MG TABLET 7 7 03/14/2016 JOELLE SUE MD 03/14/2016 HYDROCODON-ACETAMINOPHEN 5-325 10 5 03/09/2016 JEROME Garza MD 02/05/2016 TRAMADOL HCL 50 MG TABLET 120 30 01/27/2016 MARGE DODD MD 01/18/2016 TRAMADOL HCL 50 MG TABLET 60 30 01/06/2016 JAMES FLOYD C DO 12/20/2015 TRAMADOL HCL 50 MG TABLET 60 30 11/19/2015 EDWINGAM MARIEL C DO 11/19/2015 TRAMADOL HCL 50 MG TABLET 60 30 11/19/2015 ZIYADM MARIEL C DO 11/13/2015 DIAZEPAM 10 MG TABLET 2 2 11/13/2015 ESCOBAR BREWER) 11/12/2015 HYDROCODON-ACETAMINOPHEN 5-325 40 10 11/12/2015 ZIYADM MARIEL C DO 10/22/2015 HYDROCODON-ACETAMINOPHEN 5-325 40 10 10/22/2015 JAMES FLOYD C DO Tobacco Use In Past 30 Days: No Tobacco Past 30 Days Alcohol Use: 4 or More Times Per Week Hospital Course Patient was admitted to a locked, inpatient psychiatric unit. A general medical consultation was obtained. Appropriate precautions were in place throughout patient's hospital stay. The patient was seen and examined on the unit by psychiatry and also visited by counselor. Psychotropic medications were adjusted. Patient tolerated medication changes well without side effects. There was no evidence of any suicidality or homicidality on the inpatient unit despite extended observation totaling about 8 days. Patient remained in good behavioral control but was noted to be fairly antisocial and manipulative in his presentation. Patient was compliant with medications. He was noted at times to be medication seeking. On the day of discharge: Patient seen and examined. Chart reviewed. Case discussed with nursing staff. No behavioral problems noted. On my examination today, the patient is requesting discharge from the inpatient psychiatric unit today. He says that the addition of the low dose of Klonopin "seems to be working" for his irritability that he had been complaining of before the weekend. He does endeavor to obtain an escalation of the dose, but in light of the fact that the patient says that he "feel[s] great," I have declined to make any adjustment at this time. Patient reports mood is improved versus admission, and he describes no depressive or hypomanic/manic symptoms at this time. No audiovisual hallucinations. No evident delusions. Denies suicidal or homicidal ideation on direct questioning. Denies side effects from medications. No physical complaints. Weighing the acute, chronic, and protective factors and based on the available evidence, I construction safety manager to a reasonable degree of medical certainty that the patient is at low imminent risk of harm to self or others from a mental illness as defined under the Diaz act and his level of function is adequate for outpatient care. Consequently, the patient does not meet criteria for involuntary psychiatric hospitalization at this time. I do suspect that there is a component of chronic risk for harm related to patient's mixed personality disorder with antisocial traits and also to his substance use issues, to the extent that these are active, but neither of these risk factors would be ameliorated by a longer inpatient psychiatric hospital stay. Given that the patient does not meet criteria for involuntary psychiatric hospitalization and given that he is requesting discharge from the inpatient psychiatric unit today , I must discharge the patient from the inpatient psychiatric unit today. Patient is to follow-up psychiatrically as arranged by counselor as well as with primary care. I provided the patient with a seven-day prescription for his Klonopin per our agreement as well as a supply of Prozac as the dose of this medication was adjusted. Patient has an adequate supply of his gabapentin , hydroxyzine, and Seroquel. I have limited the quantity to the smallest amount consistent with good care given presenting concern for overdose. I have reminded the patient to return to the psychiatric emergency room as part of the general safety plan. Results Blood Pressure 111 / 71 Vital Signs Date Time Temp Pulse Resp B/P Pulse Ox O2 Delivery O2 Flow Rate FiO2 05/16/16 05:27 96.9 72 16 111/71 97 Laboratories were obtained during preceding medical hospitalization. Summary of Procedures None done Imaging None done Pending results at discharge: No Medications # of Antipsychotic meds at D/C: 1 Approp Antipsych med options 1 - Minimum of three failed multiple trials of monotherapy. 2 - Documented plan to taper to monotherapy due to previous use of multiple meds OR cross-taper in progress at D/C. 3 - Documentation of augmentation of Clozapine. 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 GAF on discharge is 55. Mental Status Exam at Disch Patient is casually dressed. He is well groomed. He is awake and alert and oriented to person and hospital at least. No evidence of delirium. No abnormal motor movements noted. Speech is within normal limits for rate, tone and volume. Language and fund of knowledge seemed average. Mood is reportedly improved versus admission and affect is blunted. Thought process linear. No loosening of associations. No evident delusions. No audiovisual hallucinations. Denies suicidal or homicidal ideation. Insight and judgment are fair at best. Pt Condition on Discharge: Stable Discharge Disposition: Discharge Home Discharge Instructions Diet Instructions: As Tolerated, No Restrictions Activities you can perform: Weight Bearing as Gabriella Scheduled Appointment: as per counselor's notes New Medications: Clonazepam (Klonopin) 0.5 Mg Tab 0.25 MG PO Q12HR Mental Health Days 7 Ref 0 TAB Fluoxetine (Prozac) 10 Mg Cap 10 MG PO DAILY Mental Health Days 7 Ref 3 CAP Fluoxetine (Fluoxetine) 20 Mg Cap 40 MG PO DAILY Mental Health Days 7 Ref 3 CAP Discharge Time <= 30 minutes Discharge/Advance Care Plan Health Problems: (1) Adjustment disorder with mixed disturbance of emotions and conduct (2) Mixed personality disorder Goals to promote your health * To prevent worsening of your condition and complications * To maintain your health at the optimal level Directions to meet your goals Take your medications as prescribed Follow your dietary instruction Follow activity as directed Keep your appointments as scheduled Take your immunizations and boosters as scheduled If your symptoms worsen call your PCP, if no PCP go to Urgent Care Center or Emergency Room For 12/09 questions related to your inpatient stay or results of tests pending at discharge, please contact Dr. Bj Romero at Smoking is Dangerous to Your Health. Avoid second hand smoking Problem Qualifiers (1) Adjustment disorder: Qualified Code: F43.25 - Adjustment disorder with mixed disturbance of emotions and conduct Bj Romero MD May 16, 2016 09:37
[2016-05-16] MEDS: hydrOXYzine PAMOATE 25 MG CAP PO PRN (10:17)
== END 2016-05-16 11:50 | disposition home or self-care (01) | DRG 882 ==
LOC: H270 15:40 → H260 05-12 10:05
PROVIDERS: ADMIT Psychiatry & Neurology Psychiatry; ATTEND Psychiatry & Neurology Psychiatry
DX: F43.25 Adjustment disorder with mixed disturbance of emotions and conduct (principal); N17.9 Acute kidney failure, unspecified; R45.851 Suicidal ideations; F33.9 Major depressive disorder, recurrent, unspecified; G62.9 Polyneuropathy, unspecified; R44.0 Auditory hallucinations; F60.2 Antisocial personality disorder; F60.89 Other specific personality disorders; I10 Essential (primary) hypertension; R10.9 Unspecified abdominal pain; I45.9 Conduction disorder, unspecified; F10.10 Alcohol abuse, uncomplicated; G89.4 Chronic pain syndrome; T43.591A Poisoning by other antipsychotics and neuroleptics, accidental (unintentional), initial encounter; F17.210 Nicotine dependence, cigarettes, uncomplicated; Z59.0 Homelessness; Z76.5 Malingerer [conscious simulation]; Z91.5 Personal history of self-harm
CPT/HCPCS: 87040; Q0177

== ENCOUNTER 2016-05-18 20:30 | Inpatient (IN) | payer MEDICAID, OTHER ==
[~2016-05-18] VITALS: Ht 188 cm; Wt 106.3 kg
[~2016-05-18 20:30] MED LIST changes: -Amitriptyline PO; +CLON.5 PO; +FLUO-1 PO; -HYDR1CAP30 PO; -HYDR50CA PO; -LISI-519 PO; -NEUR300C PO; -QUET1TAB10 PO; -QUET1TAB7 PO; -SERO100T PO
[2016-05-18 21:03] VITALS: BP 137/89; PULSE 109; RESP 18; TEMP 98.3; O2SAT 96
[2016-05-18] MEDS ORDERED: ACETAMINOPHEN 325 MG TAB PO PRN (21:30)
[2016-05-18] MEDS ORDERED: ALUMINUM/MAGNESIUM/SIMETH 30 ML CUP PO PRN (21:30)
[2016-05-18] MEDS ORDERED: MAGNESIUM HYDROXIDE SUSP 30 ML CUP PO PRN (21:30)
[2016-05-18] MEDS: LORazepam 1 MG TAB PO PRN (21:57)
[2016-05-18] MEDS ORDERED: HALOPERIDOL LACTATE 5 MG/ML AMP IM PRN (22:00)
[2016-05-18] MEDS ORDERED: LORazepam 2 MG TAB PO PRN (22:00)
[2016-05-18] MEDS ORDERED: LORazepam 2 MG/ML VIAL IV PUSH PRN ×4 (22:00)
[2016-05-18] MEDS ORDERED: FLUMAZENIL 0.5 MG/5 ML VIAL IV PUSH PRN (22:00)
[2016-05-19 06:19] VITALS: BP 148/93; PULSE 73; RESP 17; TEMP 97.9; O2SAT 97
[2016-05-19 07:52] LABS: ANION GAP 6 MEQ/L (5-15); BICARBONATE 26.2 MEQ/L (21.0-32.0); BLOOD UREA NITROGEN 8 MG/DL (7-18); CHLORIDE 108 MEQ/L (98-107); GLOMERULAR FILTRATION RATE 105 ML/MIN (>89); POTASSIUM 3.7 MEQ/L (3.5-5.1); SODIUM (NA) 140 MEQ/L (136-145)
[2016-05-19 07:54] LABS: HDL CHOLESTEROL 54.2 MG/DL (40.0-60.0); LDL CHOLESTEROL 50 MG/DL (0-99)
--- NOTE | 2016-05-19 09:05 | HHI.HP ---
Provisional Diagnosis Admission Date May 18, 2016 at 21:00 Mead I. 1. Adjustment disorder with disturbance of emotions and conduct 2. Alcohol dependence Mead II. 1. 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 GAF is 40 presently Certification of Person's Competence To Provide Express and Informed Consent I have personally examined José Manuel Tijerina, GUILLERMO , a person being served at [facility] on, May 19, 2016 09:05. Express and informed consent means consent voluntarily given in writing, by a competent person, after sufficient explanation and disclosure of the subject matter involved to enable the person to make a knowing and willful decision without any element of force, fraud, deceit, duress, or other form of constraint or coercion. This person is 18 years of age or older, is not now known to be incompetent to consent to treatment with a guardian advocate, and does not have a health care surrogate or proxy currently making medical treatment decisions. I have found this person to be one of the following: [x] Competent to provide express and informed consent, as defined above, for voluntary admission to this facility and is competent to provide express and informed consent for treatment. He/she has the consistent capacity to make well reasoned, willful, and knowing decisions concerning his or her medical or mental health treatment. The person fully and consistently understands the purpose of the admission for examination/placement and is fully capable of personally exercising all rights assured under [place] Incompetent to provide express and informed consent to voluntary admission, and this is incompetent to provide express and informed consent to treatment. The person must be transferred to involuntary status and a petition for a guardian advocate filed with the Circuit Court. [] Refusing to provide express and informed consent to voluntary admission but is competent to provide express and informed consent for treatment. The person must be discharged or transferred to involuntary status. Form shall be completed within 24 hours of a person's arrival at the receiving facility and filed in the clinical record of each person: 1. Admitted on a voluntary basis 2. Permitted to provide express and informed consent to his/her own treatment 3. Allowed to transfer from involuntary to voluntary status 4. Prior to permitting a person to consent to his or her own treatment after having been previously found incompetent to consent to treatment. History of Present Illness Capacity: Has Capacity HPI Mr. Tijerina is a 36-year-old male with a history of adjustment disorder and mixed personality disorder as well as substance use issues who presents in transfer from outside hospital under a Diaz act. In reviewing the outside hospital records, patient was apparently found altered with a Klonopin bottle and brought to their ED. His alcohol level on presentation at OSH was 142. He briefly required intubation. He was started on Levaquin for possible PNA. Once medically cleared, he was transferred to inpatient psychiatry here at [facility] for further management. Patient is well-known to me, and on review of the EMR, I note he requested and received discharge from the inpatient psychiatric unit Monday as he did not meet criteria for involuntary psychiatric hospitalization at that time. Patient seen and examined. Chart reviewed. Case discussed with RN. On my examination today, patient remains fairly manipulative and antisocial. He admits to abusing the Klonopin and combining it with alcohol even though I specifically instructed him not to do so. He is fairly defiant and takes no ownership of his abuse of these substances. He is otherwise a vague historian. He reports feeling somewhat depressed and reports chronic SI. He alludes to some vague "voices" but cannot describe these in any detail. No other hallucinatory material. No delusions. No homicidal ideation voiced. No hypomanic or manic symptoms. The remainder of the psychiatric ROS is negative. Past psychiatric, family, chemical dependency and social history were all obtained in my H&P on 05/09. These are unchanged today except that the patient initially tries to minimize his alcohol use. He also noted last time that he was kicked out of his mother's house because of his drinking. Review of Systems ROS Limitations: Poor Historian Except as stated in HPI: all other systems reviewed are Neg Past Psych History Psychological trauma history No reported trauma history to me Violence risk - others (6 mos) Risk assessment from 05/09 reviewed, and this is essentially unchanged today: Patient voices no homicidal ideation. No known history of violence. His reported voices today are quite vague and not commanding in nature. No evidence of any mental illness process other than substance use and personality issues that might confer risk for violence. Both his substance use and the personality issues are chronic risk factors. Violence risk - self (6 mos) Patient is at chronically elevated risk from his antisocial personality and substance use issues. He continues to claim vague suicidal ideation. Substance Abuse History Drugs/Alcohol past 12 months Patient attempts to minimize alcohol use. Alcohol level on presentation at outside hospital was 142. Toxicology was negative, although urine toxicology screens are not always sensitive for clonazepam. Past Family Social History Coded Allergies: No Known Allergies (Unverified , 03/21/16) Past Medical History See electronic medical record Discontinued Scripts Fluoxetine 20 Mg Cap40 Mg PO DAILY 7 Days Ref 3 Prov:Bj Romero MD 05/16/16 Fluoxetine (Prozac)10 Mg Cap10 Mg PO DAILY 7 Days Ref 3 Prov:Bj Romero MD 05/16/16 Clonazepam (Klonopin)0.5 Mg Tab0.25 Mg PO Q12HR 7 Days Ref 0 Prov:Bj Romero MD 05/16/16 Current Medications Medications (Trade) Dose Ordered Sig/Brenda Route Start Time Stop Time Status Last Admin (Tylenol) 650 mg Q4H PRN PO 05/18/16 21:30 (Milk Of Magnesia Liq) 30 ml DAILY PRN PO 05/18/16 21:30 (Mag-Al Plus Susp Liq) 30 ml Q6H PRN PO 05/18/16 21:30 (Habitrol 21 Mg Patch.24 Hr) 1 patch DAILY T-DERMAL 05/19/16 09:00 Miscellaneous Information 1 HS T-DERMAL 05/19/16 21:00 (Ativan) 1 mg Q4H PRN PO 05/18/16 22:00 05/18/16 21:57 (Ativan Inj) 1 mg Q4H PRN IV PUSH 05/18/16 22:00 (Ativan) 2 mg Q2H PRN PO 05/18/16 22:00 (Ativan Inj) 2 mg Q2H PRN IV PUSH 05/18/16 22:00 (Ativan Inj) 2 mg Q1H PRN IV PUSH 05/18/16 22:00 (Ativan Inj) 2 mg Q15M PRN IV PUSH 05/18/16 22:00 (Romazicon Inj) 0.2 mg Q1M PRN IV PUSH 05/18/16 22:00 Family History See above Social History See above Patient's Strengths (min. 2) In a monitored setting. Verbally fluent. Physical Exam Physical examination completed at outside hospital. On my examination today, patient appears to be in no acute physical distress. He has no abnormal motor movements. In particular no signs of alcohol withdrawal. Labs and vital signs reviewed: Vital Signs Vital Signs Date Time Temp Pulse Resp B/P Pulse Ox O2 Delivery O2 Flow Rate FiO2 05/19/16 06:19 97.9 73 17 148/93 97 Lab Results Item Value Date Time Sodium Level 140 MEQ/L 05/19/16 07 Potassium Level 3.7 MEQ/L 05/19/16 07 Chloride Level 108 MEQ/L H 05/19/16 07 Carbon Dioxide Level 26.2 MEQ/L 05/19/16 07 Blood Urea Nitrogen 8 MG/DL 05/19/16 0705 Creatinine 0.82 MG/DL 05/19/16 07 Laboratories from outside hospital reviewed: CBC significant for a mild anemia with a hemoglobin of 11.4, stable and chronic on review of previous CBCs obtained here. CMP reveals a glucose of 114, otherwise unremarkable. Urinalysis bland. Alcohol level CXLII. Toxicology negative. Head CT negative for acute process. Chest x-ray report reviewed. Mental Status Examination Patient is casually dressed. He is fairly well groomed. He appears to be maintaining basic hygiene. He is awake and alert and oriented to person, place and approximate date. No evidence of delirium. No motoric abnormalities noted. Steady gait and station. Speech is within normal limits for rate, tone and volume. Language and fund of knowledge seem average. Mood is described as somewhat depressed and affect is sullen. Thought process linear. No loosening of associations. No evident delusions. Claims vague auditory hallucinations but does not appear internally stimulated. No other hallucinatory material. Vague suicidal ideation. No reported urge to hurt himself on the inpatient psychiatric unit. No homicidal ideation. Insight and judgment are poor, particularly with respect to alcohol use. Previous Suicide Attempts: No Previous Homicide Attempts: No Assessment & Plan Problem List: (1) Adjustment disorder with mixed disturbance of emotions and conduct ICD Code: F43.25 (2) Alcohol dependence ICD Code: F10.20 (3) Mixed personality disorder Assessment & Plan: Antisocial & Cluster C ICD Code: F60.89 Assessment & Plan This is a 36-year-old male with psychiatric history as detailed above who presents in transfer from outside hospital under a Diaz act. Patient continues to display prominent antisocial personality traits. Alcohol use issues seem to be coming to the fore, and it is particularly concerning that the patient combined alcohol with benzodiazepines even though he was specifically instructed not to. I suspect patient's overall prognosis is poor, but we must do what we can to manage modifiable risk factors. Since the substance use is likely the greatest modifiable risk factor, I think it makes sense at this juncture to refer the patient for chemical dependency assessment and treatment emergently. I will therefore lift the Diaz act and replace it with a physician's certificate for emergency admission to an addiction receiving facility. I will retain the patient on the inpatient psychiatric unit in the meantime. Admit inpatient. Lift a Diaz act and replace with physician's certificate. I have instructed the charge nurse to contact Anthony Tavarez with plan to transfer the patient to the addiction receiving facility. I have been informed that the patient is first on the wait list at [facility]. In the meantime, I will initiate a CIWA scale with Ativan for the management of any withdrawal. Thiamine and folate. Seizure and fall precautions. I will continue patient's psychotropic medication regimen, except for the Klonopin of course: Prozac 50 mg daily, Seroquel 100 mg 3 times daily and 600 mg at bedtime, gabapentin 1200 mg 3 times daily. Continue Levaquin 750mg PO daily. Vitals every shift. Counselor to see. Disposition planning. Estimated length of stay: 2-3 days with plan for transfer to addiction receiving facility. Discharge Planning Transfer to addiction receiving facility once a bed is available. Request HC Surrog/Guard Advoc?: No Problem Qualifiers (1) Alcohol dependence: Qualified Code: F10.20 - Uncomplicated alcohol dependence Bj Romero MD May 19, 2016 09:05
[2016-05-19] MEDS: NICOTINE 21 MG/24 HR PATCH T-DERMAL SCH (09:44)
[2016-05-19] MEDS: LORazepam 1 MG TAB PO PRN (09:44)
[2016-05-19] MEDS: FLUoxetine HCL 10 MG CAP PO SCH (12:15)
[2016-05-19] MEDS: QUEtiapine FUMARATE 100 MG TAB PO SCH ×2 (13:00→18:00)
[2016-05-19] MEDS: GABAPENTIN 400 MG CAP PO SCH ×2 (13:00→18:00)
[2016-05-19] MEDS: LEVOFLOXACIN 750 MG TAB PO SCH (14:00)
[2016-05-19 18:58] LABS: HEMOGLOBIN A1a 1.1 %; HEMOGLOBIN A1b 0.7 %; HEMOGLOBIN Ao 86.2 %; HEMOGLOBIN F 1.4 %; HEMOGLOBIN LA1C 1.8 %; HEMOGLOBIN P3 3.3 %
[2016-05-19] MEDS: REMOVE OLD NICOTINE PATCH T-DERMAL SCH (21:00)
[2016-05-19] MEDS: QUEtiapine FUMARATE 300 MG TAB PO SCH (21:36)
[2016-05-20 06:10] VITALS: BP 134/84; PULSE 111; RESP 18; TEMP 98; O2SAT 98
[2016-05-20] MEDS: NICOTINE 21 MG/24 HR PATCH T-DERMAL SCH (09:00)
[2016-05-20] MEDS: QUEtiapine FUMARATE 100 MG TAB PO SCH ×3 (09:25→18:00)
[2016-05-20] MEDS: FOLIC ACID 1 MG TAB PO SCH (09:25)
[2016-05-20] MEDS: THIAMINE HCL 100 MG TAB PO SCH (09:25)
[2016-05-20] MEDS: FLUoxetine HCL 10 MG CAP PO SCH (09:25)
[2016-05-20] MEDS: GABAPENTIN 400 MG CAP PO SCH ×3 (09:26→18:00)
[2016-05-20] MEDS ORDERED: ACETAMINOPHEN 325 MG TAB PO PRN (12:00)
[2016-05-20] MEDS ORDERED: PILL SPLITTER OTHER PRN (12:00)
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
[2016-05-20] MEDS: hydrOXYzine PAMOATE 25 MG CAP PO PRN ×2 (13:36→19:40)
[2016-05-20] MEDS: LEVOFLOXACIN 750 MG TAB PO SCH (14:00)
[2016-05-20 17:00] VITALS: BP 157/90; PULSE 99; RESP 18; TEMP 97.6
[2016-05-20] MEDS: REMOVE OLD NICOTINE PATCH T-DERMAL SCH (20:24)
[2016-05-20] MEDS: QUEtiapine FUMARATE 300 MG TAB PO SCH (20:24)
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
[2016-05-21 06:42] VITALS: BP 115/61; PULSE 72; RESP 16; TEMP 98.2; O2SAT 96
[2016-05-21] MEDS: NICOTINE 21 MG/24 HR PATCH T-DERMAL SCH (09:00)
[2016-05-21] MEDS: GABAPENTIN 400 MG CAP PO SCH ×3 (09:30→17:22)
[2016-05-21] MEDS: QUEtiapine FUMARATE 100 MG TAB PO SCH ×3 (09:30→17:22)
[2016-05-21] MEDS: FLUoxetine HCL 10 MG CAP PO SCH (09:31)
[2016-05-21] MEDS: FOLIC ACID 1 MG TAB PO SCH (09:31)
[2016-05-21] MEDS: THIAMINE HCL 100 MG TAB PO SCH (09:31)
[2016-05-21] MEDS: hydrOXYzine PAMOATE 25 MG CAP PO PRN ×2 (09:33→15:34)
--- NOTE | 2016-05-21 12:21 | HHI.PYPN ---
Subjective Remarks Pt seen and discussed with staff. Yesterday pt became agitated on unit and was restrained for safety. No agitation or aggression so far today. He reports that mood is "so-so". He denies SI/HI, but c/o of anger. He asks MD to prescribe him "norco 10s". He was declined again from [facility]. No SI/HI. Objective Alert: Yes [place]: Person, Place, Date, Situation Mood: Anxious, Other (irritable) Affect: Restricted (dysphoric) Memory Intact: Comment (Intact on clinical exam) Hallucinations: Other (No AVH) Delusions: No Delusion Type: Other (No delusions) Suicidal: Ideation (denies) Homicidal: Ideation (denies) Insight/Judgement poor Vitals/IOs Vital Signs Date Time Temp Pulse Resp B/P Pulse Ox O2 Delivery O2 Flow Rate FiO2 05/21/16 06:42 98.2 72 16 115/61 96 Assessment & Plan Problem List: (1) Adjustment disorder with mixed disturbance of emotions and conduct ICD Code: F43.25 (2) Alcohol dependence ICD Code: F10.20 (3) 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 Estimated LOS: days Justification for Cont. Inpt. impairments in safety Request HC Surrog/Guard Advoc?: No Problem Qualifiers (1) Alcohol dependence: Qualified Code: F10.20 - Uncomplicated alcohol dependence Diane Cade MD May 21, 2016 12:21
[2016-05-21] MEDS: LEVOFLOXACIN 750 MG TAB PO SCH (13:02)
[2016-05-21 17:31] VITALS: BP 134/92; PULSE 92; RESP 18; TEMP 98.6; O2SAT 98
[2016-05-21] MEDS: QUEtiapine FUMARATE 300 MG TAB PO SCH (20:07)
[2016-05-21] MEDS: REMOVE OLD NICOTINE PATCH T-DERMAL SCH (21:00)
[2016-05-22 05:57] VITALS: BP 125/83; PULSE 66; RESP 16; TEMP 97.3; O2SAT 98
[2016-05-22] MEDS: NICOTINE 21 MG/24 HR PATCH T-DERMAL SCH (09:00)
[2016-05-22] MEDS: QUEtiapine FUMARATE 100 MG TAB PO SCH ×3 (09:46→18:23)
[2016-05-22] MEDS: THIAMINE HCL 100 MG TAB PO SCH (09:47)
[2016-05-22] MEDS: hydrOXYzine PAMOATE 25 MG CAP PO PRN ×3 (09:47→20:19)
[2016-05-22] MEDS: FOLIC ACID 1 MG TAB PO SCH (09:47)
[2016-05-22] MEDS: FLUoxetine HCL 10 MG CAP PO SCH (09:48)
[2016-05-22] MEDS: GABAPENTIN 400 MG CAP PO SCH ×3 (09:48→18:22)
[2016-05-22] MEDS: LEVOFLOXACIN 750 MG TAB PO SCH (14:03)
--- NOTE | 2016-05-22 14:19 | HHI.PYPN ---
Subjective Remarks Pt seen and discussed with staff. He continues to engage in drug seeking behaviors. He requests that medical doctor be consulted "to see if he'll give me norcos." He has not been agitated today. He is compliant with medications. He denies SI/HI. Objective Alert: Yes [place]: Person, Place, Date, Situation Mood: Other (irritable) Affect: Restricted (dysphoric) Memory Intact: Comment (Intact on clinical exam) Hallucinations: Other (No AVH) Delusions: No Delusion Type: Other (No delusions) Suicidal: Ideation (denies) Homicidal: Ideation (denies) Insight/Judgement poor Vitals/IOs Vital Signs Date Time Temp Pulse Resp B/P Pulse Ox O2 Delivery O2 Flow Rate FiO2 05/22/16 05:57 97.3 66 16 125/83 98 Assessment & Plan Problem List: (1) Adjustment disorder with mixed disturbance of emotions and conduct ICD Code: F43.25 (2) Alcohol dependence ICD Code: F10.20 (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 Estimated LOS: days Justification for Cont. Inpt. risk of decompensation. monitoring for safety. Request HC Surrog/Guard Advoc?: No Problem Qualifiers (1) Alcohol dependence: Qualified Code: F10.20 - Uncomplicated alcohol dependence Diane Cade MD May 22, 2016 14:19
[2016-05-22 18:36] VITALS: BP 116/74; PULSE 98; RESP 18; TEMP 97.5; O2SAT 96
[2016-05-22] MEDS: QUEtiapine FUMARATE 300 MG TAB PO SCH (21:09)
[2016-05-23 05:58] VITALS: BP 110/61; PULSE 84; RESP 18; TEMP 97.2; O2SAT 96
[2016-05-23] MEDS: GABAPENTIN 400 MG CAP PO SCH ×2 (08:18→12:31)
[2016-05-23] MEDS: QUEtiapine FUMARATE 100 MG TAB PO SCH ×2 (08:18→12:32)
[2016-05-23] MEDS: THIAMINE HCL 100 MG TAB PO SCH (08:18)
[2016-05-23] MEDS: FLUoxetine HCL 10 MG CAP PO SCH (08:18)
[2016-05-23] MEDS: FOLIC ACID 1 MG TAB PO SCH (08:19)
[2016-05-23] MEDS ORDERED: QUET1TAB10 PO (10:55)
[2016-05-23] MEDS ORDERED: HYDR50CA PO (10:55)
[2016-05-23] MEDS ORDERED: LEVA750T PO (10:55)
[2016-05-23] MEDS ORDERED: QUET1TAB8 PO (10:55)
[2016-05-23] MEDS ORDERED: FLUO-1 PO (10:55)
[2016-05-23] MEDS ORDERED: NEUR400C PO (10:55)
[2016-05-23] MEDS ORDERED: HYDR1CAP30 PO (10:56)
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
[2016-05-23] MEDS: hydrOXYzine PAMOATE 25 MG CAP PO PRN (12:31)
[2016-05-23] MEDS: LEVOFLOXACIN 750 MG TAB PO SCH (14:00)
== END 2016-05-23 14:05 | disposition home or self-care (01) | DRG 882 ==
LOC: H270 21:00
PROVIDERS: ADMIT Psychiatry & Neurology Psychiatry; ATTEND Psychiatry & Neurology Psychiatry
DX: F43.25 Adjustment disorder with mixed disturbance of emotions and conduct (principal); F60.2 Antisocial personality disorder; F10.20 Alcohol dependence, uncomplicated; F60.89 Other specific personality disorders; G89.29 Other chronic pain; Z76.5 Malingerer [conscious simulation]; Z79.899 Other long term (current) drug therapy; Z59.0 Homelessness
CPT/HCPCS: 73130; 80048; 80061; 83036; Q0177

== ENCOUNTER 2016-06-01 20:11 | Emergency (ER) | payer MEDICAID, OTHER ==
[~2016-06-01] VITALS: Ht 188 cm; Wt 113.0 kg
[~2016-06-01 20:11] MED LIST changes: -CLON.5 PO; -FLUO20CA4 PO; +HYDR1CAP30 PO; +HYDR50CA PO; +LEVA750T PO; +NEUR400C PO; +QUET1TAB10 PO; +QUET1TAB8 PO
[2016-06-01 20:27] VITALS: BP 131/81; PULSE 94; RESP 18; TEMP 97.9; O2SAT 96
[2016-06-01 20:57] VITALS: BP 140/87; PULSE 114; RESP 16; O2SAT 99
[2016-06-01 21:15] VITALS: O2SAT 99
[2016-06-01] MEDS ORDERED: SODIUM CHLORIDE 0.9% FLUSH 10 ML FLUSH IVF PRN (21:15)
[2016-06-01] MEDS ORDERED: SODIUM CHLOR 0.9% 1000 ML INJ 1,000 ML IV ONE (21:15)
--- NOTE | 2016-06-01 21:30 | PD ---
HPI Chief Complaint: OD/ Ingestion Time Seen by Provider: 20:58 Travel History International Travel<30 days: No Contact w/Intl Traveler<30days: No Traveled to known affect area: No History of Present Illness HPI Patient is a 36 year old male who presents to ER with c/o of drug overdose. Reports that since 1 PM, he has been "popping 1mg xanax pills," patient reports that he has taken around 25 tablets of 1 mg Xanax today in attempt to commit suicide. Patient reports that he also took a few shots of red bull today as well. Patient reports that he does not feel like living, denies homicidal ideation lesion. Patient reports that he has tried to commit suicide in the past by overdosing on medications. PFSH Past Medical History Arthritis: No Asthma: No Autoimmune Disease: No Bipolar Disorder: Yes Anxiety: Yes Depression: Yes Heart Rhythm Problems: No Cancer: No Cardiovascular Problems: No High Cholesterol: No Chemotherapy: No Chest Pain: No Congestive Heart Failure: No COPD: No Cerebrovascular Accident: No Diabetes: No Diminished Hearing: No Endocrine: No GERD: No Genitourinary: No Hiatal Hernia: No Hypertension: Yes Immune Disorder: No Kidney Stones: No Musculoskeletal: Yes (LEFT FOOT DISCOMFOT ) Neurologic: No Psychiatric: Yes Reproductive: No Immunizations Current: Yes Migraines: No Radiation Therapy: No Renal Failure: No Seizures: No Sickle Cell Disease: No Sleep Apnea: No Thyroid Disease: No Ulcer: No Tetanus Vaccination: Unknown Past Surgical History Abdominal Surgery: Yes (Appendix removed) AICD: No Appendectomy: Yes Arteriovenous Shunt: No Cardiac Surgery: No Ear Surgery: No Endocrine Surgery: No Eye Surgery: No Genitourinary Surgery: No Gynecologic Surgery: No Insulin Pump: No Joint Replacement: No Oral Surgery: No Pacemaker: No Thoracic Surgery: No Social History Alcohol Use: Yes (OCASIONALLY) Tobacco Use: Yes Allergies-Medications (Allergen,Severity, Reaction): Coded Allergies: No Known Allergies (Unverified , 06/01/16) Reported Meds & Prescriptions Reported Meds & Active Scripts Active Hydroxyzine Pamoate 25 Mg Cap 25 Mg PO Q6H PRN Quetiapine (Quetiapine Fumarate) 100 Mg Tab 150 Mg PO TID 2 Days Quetiapine (Quetiapine Fumarate) 300 Mg Tab 600 Mg PO HS 2 Days Levaquin (Levofloxacin) 750 Mg Tab 750 Mg PO Q24H 4 Days Hydroxyzine Pamoate 50 Mg Cap 50 Mg PO HS 2 Days Neurontin (Gabapentin) 400 Mg Cap 1,200 Mg PO TID 2 Days Prozac (Fluoxetine HCl) 10 Mg Cap 50 Mg PO DAILY 2 Days Review of Systems General / Constitutional: No: Fever Eyes: No: Visual changes HENT: No: Headaches Cardiovascular: No: Chest Pain or Discomfort Respiratory: No: Shortness of Breath Gastrointestinal: No: Abdominal Pain Genitourinary: No: Dysuria Musculoskeletal: No: Pain Skin: No Rash Neurologic: No: Weakness Psychiatric: Positive: Anxiety, Depression, Suicidal Ideations, Substance Abuse Endocrine: No: Polydipsia Hematologic/Lymphatic: No: Easy Bruising Physical Exam Narrative GENERAL: No acute distress SKIN: Focused skin assessment warm/dry. HEAD: Atraumatic. Normocephalic. EYES: Pupils 3 reactive. No scleral icterus. No injection or drainage. ENT: No nasal bleeding or discharge. Mucous membranes pink and moist. NECK: Trachea midline. No JVD. CARDIOVASCULAR: Regular rate and rhythm. No murmur appreciated. RESPIRATORY: No accessory muscle use. Clear to auscultation. Breath sounds equal bilaterally. GASTROINTESTINAL: Abdomen soft, non-tender, nondistended. Hepatic and splenic margins not palpable. MUSCULOSKELETAL: No obvious deformities. No clubbing. No cyanosis. No edema. NEUROLOGICAL: Awake and alert. No obvious cranial nerve deficits. Motor grossly within normal limits. Normal speech. PSYCHIATRIC: Patient with suicidal ideation Data Data Last Documented VS Vital Signs Date Time Temp Pulse Resp B/P Pulse Ox O2 Delivery O2 Flow Rate FiO2 06/01/16 21:15 99 Room Air 06/01/16 20:57 114 16 140/87 06/01/16 20:27 97.9 Orders Complete Blood Count With Diff (06/01/16 21:02) Comprehensive Metabolic Panel (06/01/16 21:02) Oximetry (06/01/16 21:02) Iv Access Insert/Monitor (06/01/16 21:02) Ecg Monitoring (06/01/16 21:02) Psych Screen (06/01/16 21:02) Sodium Chloride 0.9% Flush (Ns Flush) (06/01/16 21:15) Drug Screen, Random Urine (06/01/16 21:02) Alcohol (Ethanol) (06/01/16 21:02) Salicylates (Aspirin) (06/01/16 21:02) Tylenol (Acetaminophen) (06/01/16 21:02) Sodium Chlor 0.9% 1000 Ml Inj (Ns 1000 M (06/01/16 21:15) Call Poison Control (06/01/16 21:02) MDM Medical Decision Making Medical Screen Exam Complete: Yes Emergency Medical Condition: Yes Interpretation(s) Vital Signs Date Time Temp Pulse Resp B/P Pulse Ox O2 Delivery O2 Flow Rate FiO2 06/01/16 21:15 99 Room Air 06/01/16 20:57 114 16 140/87 99 Room Air 06/01/16 20:29 18 96 06/01/16 20:27 97.9 94 18 131/81 96 Differential Diagnosis Depression, suicidal evaluations, drug overdose Narrative Course 36-year-old male who presents to emergency room after an overdose of Xanax 1 mg. Patient reports that since 1 PM today, he has taken around 25 pills and also had a few shots of alcohol. Patient reports that he did this in attempt to commit suicide. IV line was established, labs including tox screen ordered. IV fluids administered. Case is reviewed reports initial, requests patient be observed for 4-6 hours After cleared, patient will be seen by psychiatric screeners Maria M Rosario DO Jun 01, 2016 21:30
[2016-06-01 21:36] LABS: AUTOMATED NEUTROPHIL # 1.6 TH/MM3 (1.8-7.7); BASOPHIL # 0.1 TH/MM3 (0-0.2); BASOPHIL % 1.2 % (0.0-2.0); EOSINOPHIL # 0.1 TH/MM3 (0-0.4); HEMATOCRIT 41.7 % (39.0-51.0); HEMO FLAGS DIFF FINAL; LYMPH % 60.7 % (9.0-44.0); LYMPHOCYTE # 3.3 TH/MM3 (1.0-4.8); MEAN CELL VOLUME 86.5 FL (80.0-100.0); MEAN CORPUSCULAR HEMOGLOBIN 29.1 PG (27.0-34.0); MEAN CORPUSCULAR HGB CONC 33.6 % (32.0-36.0); MONO % 7.8 % (0.0-8.0); NEUT % 29.3 % (16.0-70.0); PLATELET COUNT 321 TH/MM3 (150-450); RED BLOOD COUNT 4.82 MIL/MM3 (4.50-5.90); RED CELL DISTRIBUTION WIDTH 14.5 % (11.6-17.2); WHITE BLOOD COUNT 5.4 TH/MM3 (4.0-11.0)
[2016-06-01 21:49] LABS: ANION GAP 10 MEQ/L (5-15)
[2016-06-01 21:52] LABS: ACETAMINOPHEN LESS THAN 2.0 MCG/ML (10.0-30.0); ALKALINE PHOSPHATASE 69 U/L (45-117); ALT (GPT) 30 U/L (12-78); AST (GOT) 24 U/L (15-37); BICARBONATE 27.4 MEQ/L (21.0-32.0); BLOOD UREA NITROGEN 9 MG/DL (7-18); CHLORIDE 101 MEQ/L (98-107); GLOMERULAR FILTRATION RATE 92 ML/MIN (>89); POTASSIUM 3.5 MEQ/L (3.5-5.1); SODIUM (NA) 138 MEQ/L (136-145); TOTAL BILIRUBIN ADULT 0.8 MG/DL (0.2-1.0)
[2016-06-01 21:59] LABS: AMPHETAMINE, URINE NEG (NEG); BARBITURATES, URINE NEG (NEG); COCAINE, URINE NEG (NEG)
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
[2016-06-02] MEDS ORDERED: SODIUM CHLORIDE 0.9% FLUSH 10 ML FLUSH IVF PRN
[2016-06-02 01:00] LABS: ANION GAP 11 MEQ/L (5-15); AST (GOT) 20 U/L (15-37); BICARBONATE 26.2 MEQ/L (21.0-32.0); BLOOD UREA NITROGEN 9 MG/DL (7-18); CHLORIDE 103 MEQ/L (98-107); GLOMERULAR FILTRATION RATE 87 ML/MIN (>89); MAGNESIUM 1.9 MG/DL (1.5-2.5); SODIUM (NA) 140 MEQ/L (136-145)
[2016-06-02 01:05] LABS: ALKALINE PHOSPHATASE 63 U/L (45-117); ALT (GPT) 28 U/L (12-78); CREATINE KINASE 234 U/L (39-308); TOTAL BILIRUBIN ADULT 0.8 MG/DL (0.2-1.0)
[2016-06-02 01:19] LABS: CKMB 1.2 NG/ML (0.5-3.6)
--- NOTE | 2016-06-02 01:35 | RADRPT ---
EXAM DATE/TIME: 06/02/2016 00:32 [facility] COMPARISON: CHEST SINGLE AP, May 07, 2016, 0:50. INDICATIONS : Chest pain starting today MEDICAL HISTORY : None. SURGICAL HISTORY : None. ENCOUNTER: Initial ACUITY: 1 day PAIN SCORE: 5/10 LOCATION: Bilateral chest FINDINGS: A single view of the chest demonstrates the lungs to be symmetrically aerated without evidence of mas s, infiltrate or effusion. The cardiomediastinal contours are unremarkable. Osseous structures are intact. CONCLUSION: No acute disease. Bakari Veliz MD on June 02, 2016 at 1:34 Board Certified Radiologist. This report was verified electronically.
[2016-06-02 06:00] VITALS: BP 107/65; PULSE 80; RESP 16; O2SAT 97
[2016-06-02 08:55] VITALS: BP 140/85; PULSE 91; RESP 18; TEMP 97.9; O2SAT 96
[2016-06-02 13:10] VITALS: BP 113/65; PULSE 69; RESP 18
--- NOTE | 2016-06-02 18:29 | PD ---
History of Present Illness Chief Complaint: OD/ Ingestion Time Seen by Provider: 15:40 Travel History International Travel<30 Days: No Contact w/Intl Traveler<30days: No Known affected area: No Legal Status Legal Status: Diaz Act Diaz Act Signed By: Maria M Rosario DO History of Present Illness: History of Present Illness Patient is a 36 year old male with history of adjustment disorder and mixed personality disorder as well as substance use issues who presents to ER with c/ o of drug overdose. He initially presented on a voluntary basis but was then placed under a BA by ED physician , Dr. Rosario. He reported that " since 1 PM, he has been popping 1mg Xanax pills, patient reports that he has taken around 25 tablets of 1 mg Xanax today in attempt to commit suicide. Patient reports that he also took a few shots of red bull today as well." Patient's toxicology is positive for cannabinoids, benzos and BAL of 151. EMR is reviewed. He has had multiple admissions to [facility] since February 2016., totalling 5. His last admission was on May 18 and he was discharged on May. Patient has been monitored in J pod and he has been sleeping most of the morning. At the time of this evaluation he is awake, alert and oriented. He is minimally cooperative and is evasive with answering questions. He states that he is here because he " tried to kill my self with Xanax" which he reports were prescribed by his psychiatrist in [facility]. I contacted [facility] and they reported that the patient was seen on April [address] Jackson and was only prescribed Vistaril. He also states that the reason why he overdosed was because he was out of his medication since he was discharged from [facility]. He then requests to be admitted to " [id number] unit". I advised him that in view of multiple admissions to that unit with seemingly poor clinical benefits that that is not an option at this time. He becomes angry and states " if you discharge me I guarantee I will be back here before the end of the day". I advised him that initial plan is to either transfer him to [facility] or to another facility where he can receive treatment for both his substance use as well as his psychiatric issues. He states that he prefers to be discharged than to go to [facility] Past Medical History Arthritis: No Asthma: No Autoimmune Disease: No Bipolar Disorder: Yes Anxiety: Yes Depression: Yes Heart Rhythm Problems: No Cancer: No Cardiovascular Problems: No High Cholesterol: No Chemotherapy: No Chest Pain: No Congestive Heart Failure: No COPD: No Cerebrovascular Accident: No Diabetes: No Diminished Hearing: No Endocrine: No GERD: No Genitourinary: No Hiatal Hernia: No Hypertension: Yes Immune Disorder: No Kidney Stones: No Musculoskeletal: Yes (LEFT FOOT DISCOMFOT ) Neurologic: No Psychiatric: Yes Reproductive: No Immunizations Current: Yes Migraines: No Radiation Therapy: No Renal Failure: No Seizures: No Sickle Cell Disease: No Sleep Apnea: No Thyroid Disease: No Ulcer: No Tetanus Vaccination: Unknown Past Surgical History Abdominal Surgery: Yes (Appendix removed) AICD: No Appendectomy: Yes Arteriovenous Shunt: No Cardiac Surgery: No Ear Surgery: No Endocrine Surgery: No Eye Surgery: No Genitourinary Surgery: No Gynecologic Surgery: No Insulin Pump: No Joint Replacement: No Oral Surgery: No Pacemaker: No Thoracic Surgery: No Psychiatric History Psychiatric History Hx Psychiatric Treatment: depression, anxiety History of Inpatient Treatment: Yes ([facility] multiple admissions since Feb 2016.) Guns or firearms in home: No Social History male. Currently homeless. Hx Alcohol Use: Yes (OCASIONALLY) Hx Tobacco Use: Yes Hx Substance Use: Yes Substance Use Type: Alcohol, Marijuana, Prescription Medications, Benzos ( Valium,Xanax) Hx of Substance Use Treatment: No Family Psychiatric History Unknown at this time. Allergies-Medications (Allergen,Severity, Reaction): Coded Allergies: No Known Allergies (Unverified , 06/01/16) Reported Meds & Prescriptions Reported Meds & Active Scripts Active Hydroxyzine Pamoate 25 Mg Cap 25 Mg PO Q6H PRN Quetiapine (Quetiapine Fumarate) 100 Mg Tab 150 Mg PO TID 2 Days Quetiapine (Quetiapine Fumarate) 300 Mg Tab 600 Mg PO HS 2 Days Levaquin (Levofloxacin) 750 Mg Tab 750 Mg PO Q24H 4 Days Hydroxyzine Pamoate 50 Mg Cap 50 Mg PO HS 2 Days Neurontin (Gabapentin) 400 Mg Cap 1,200 Mg PO TID 2 Days Prozac (Fluoxetine HCl) 10 Mg Cap 50 Mg PO DAILY 2 Days Review of Systems ROS Limitations: Uncooperative Exam Alert: Yes Amelia: Person (ox4) Mood: Angry Affect: Other (angry) Speech: Clear, Logical Eye Contact: Normal Memory Intact: Comment (not tetsed) Hallucinations: Other (neagtive) Delusions: No Suicidal: Ideation (threats to possibly harm himself) Homicidal: Ideation (negative) Insight/Judgement poor. poor MDM Medical Decision Making Medical Record Reviewed: Yes Assessment/Plan 36 year old male with history of adjustment disorder, substance use disorder as well as personality disorder who presents after an alleged overdose of Xanax as a suicidal gesture. Patietn at this time will remain on BA and will be referred to [facility] for tretament of substance use disorder as well as treatment of psychiatric symptomatology. Orders Complete Blood Count With Diff (06/01/16 21:02) Comprehensive Metabolic Panel (06/01/16 21:02) Oximetry (06/01/16 21:02) Iv Access Insert/Monitor (06/01/16 21:02) Ecg Monitoring (06/01/16 21:02) Psych Screen (06/01/16 21:02) Sodium Chloride 0.9% Flush (Ns Flush) (06/01/16 21:15) Drug Screen, Random Urine (06/01/16 21:02) Alcohol (Ethanol) (06/01/16 21:02) Salicylates (Aspirin) (06/01/16 21:02) Tylenol (Acetaminophen) (06/01/16 21:02) Sodium Chlor 0.9% 1000 Ml Inj (Ns 1000 M (06/01/16 21:15) Call Poison Control (06/01/16 21:02) Hand, Complete ([id number]) (06/01/16 ) Electrocardiogram (06/01/16 ) Ckmb (Isoenzyme) Profile (06/01/16 23:52) Comprehensive Metabolic Panel (06/01/16 23:52) Magnesium (Mg) (06/01/16 23:52) Troponin I (06/01/16 23:52) Chest, Single Ap (06/01/16 23:52) Sodium Chloride 0.9% Flush (Ns Flush) (06/02/16 00:00) CKMB (06/02/16 00:10) CKMB% (06/02/16 00:10) Diet Regular Basic (06/02/16 Dinner) Results Vital Signs Date Time Temp Pulse Resp B/P Pulse Ox O2 Delivery O2 Flow Rate FiO2 06/02/16 13:10 69 18 113/65 Room Air 06/02/16 08:55 97.9 91 18 140/85 96 Room Air 06/02/16 07:32 Room Air 06/02/16 06:00 80 16 107/65 97 Room Air 06/01/16 21:15 99 Room Air 06/01/16 20:57 114 16 140/87 99 Room Air 06/01/16 20:29 18 96 06/01/16 20:27 97.9 94 18 131/81 96 Laboratory Tests Test 06/01/16 06/02/16 19:00 00:10 White Blood Count 5.4 Red Blood Count 4.82 Hemoglobin 14.0 Hematocrit 41.7 Mean Corpuscular Volume 86.5 Mean Corpuscular Hemoglobin 29.1 Mean Corpuscular Hemoglobin 33.6 Concent Red Cell Distribution Width 14.5 Platelet Count 321 Mean Platelet Volume 7.8 Neutrophils (%) (Auto) 29.3 Lymphocytes (%) (Auto) 60.7 Monocytes (%) (Auto) 7.8 Eosinophils (%) (Auto) 1.0 Basophils (%) (Auto) 1.2 Neutrophils # (Auto) 1.6 Lymphocytes # (Auto) 3.3 Monocytes # (Auto) 0.4 Eosinophils # (Auto) 0.1 Basophils # (Auto) 0.1 CBC Comment DIFF FINAL Differential Comment Sodium Level 138 140 Potassium Level 3.5 3.0 Chloride Level 101 103 Carbon Dioxide Level 27.4 26.2 Anion Gap 10 11 Blood Urea Nitrogen 9 9 Creatinine 0.92 0.97 Estimat Glomerular Filtration 92 87 Rate Random Glucose 89 108 Calcium Level 9.0 8.5 Total Bilirubin 0.8 0.8 Aspartate Amino Transf 24 20 (AST/SGOT) Alanine Aminotransferase 30 28 (ALT/SGPT) Alkaline Phosphatase 69 63 Total Protein 8.0 7.6 Albumin 4.3 4.1 Salicylates Level LESS THAN 1.7 Urine Opiates Screen NEG Acetaminophen Level LESS THAN 2.0 Urine Barbiturates Screen NEG Urine Amphetamines Screen NEG Urine Benzodiazepines Screen POS Urine Cocaine Screen NEG Urine Cannabinoids Screen POS Ethyl Alcohol Level 151 Magnesium Level 1.9 Total Creatine Kinase 234 Creatine Kinase MB 1.2 Troponin I LESS THAN 0.02 Diagnosis Primary Impression: Adjustment disorder with mixed disturbance of emotions and conduct Additional Impression: Substance abuse Problem Qualifiers Sahara Menard Jun 02, 2016 18:29
--- NOTE | 2016-06-02 21:02 | EKG ---
Date Performed: 06/02/2016 Time Performed: 00:07:46 PTAGE: 36 years EKG: Sinus rhythm WITH SINUS ARRHYTHMIA NONSPECIFIC T-WAVE ABNORMALITY BORDERLINE ECG PREVIOUS TRACING : 05/08/2016 13.12 Compared to prior tracing no significant change DOCTOR: Robbie Obrien Interpretating Date/Time 06/02/2016 21:01:35
[2016-06-02 22:37] VITALS: BP 109/57; PULSE 73; RESP 18; O2SAT 95
[2016-06-03 02:00] VITALS: BP 119/75; PULSE 19; PULSE 91; RESP 18; O2SAT 98
[2016-06-03 06:16] VITALS: BP 105/61; PULSE 62; RESP 17; O2SAT 95
== END 2016-06-03 08:57 ==
LOC: NEPE 20:11 → NEPJ 06-03 08:57
DX: T42.4X2A Poisoning by benzodiazepines, intentional self-harm, initial encounter (principal); F43.25 Adjustment disorder with mixed disturbance of emotions and conduct; I49.8 Other specified cardiac arrhythmias
CPT/HCPCS: 71010; 73130; 80053; 80307; 82550; 82552; 83735; 84484; 85025; 93005; 99285; J7030